=== PATIENT | female | born 1945 | race Caucasian/White ===

== ENCOUNTER 2019-03-07 14:50 | Emergency (ER) | payer OTHER, MEDICAID ==
[~2019-03-07] VITALS: Ht 154.9 cm; Wt 108.9 kg
[2019-03-07 16:19] LABS: BASO % 0 % (0-3); EOS % 0 % (0-3); HEMOGLOBIN 13.4 g/dL (12.0-15.5); LYMPH # 1.4 x10^3/uL (1.0-4.8); LYMPH % 24 % (24-48); MEAN CORPUSCULAR HEMOGLOBIN 31 pg (25-35); MEAN CORPUSCULAR HGB CONC 34 g/dL (31-37); MEAN CORPUSCULAR VOLUME 91 fL (79-100); MONO # 0.7 x10^3/uL (0.0-1.1); MONO % 11 % (0-9); NEUT % 65 % (31-73); PLATELET COUNT 226 x10^3/uL (140-400); RED CELL DISTRIBUTION WIDTH 14.3 % (11.5-14.5); WHITE BLOOD COUNT 6.1 x10^3/uL (4.0-11.0)
[2019-03-07 16:28] LABS: CALCIUM 8.7 mg/dL (8.5-10.1); CREATININE 1.5 mg/dL (0.6-1.0); GFR 34.2; POTASSIUM 4.1 mmol/L (3.5-5.1)
--- NOTE | 2019-03-07 16:30 | RAD ---
Exam: Chest one view INDICATION: Bilateral lower extremity edema TECHNIQUE: Frontal view of the chest Comparisons: None FINDINGS: Heart is mildly enlarged. Pulmonary vessels are within normal limits. The lung and pleural spaces are clear. Sternotomy wires are noted. IMPRESSION: Cardiomegaly without acute pulmonary process. Electronically signed by: Ricardo Rosenberg MD (03/07/2019 4:27 PM) [facility]
[2019-03-07 16:34] LABS: ALBUMIN 3.5 g/dL (3.4-5.0); MAGNESIUM 1.8 mg/dL (1.8-2.4); TOTAL BILIRUBIN 0.6 mg/dL (0.2-1.0); TOTAL PROTEIN 7.1 g/dL (6.4-8.2)
[2019-03-07 16:38] LABS: BILIRUBIN,URINE NEGATIVE (NEG); CLARITY,URINE CLEAR; COLOR,URINE YELLOW; NITRITE,URINE NEGATIVE (NEG); PH,URINE 7.5; PROTEIN,URINE NEGATIVE (NEG-TRACE)
[2019-03-07 16:43] LABS: CREATINE KINASE 64 U/L (26-192)
[2019-03-07 16:48] LABS: BACTERIA,URINE MOD /HPF (0-FEW); RBC,URINE OCC /HPF (0-2); SQUAMOUS EPITHELIAL CELL,UR OCC /LPF
--- NOTE | 2019-03-07 17:03 | PHYS DOC ---
Past Medical History Past Medical History: Depression, High Cholesterol, Hypertension, Renal Failure, Other Additional Past Medical Histor: neuropathy (RANDEE COX APRN) Past Surgical History: Cholecystectomy, Coronary Bypass Surgery, Knee Replacement, Other Additional Past Surgical Histo: esophageal repair (RANDEE COX APRN) Additional Information: quit smoking 20-25 years ago Alcohol Use: None Drug Use: None (RANDEE COX APRN) Adult General Chief Complaint Chief Complaint: LOWER EXTREMITY SWELLING HPI HPI Patient is a 73 year old female with a history of open heart surgery years ago, depression, hypertension, renal failure, who presents to the ED today complaining of ongoing bilateral lower extremity swelling that began weeks ago but has gotten worse in the last 2 weeks. Patient was seen by the PCP, a few weeks ago was started Lasix but swelling has gotten worse, she states her PCP sent him to the ED today to be evaluated for CHF. Patient denies any chest pain. (RANDEE COX APRN) Review of Systems Review of Systems Constitutional: Denies fever or chills [] Eyes: Denies change in visual acuity, redness, or eye pain [] HENT: Denies nasal congestion or sore throat [] Respiratory: Denies cough or shortness of breath [] Cardiovascular: Reports bilateral lower extremity swelling and possible CHF. No additional information not addressed in HPI [] GI: Denies abdominal pain, nausea, vomiting, bloody stools or diarrhea [] : Denies dysuria or hematuria [] Musculoskeletal: Denies back pain or joint pain [] Integument: Denies rash or skin lesions [] Neurologic: Denies headache, focal weakness or sensory changes [] All other systems were reviewed and found to be within normal limits, except as documented in this note. (RANDEE COX APRN) Current Medications Current Medications Current Medications Medications (Trade) Dose Ordered Sig/Carmelo Start Time Stop Time Status Last Admin Dose Admin Furosemide (Lasix) 40 mg 1X ONCE 03/07/19 17:45 03/07/19 17:46 DC (BETITO NAVA MD) Allergies Allergies Allergies Coded Allergies Type Severity Reaction Last Updated Verified No Known Drug Allergies 03/07/19 No (BETITO NAVA MD) Physical Exam Physical Exam Constitutional: Well developed, well nourished, no acute distress, non-toxic appearance. [] HENT: Normocephalic, atraumatic, bilateral external ears normal, oropharynx moist, no oral exudates, nose normal. [] Eyes: PERRLA, EOMI, conjunctiva normal, no discharge. [] Neck: Normal range of motion, no tenderness, supple, no stridor. [] Cardiovascular:Heart rate regular rhythm, no murmur [] Lungs & Thorax: Bilateral breath sounds clear to auscultation [] Abdomen: Bowel sounds normal, soft, no tenderness, no masses, no pulsatile masses. [] Skin: Warm, dry, no erythema, no rash. [] Back: No tenderness, no CVA tenderness. [] Extremities: No tenderness, no cyanosis, no clubbing, ROM intact. +2 bilateral lower extremity edema slightly worse on the left than the right area negative Homans sign bilaterally. No erythema to bilateral lower extremities. Neurologic: Alert and oriented X 3, normal motor function, normal sensory fu nction, no focal deficits noted. [] Psychologic: Affect normal, judgement normal, mood normal. [] (RANDEE COX APRN) Current Patient Data Vital Signs Vital Signs Date Time Temp Pulse Resp B/P (MAP) Pulse Ox O2 Delivery O2 Flow Rate FiO2 03/07/19 15:51 98.1 63 20 136/63 (87) 95 Room Air 98.1 (BETITO NAVA MD) Lab Values Laboratory Tests Test 03/07/19 16:00 03/07/19 16:10 White Blood Count 6.1 x10^3/uL (4.0-11.0) Red Blood Count 4.30 x10^6/uL (3.50-5.40) Hemoglobin 13.4 g/dL (12.0-15.5) Hematocrit 39.0 % (36.0-47.0) Mean Corpuscular Volume 91 fL (79-100) Mean Corpuscular Hemoglobin 31 pg (25-35) Mean Corpuscular Hemoglobin Concent 34 g/dL (31-37) Red Cell Distribution Width 14.3 % (11.5-14.5) Platelet Count 226 x10^3/uL (140-400) Neutrophils (%) (Auto) 65 % (31-73) Lymphocytes (%) (Auto) 24 % (24-48) Monocytes (%) (Auto) 11 % (0-9) H Eosinophils (%) (Auto) 0 % (0-3) Basophils (%) (Auto) 0 % (0-3) Neutrophils # (Auto) 4.0 x10^3/uL (1.8-7.7) Lymphocytes # (Auto) 1.4 x10^3/uL (1.0-4.8) Monocytes # (Auto) 0.7 x10^3/uL (0.0-1.1) Eosinophils # (Auto) 0.0 x10^3/uL (0.0-0.7) Basophils # (Auto) 0.0 x10^3/uL (0.0-0.2) Sodium Level 144 mmol/L (136-145) Potassium Level 4.1 mmol/L (3.5-5.1) Chloride Level 108 mmol/L (98-107) H Carbon Dioxide Level 28 mmol/L (21-32) Anion Gap 8 (6-14) Blood Urea Nitrogen 34 mg/dL (7-20) H Creatinine 1.5 mg/dL (0.6-1.0) H Estimated GFR (Cockcroft-Gault) 34.2 BUN/Creatinine Ratio 23 (6-20) H Glucose Level 105 mg/dL (70-99) H Calcium Level 8.7 mg/dL (8.5-10.1) Magnesium Level 1.8 mg/dL (1.8-2.4) Total Bilirubin 0.6 mg/dL (0.2-1.0) Aspartate Amino Transferase (AST) 15 U/L (15-37) Alanine Aminotransferase (ALT) 18 U/L (14-59) Alkaline Phosphatase 76 U/L (46-116) Creatine Kinase 64 U/L (26-192) Creatine Kinase MB (Mass) 0.6 ng/mL (0.0-3.6) Creatine Kinase MB Relative Index % (0-4) Troponin I Quantitative < 0.017 ng/mL (0.000-0.055) YG-Jrk-G-Type Natriuretic Peptide 778 pg/mL (0-124) H Total Protein 7.1 g/dL (6.4-8.2) Albumin 3.5 g/dL (3.4-5.0) Albumin/Globulin Ratio 1.0 (1.0-1.7) Urine Color Yellow Urine Clarity Clear Urine pH 7.5 Urine Specific [place] 1.015 Urine Protein Negative mg/dL (NEG-TRACE) Urine Glucose (UA) Negative mg/dL (NEG) Urine Ketones (Stick) Negative mg/dL (NEG) Urine Blood Negative (NEG) Urine Nitrite Negative (NEG) Urine Bilirubin Negative (NEG) Urine Urobilinogen Dipstick 1.0 mg/dL (0.2 mg/dL) Urine Leukocyte Esterase Moderate (NEG) Urine RBC Occ /HPF (0-2) Urine WBC 5-10 /HPF (0-4) Urine Squamous Epithelial Cells Occ /LPF Urine Bacteria Mod /HPF (0-FEW) Urine Mucus Mod /LPF Laboratory Tests 03/07/19 16:00 Laboratory Tests 03/07/19 16:00 (BETITO NAVA MD) EKG EKG [address] Lockett sinus rhythm HR 61 no STEMI[] (RANDEE COX APRN) Radiology/Procedures Radiology/Procedures []PROCEDURE: PORTABLE CHEST 1V Exam: Chest one view INDICATION: Bilateral lower extremity edema TECHNIQUE: Frontal view of the chest Comparisons: None FINDINGS: Heart is mildly enlarged. Pulmonary vessels are within normal limits. The lung and pleural spaces are clear. Sternotomy wires are noted. IMPRESSION: Cardiomegaly without acute pulmonary process. Electronically signed by: Ricardo Márquez MD (03/07/2019 4:27 PM) [facility] DICTATED and SIGNED BY: RICARDO MÁRQUEZ MD DATE: 03/07/19 6080 (RANDEE COX APRN) Course & Med Decision Making Course & Med Decision Making Pertinent Labs and Imaging studies reviewed. (See chart for details) This is a 73-year-old female patient presenting to the ED today to be evaluated for possible CHF, has had bilateral lower extremity swelling for weeks. Was started on Lasix a few weeks ago. CBC-no acute findings, CMP creatinine of 1.5-baseline, BUN of 34, BNP 778. Chest xray in negative vitals are stable. Wanting to be d/c. Given lasik and d/c to home. F/u with exhibit cleaner in March for her appointment and PCP as soon as she can. Elevation of BLE encouraged as well as compression stockings (RANDEE COX APRN) Course & Med Decision Making Staff Physician Addendum: I was working in the ER during the course of this patient's visit. I was available for consultation as needed, but I was not directly involved in the care of this patient. (BETITO NAVA MD) Dragon Disclaimer Dragon Disclaimer This electronic medical record was generated, in whole or in part, using a voice recognition dictation system. (RANDEE COX APRN) Departure Departure Impression: Primary Impression: CHF (congestive heart failure) Additional Impression: Edema Disposition: 01 HOME, SELF-CARE Condition: STABLE Referrals: HERBIE LOUIS M.D. (PCP) follow up as soon as you can JANUSZ PLASCENCIA MD follow up in one week Patient Instructions: Edema, [id number], Heart Failure, [id number] Additional Instructions: You were seen in the Ed and noted to have congestion heart failure. Please follow up with your cardilogist was soon as you can, continue taking Lasix, elevate bilateral lower extremities, wear compression stockings. Also follow-up with your primary care doctor as soon as possible Problem Qualifiers Primary Impression: CHF (congestive heart failure) Heart failure type: unspecified Heart failure chronicity: acute Qualified Codes: I50.9 - Heart failure, unspecified Additional Impression: Edema Edema type: unspecified Qualified Codes: R60.9 - Edema, unspecified RANDEE COX APRN Mar 07, 2019 17:03 BETITO NAVA MD Mar 07, 2019 18:19
[2019-03-07] MEDS ORDERED: FUROSEMIDE 40 MG/4 ML VIAL. IVP ONE (17:45)
[2019-03-07 18:44] VITALS: BP 147/64
--- NOTE | 2019-03-08 02:16 | EKG ---
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
== END 2019-03-07 18:53 | disposition home or self-care (01) ==
LOC: ER 14:50
DX: R60.0 Localized edema (principal); I11.0 Hypertensive heart disease with heart failure; I50.9 Heart failure, unspecified; F32.9 Major depressive disorder, single episode, unspecified; Z90.49 Acquired absence of other specified parts of digestive tract; Z95.5 Presence of coronary angioplasty implant and graft; Z87.891 Personal history of nicotine dependence; Z96.659 Presence of unspecified artificial knee joint
CPT/HCPCS: 36415; 71045; 80053; 81001; 82553; 83735; 83880; 84484; 85025; 93005; 96374; 99285; J1940; 99284

== ENCOUNTER → 2019-04-06 | Outpatient (CLI) | payer MEDICARE, MEDICAID ==
[2019-03-07 18:44] VITALS: BP 147/64
[~2019-04-06] MED LIST: AMLO10TA8 PO; ASPI-630 PO; CARV25TA2 PO; FLUO40CA2 PO; FURO40TA4 PO; GABA600T7 PO; MULT-245 PO; PANT40TA77 PO; POTA20TA82 PO; SIMV20TA18 PO; TRAM50TA PO; TRAZ-86 PO; [UNRECOGNIZED DRUG - OTHER] PO
--- NOTE | 2019-04-06 14:59 | RAD ---
MR#: [id number] Date of Study: 04/06/2019 Ordering Physician: JANUSZ PLASCENCIA, Referring Physician: JANUSZ PLASCENCIA, Tech: JONATHAN Castro, RDMS, T APPROVED REPORT Patient Location : OUT-PATIENT Indications Lower Extremity Pain : Bilateral Lower Extremity Edema : Bilateral The bilateral SFJ are free of thrombus. The RGSV measures 6.1 mm and has no reflux The LGSV has been removed for bypass. No collateral flow noted. The bilateral lesser saphenous veins are w/o reflux. Risk Factors Obesity Past History GSV Harvesting for CABG : Left GSV Compression Stockings : Critical Notification Critical Value: No <Conclusion> 1. Negative for reflux in the RGSV and bilateral LSV 2. L GSV removed for bypass Signed by : Ozzie Boggs, Electronically Approved : 04/06/2019 14:58:41
== END | disposition home or self-care (01) ==
LOC: KCIC US 12:08
PROVIDERS: ATTEND Internal Medicine Cardiovascular Disease
DX: R60.0 Localized edema (principal); Z95.1 Presence of aortocoronary bypass graft
CPT/HCPCS: 93970

== ENCOUNTER 2019-05-27 13:12 | Inpatient (IN) | payer OTHER, MEDICAID ==
[~2019-05-27] VITALS: Ht 160 cm; Wt 109.0 kg
[2019-05-27] VITALS (16 sets, daily range): BP systolic 131–205; BP diastolic 66–86
--- NOTE | 2019-05-27 13:25 | PHYS DOC ---
Past Medical History Past Medical History: Depression, High Cholesterol, Hypertension, Renal Failure, Other Additional Past Medical Histor: neuropathy Past Surgical History: Cholecystectomy, Coronary Bypass Surgery, Knee R eplacement, Other Additional Past Surgical Histo: esophageal repair Alcohol Use: None Drug Use: None Adult General Chief Complaint Chief Complaint: TONGUE SWELLING/INJURY HPI HPI Patient is a 73 year old tONGUE SWELLING ONSET THIS MORNING CAME FROM HOME. Denies any new medications or foods just noticed it this morning when she woke up to have some mild shortness of breath feels like something is stuck back there her throat. Has a history of congestive heart failure and prior CABG Medics gave Benadryl prior to arrival Medications include tramadol fluoxetine. gabapentin carvedilol Klor-Con Lasix Zocor trazodone pantoprazole and amlodipine. This is based on [employer] medication review patient does not know her current medications as far as we know there is no MANPREET inhibitor. PMH PRIOR CABG AND ALSO PATIENT HAS A PRIOR ESOPHAGEAL SURGERY RUPTURE S/P MAJOR [id number] AT [facility] HTN Review of Systems Review of Systems Constitutional: Denies fever or chills [] Eyes: Denies change in visual acuity, redness, or eye pain [] HENT: Denies nasal congestion or sore throat [] Respiratory: Denies cough or shortness of breath [] Cardiovascular: No additional information not addressed in HPI [] GI: Denies abdominal pain, nausea, vomiting, bloody stools or diarrhea [] : Denies dysuria or hematuria [] Musculoskeletal: Denies back pain or joint pain [] Integument: Denies rash or skin lesions [] Neurologic: Denies headache, focal weakness or sensory changes [] Endocrine: Denies polyuria or polydipsia [] All other systems were reviewed and found to be within normal limits, except as documented in this note. Current Medications Current Medications Current Medications Medications (Trade) Dose Ordered Sig/Carmelo Start Time Stop Time Status Last Admin Dose Admin Diphenhydramine HCl (Benadryl) 25 mg 1X ONCE 05/27/19 14:00 05/27/19 14:01 DC 05/27/19 14:17 25 MG Hydralazine HCl (Apresoline Inj) 10 mg 1X ONCE 05/27/19 14:00 05/27/19 14:01 DC 05/27/19 14:19 10 MG Methylprednisolone Sodium Succinate (SOLU-Medrol 125MG VIAL) 125 mg 1X ONCE 05/27/19 13:30 05/27/19 13:31 DC 05/27/19 13:34 125 MG Allergies Allergies Allergies Coded Allergies Type Severity Reaction Last Updated Verified No Known Drug Allergies 03/07/19 No Physical Exam Physical Exam Constitutional: Well developed, well nourished, no acute distress, non-toxic appearance. [] HENT: Patient is mild to moderate swelling of the tongue is mostly on the lateral right side aspect of the tongue and goes from anterior to posterior is also some mild fullness of the right tonsillar pillar the uvula is visualized the airway appears patent at this time the patient has a fairly clear voice no stridor no respiratory distress. No lip swelling Neck: Normal range of motion, no tenderness, supple, no stridor. [] Cardiovascular:Heart rate regular rhythm, no murmur [] Lungs & Thorax: Bilateral breath sounds clear to auscultation [] Abdomen: Bowel sounds normal, soft, no tenderness, no masses, no pulsatile masses. [] Skin: Warm, dry, no erythema, no rash. [] Back: No tenderness, no CVA tenderness. [] Extremities: No tenderness, no cyanosis, no clubbing, ROM intact, no edema. [] Neurologic: Alert and oriented X 3, normal motor function, normal sensory function, no focal deficits noted. [] Psychologic: Affect normal, judgement normal, mood normal. [] Current Patient Data Vital Signs Vital Signs Date Time Temp Pulse Resp B/P (MAP) Pulse Ox O2 Delivery O2 Flow Rate FiO2 05/27/19 14:00 76 16 202/85 (124) 98 Room Air 05/27/19 13:15 98.0 98.0 Lab Values Laboratory Tests Test 05/27/19 13:20 White Blood Count 6.4 x10^3/uL (4.0-11.0) Red Blood Count 4.87 x10^6/uL (3.50-5.40) Hemoglobin 15.0 g/dL (12.0-15.5) Hematocrit 44.3 % (36.0-47.0) Mean Corpuscular Volume 91 fL (79-100) Mean Corpuscular Hemoglobin 31 pg (25-35) Mean Corpuscular Hemoglobin Concent 34 g/dL (31-37) Red Cell Distribution Width 13.7 % (11.5-14.5) Platelet Count 255 x10^3/uL (140-400) Neutrophils (%) (Auto) 70 % (31-73) Lymphocytes (%) (Auto) 20 % (24-48) L Monocytes (%) (Auto) 10 % (0-9) H Eosinophils (%) (Auto) 0 % (0-3) Basophils (%) (Auto) 0 % (0-3) Neutrophils # (Auto) 4.5 x10^3/uL (1.8-7.7) Lymphocytes # (Auto) 1.3 x10^3/uL (1.0-4.8) Monocytes # (Auto) 0.6 x10^3/uL (0.0-1.1) Eosinophils # (Auto) 0.0 x10^3/uL (0.0-0.7) Basophils # (Auto) 0.0 x10^3/uL (0.0-0.2) Prothrombin Time 12.6 SEC (11.7-14.0) Prothrombin Time INR 1.0 (0.8-1.1) Sodium Level 145 mmol/L (136-145) Potassium Level 3.8 mmol/L (3.5-5.1) Chloride Level 105 mmol/L (98-107) Carbon Dioxide Level 29 mmol/L (21-32) Anion Gap 11 (6-14) Blood Urea Nitrogen 19 mg/dL (7-20) Creatinine 1.1 mg/dL (0.6-1.0) H Estimated GFR (Cockcroft-Gault) 49.0 BUN/Creatinine Ratio 17 (6-20) Glucose Level 106 mg/dL (70-99) H Calcium Level 8.7 mg/dL (8.5-10.1) Total Bilirubin 0.6 mg/dL (0.2-1.0) Aspartate Amino Transferase (AST) 22 U/L (15-37) Alanine Aminotransferase (ALT) 22 U/L (14-59) Alkaline Phosphatase 92 U/L (46-116) LA-Wjo-V-Type Natriuretic Peptide 453 pg/mL (0-124) H Total Protein 7.7 g/dL (6.4-8.2) Albumin 3.8 g/dL (3.4-5.0) Albumin/Globulin Ratio 1.0 (1.0-1.7) Laboratory Tests 05/27/19 13:20 Laboratory Tests 05/27/19 13:20 EKG EKG [] Radiology/Procedures Radiology/Procedures [] Course & Med Decision Making Course & Med Decision Making Pertinent Labs and Imaging studies reviewed. (See chart for details) []ANGIOEDEMA TRY SOLUMEDROL AND FFP. GIVEN BENADRYL. NO EPI DUE TO PRESSURE 215 AND LOWER CONCERN FOR ANAPHYLAXIS I SPOKE WITH TREY FROM ANESTHESIA, HERMILA CAME DOWN TO SEE THE PATIENT, AGREES WITH ICU ADMIT FOR CLOSE OBSERVATION I CALLED DR LAWLER A HEADS UP PT IS STABLE AT THIS TIME, HE IS AWARE OF PATIENT, HE IS OPERATING OVER AT [facility] AT THIS TIME. REASSESSMENT 2 PM, PT STATES FEELS THAT THE SWELLING IS GOING DOWN A LITTLE BIT AND SOMEWHAT EASIER TO BREATHE. Critical care time was 35 minutes exclusive of procedures. FOR CLOSE AIRWAY MONITORING IN THE ER pt with improved symptoms in the er. still swelling not worse possibly slightly better, pt is symptomatically improved transferred to icu in stable condition, ffp being hung. Dragon Disclaimer Dragon Disclaimer This electronic medical record was generated, in whole or in part, using a voice recognition dictation system. Departure Departure Impression: Primary Impression: Angioedema Disposition: ADMITTED INPATIENT Admitting Physician: OMAR Condition: GUARDED Referrals: TERRY HICKMAN MD (PCP) BETITO NAVA MD May 27, 2019 13:25
[2019-05-27] MEDS ORDERED: methylPREDNISolone SOD SUCC PF 125 MG/2 ML VIAL. IV ONE (13:30)
[2019-05-27 13:34] LABS: BASO % 0 % (0-3); EOS % 0 % (0-3); HEMATOCRIT 44.3 % (36.0-47.0); LYMPH # 1.3 x10^3/uL (1.0-4.8); LYMPH % 20 % (24-48); MEAN CORPUSCULAR HEMOGLOBIN 31 pg (25-35); MEAN CORPUSCULAR HGB CONC 34 g/dL (31-37); MEAN CORPUSCULAR VOLUME 91 fL (79-100); MONO # 0.6 x10^3/uL (0.0-1.1); MONO % 10 % (0-9); NEUT # 4.5 x10^3/uL (1.8-7.7); NEUT % 70 % (31-73); PLATELET COUNT 255 x10^3/uL (140-400); RED BLOOD COUNT 4.87 x10^6/uL (3.50-5.40); RED CELL DISTRIBUTION WIDTH 13.7 % (11.5-14.5); WHITE BLOOD COUNT 6.4 x10^3/uL (4.0-11.0)
[2019-05-27 13:44] LABS: CALCIUM 8.7 mg/dL (8.5-10.1); CREATININE 1.1 mg/dL (0.6-1.0); POTASSIUM 3.8 mmol/L (3.5-5.1); PROTHROMBIN TIME PATIENT 12.6 SEC (11.7-14.0)
[2019-05-27 13:49] LABS: ALBUMIN 3.8 g/dL (3.4-5.0); TOTAL BILIRUBIN 0.6 mg/dL (0.2-1.0); TOTAL PROTEIN 7.7 g/dL (6.4-8.2)
[2019-05-27] MEDS ORDERED: diphenhydrAMINE 50 MG/ML VIAL IVP ONE (14:00)
[2019-05-27] MEDS ORDERED: hydrALAZINE 20 MG/ML VIAL. IVP ONE (14:00)
--- NOTE | 2019-05-27 14:16 | PDOC1 ---
History and Physical Date of Admission Date of Admission DATE: 05/27/19 TIME: 14:15 Identification/Chief Complaint Chief Complaint SEEN IN ER 73 year old SEVERE TONGUE SWELLING ONSET THIS MORNING CAME FROM HOME. Denies any new medications or foods just noticed it this morning when she woke up to have some mild shortness of breath feels like something is stuck back there her throat TONGUE MODERATELY SWOLLEN, UPPER THROAT SWELLING, TIGHTNESS. SUSPECT GABAPENTIN IS CULPRIT, although she had new hernandes beans yesterday Past Medical History Past Medical History Past Medical History Past Medical History Past Medical History: Depression, High Cholesterol, Hypertension, Renal Failure, Other Additional Past Medical Histor: neuropathy Past Surgical History: Cholecystectomy, Coronary Bypass Surgery, Knee Replacement, Other Additional Past Surgical Histo: esophageal repair Alcohol Use: None Drug Use: None FHX OBESITY Cardiovascular: CAD Family History Family History: High Cholestrol Social History Smoke: No ALCOHOL: none Drugs: None Current Problem List Problem List Problems Medical Problems: (1) Angioedema Status: Acute Current Medications Current Medications Current Medications Methylprednisolone Sodium Succinate (SOLU-Medrol 125MG VIAL) 125 mg 1X ONCE IV Last administered on 05/27/19at 13:34; Start 05/27/19 at 13:30; Stop 05/27/19 at 13:31; Status DC Hydralazine HCl (Apresoline Inj) 10 mg 1X ONCE IVP ; Start 05/27/19 at 14:00; Stop 05/27/19 at 14:01; Status DC Diphenhydramine HCl (Benadryl) 25 mg 1X ONCE IVP ; Start 05/27/19 at 14:00; Stop 05/27/19 at 14:01; Status DC Allergies Allergies: Coded Allergies: No Known Drug Allergies (Unverified , 03/07/19) ROS Review of System Review of Systems Review of Systems Constitutional: Denies fever or chills [] Eyes: Denies change in visual acuity, redness, or eye pain [] HENT: Denies nasal congestion or sore throat TONGUE MODERATELY SWOLLEN [] Respiratory: POS shortness of breath [] Cardiovascular: No additional information not addressed in HPI [] GI: Denies abdominal pain, nausea, vomiting, bloody stools or diarrhea [] : Denies dysuria or hematuria [] Musculoskeletal: Denies back pain or joint pain [] Integument: Denies rash or skin lesions [] Neurologic: Denies headache, focal weakness or sensory changes [] Endocrine: Denies polyuria or polydipsia [] 14 PT systems were reviewed and found to be within normal limits, except as documented Physical Exam Physical Exam Physical Exam Physical Exam Constitutional: Well developed, well nourished, no acute distress, non-toxic appearance. [] HENT: Patient is mild to moderate swelling of the tongue is mostly on the lateral right side aspect of the tongue and goes from anterior to posterior is also some mild fullness of the right tonsillar pillar the uvula is visualized the airway appears patent at this time the patient has a fairly clear voice no stridor no respiratory distress. No lip swelling Neck: Normal range of motion, no tenderness, supple, no stridor. [] Cardiovascular:Heart rate regular rhythm, no murmur [] Lungs & Thorax: Bilateral breath sounds clear to auscultation [] Abdomen: Bowel sounds normal, soft, no tenderness, no masses, no pulsatile masses. [] Skin: Warm, dry, no erythema, no rash. [] Back: No tenderness, no CVA tenderness. [] Extremities: No tenderness, no cyanosis, no clubbing, ROM intact, no edema. [] Neurologic: Alert and oriented X 3, normal motor function, normal sensory function, no focal deficits noted. [] Psychologic: Affect normal, judgement normal, mood normal. [] Vitals Vitals Vital Signs Date Time Temp Pulse Resp B/P (MAP) Pulse Ox O2 Delivery O2 Flow Rate FiO2 05/27/19 13:15 98.0 80 16 212/99 (136) 100 Room Air 98.0 Labs Labs Laboratory Tests Test 05/27/19 13:20 White Blood Count 6.4 x10^3/uL (4.0-11.0) Red Blood Count 4.87 x10^6/uL (3.50-5.40) Hemoglobin 15.0 g/dL (12.0-15.5) Hematocrit 44.3 % (36.0-47.0) Mean Corpuscular Volume 91 fL (79-100) Mean Corpuscular Hemoglobin 31 pg (25-35) Mean Corpuscular Hemoglobin Concent 34 g/dL (31-37) Red Cell Distribution Width 13.7 % (11.5-14.5) Platelet Count 255 x10^3/uL (140-400) Neutrophils (%) (Auto) 70 % (31-73) Lymphocytes (%) (Auto) 20 % (24-48) Monocytes (%) (Auto) 10 % (0-9) Eosinophils (%) (Auto) 0 % (0-3) Basophils (%) (Auto) 0 % (0-3) Neutrophils # (Auto) 4.5 x10^3/uL (1.8-7.7) Lymphocytes # (Auto) 1.3 x10^3/uL (1.0-4.8) Monocytes # (Auto) 0.6 x10^3/uL (0.0-1.1) Eosinophils # (Auto) 0.0 x10^3/uL (0.0-0.7) Basophils # (Auto) 0.0 x10^3/uL (0.0-0.2) Prothrombin Time 12.6 SEC (11.7-14.0) Prothromb Time International Ratio 1.0 (0.8-1.1) Sodium Level 145 mmol/L (136-145) Potassium Level 3.8 mmol/L (3.5-5.1) Chloride Level 105 mmol/L (98-107) Carbon Dioxide Level 29 mmol/L (21-32) Anion Gap 11 (6-14) Blood Urea Nitrogen 19 mg/dL (7-20) Creatinine 1.1 mg/dL (0.6-1.0) Estimated GFR (Cockcroft-Gault) 49.0 BUN/Creatinine Ratio 17 (6-20) Glucose Level 106 mg/dL (70-99) Calcium Level 8.7 mg/dL (8.5-10.1) Total Bilirubin 0.6 mg/dL (0.2-1.0) Aspartate Amino Transf (AST/SGOT) 22 U/L (15-37) Alanine Aminotransferase (ALT/SGPT) 22 U/L (14-59) Alkaline Phosphatase 92 U/L (46-116) NJ-Lqx-L-Type Natriuretic Peptide 453 pg/mL (0-124) Total Protein 7.7 g/dL (6.4-8.2) Albumin 3.8 g/dL (3.4-5.0) Albumin/Globulin Ratio 1.0 (1.0-1.7) Laboratory Tests Test 05/27/19 13:20 White Blood Count 6.4 x10^3/uL (4.0-11.0) Red Blood Count 4.87 x10^6/uL (3.50-5.40) Hemoglobin 15.0 g/dL (12.0-15.5) Hematocrit 44.3 % (36.0-47.0) Mean Corpuscular Volume 91 fL (79-100) Mean Corpuscular Hemoglobin 31 pg (25-35) Mean Corpuscular Hemoglobin Concent 34 g/dL (31-37) Red Cell Distribution Width 13.7 % (11.5-14.5) Platelet Count 255 x10^3/uL (140-400) Neutrophils (%) (Auto) 70 % (31-73) Lymphocytes (%) (Auto) 20 % (24-48) Monocytes (%) (Auto) 10 % (0-9) Eosinophils (%) (Auto) 0 % (0-3) Basophils (%) (Auto) 0 % (0-3) Neutrophils # (Auto) 4.5 x10^3/uL (1.8-7.7) Lymphocytes # (Auto) 1.3 x10^3/uL (1.0-4.8) Monocytes # (Auto) 0.6 x10^3/uL (0.0-1.1) Eosinophils # (Auto) 0.0 x10^3/uL (0.0-0.7) Basophils # (Auto) 0.0 x10^3/uL (0.0-0.2) Prothrombin Time 12.6 SEC (11.7-14.0) Prothromb Time International Ratio 1.0 (0.8-1.1) Sodium Level 145 mmol/L (136-145) Potassium Level 3.8 mmol/L (3.5-5.1) Chloride Level 105 mmol/L (98-107) Carbon Dioxide Level 29 mmol/L (21-32) Anion Gap 11 (6-14) Blood Urea Nitrogen 19 mg/dL (7-20) Creatinine 1.1 mg/dL (0.6-1.0) Estimated GFR (Cockcroft-Gault) 49.0 BUN/Creatinine Ratio 17 (6-20) Glucose Level 106 mg/dL (70-99) Calcium Level 8.7 mg/dL (8.5-10.1) Total Bilirubin 0.6 mg/dL (0.2-1.0) Aspartate Amino Transf (AST/SGOT) 22 U/L (15-37) Alanine Aminotransferase (ALT/SGPT) 22 U/L (14-59) Alkaline Phosphatase 92 U/L (46-116) FD-Yyp-J-Type Natriuretic Peptide 453 pg/mL (0-124) Total Protein 7.7 g/dL (6.4-8.2) Albumin 3.8 g/dL (3.4-5.0) Albumin/Globulin Ratio 1.0 (1.0-1.7) VTE Prophylaxis Ordered VTE Prophylaxis Devices: No VTE Pharmacological Prophylaxi: Yes Assessment/Plan Assessment/Plan Impression: acute Angioedema mod severe, /// suspect GABAPENTIN ALLERGY MORBID OBESITY HYPERTENSIVE URGENCY HX CABG remote ADMITTED ICU BED HOLD GABAPENTIN IV STEROIDS IV PEPSID DVT PROPHYLAXIS IV HYDRALAZINE 10MG Q 4 HRS PRN BP SUPPORT cxr 37 MIN CC TIME DOROTHY LEBLANC MD May 27, 2019 14:16
[2019-05-27] MEDS ORDERED: diphenhydrAMINE 50 MG/ML VIAL IVP PRN ×2 (15:45→16:00)
[2019-05-27] MEDS ORDERED: 0.9 % SODIUM CHLORIDE 10 ML DISP.SYRIN. IV PRN (16:00)
[2019-05-27] MEDS ORDERED: guaiFENesin ORAL 200 MG/10 ML LIQUID. PO PRN (16:00)
[2019-05-27] MEDS ORDERED: ALBUTEROL SULFATE 2.5 MG/3 ML NEBU. NEB PRN (16:00)
[2019-05-27] MEDS ORDERED: ONDANSETRON PF 4 MG/2 ML VIAL. IV PRN (16:00)
[2019-05-27] MEDS ORDERED: LORazepam 0.5 MG TABLET PO PRN (16:00)
[2019-05-27] MEDS ORDERED: DOCUSATE SODIUM 100 MG CAPSULE. PO PRN (16:00)
[2019-05-27] MEDS: hydrALAZINE 20 MG/ML VIAL. IVP PRN ×3 (16:20→20:04)
[2019-05-27 16:55] LABS: BILIRUBIN,URINE NEGATIVE (NEG); CLARITY,URINE CLEAR; COLOR,URINE YELLOW; NITRITE,URINE NEGATIVE (NEG); PROTEIN,URINE NEGATIVE (NEG-TRACE); UROBILINOGEN,URINE 0.2 mg/dL (0.2 mg/dL)
[2019-05-27 17:00] LABS: SQUAMOUS EPITHELIAL CELL,UR MOD /LPF
[2019-05-27 17:01] LABS: AMORPHOUS SEDIMENT,UR PRESENT /HPF; BACTERIA,URINE 0 /HPF (0-FEW); WBC,URINE OCC /HPF (0-4)
[2019-05-27 17:22] LABS: BARBITURATES NEG (NEG); BENZODIAZEPINES NEG (NEG); CANNABINOIDS NEG (NEG); COCAINE NEG (NEG); METHADONE NEG (NEG); OPIATES NEG (NEG); PHENCYCLIDINE NEG (NEG)
[2019-05-27 17:23] LABS: AMPHETAMINE/METHAMPHETAMINE NEG (NEG)
[2019-05-27] MEDS ORDERED: [UNRECOGNIZED DRUG - OTHER] PO (18:27)
[2019-05-27] MEDS ORDERED: MULT-245 PO (18:27)
[2019-05-27] MEDS ORDERED: TRAM50TA PO (18:56)
[2019-05-27] MEDS ORDERED: ASPI-630 PO (18:56)
[2019-05-27] MEDS ORDERED: TRAZ-86 PO (18:56)
[2019-05-27] MEDS ORDERED: GABA600T7 PO (18:56)
[2019-05-27] MEDS ORDERED: SIMV20TA18 PO (18:56)
[2019-05-27] MEDS ORDERED: FLUO40CA2 PO (18:56)
[2019-05-27] MEDS ORDERED: PANT40TA77 PO (18:56)
[2019-05-27] MEDS ORDERED: FURO40TA4 PO (18:56)
[2019-05-27] MEDS ORDERED: POTA20TA82 PO (18:56)
[2019-05-27] MEDS ORDERED: CARV25TA2 PO (18:56)
[2019-05-27] MEDS ORDERED: AMLO10TA8 PO (18:56)
--- NOTE | 2019-05-27 19:15 | NUR ---
Patient's swelling mild on right side of tongue only; patient states she is able to swallow and doesn't feel like her throat is swollen. Patient given small sip of juice to check swallowing--patient was able to swallow without difficultly, no cough, or need to clear her throat. SBP 170's-180's one hour after administration of Hydralazine 10MG IVP, Dr Tolbert paged. Dr Tolbert returned page, notified of SBP, patient able to swallow now, and reviewed home medications. Orders received to restart Norvasc 10MG PO daily, give a dose now and restart Coreg 12.5MG PO BID, give a dose now; see orders. Patient notified and is agreeable.
[2019-05-27] MEDS ORDERED: CARVEDILOL 12.5 MG TABLET. PO ONE (19:30)
[2019-05-27] MEDS ORDERED: amLODIPine BESYLATE 10 MG TABLET PO ONE (19:30)
[2019-05-27] MEDS ORDERED: diphenhydrAMINE HCL 25 MG CAPSULE PO PRN ×2 (19:30)
[2019-05-27] MEDS: ACETAMINOPHEN 325 MG TABLET. PO PRN (20:00)
[2019-05-27] MEDS: FAMOTIDINE 20 MG/2 ML VIAL IVP SCH (21:25)
[2019-05-27] MEDS: ENOXAPARIN 40 MG/0.4 ML SYRINGE. SQ SCH (21:25)
[2019-05-27] MEDS: methylPREDNISolone SOD SUCC PF 125 MG/2 ML VIAL. IV SCH (21:30)
--- NOTE | 2019-05-27 21:40 | NUR ---
Patient continues to complain of headache now with radiation to the back of her neck, she continues to rate 8/10 on Numeric pain scale, Dr Tolbert paged. Dr Tolbert returned page, notified of above pain even after administration of Tylenol. Orders received for Dilaudid 1MG IVP x1; see orders. Patient notified of pain med and also request heating pad to her neck.
[2019-05-27] MEDS ORDERED: HYDROmorphone 2 MG/ML VIAL IV ONE (22:00)
[2019-05-28] VITALS (15 sets, daily range): BP systolic 125–180; BP diastolic 64–87
[2019-05-28] MEDS: ACETAMINOPHEN 325 MG TABLET. PO PRN (00:08)
[2019-05-28] MEDS: hydrALAZINE 20 MG/ML VIAL. IVP PRN (05:09)
[2019-05-28] MEDS: methylPREDNISolone SOD SUCC PF 125 MG/2 ML VIAL. IV SCH (05:17)
--- NOTE | 2019-05-28 07:43 | RAD ---
PORTABLE CHEST 1V History: Angioedema Comparison: March 07, 2019 Findings: Single view of the chest is submitted. There again has been a median sternotomy. There is again tortuous thoracic aorta. Cardiac silhouette is stable, upper limits of normal. There is questionable increased hazy airspace opacity near the apices greater on the right. There is no dependent pleural fluid or pneumothorax. Impression: 1. There is questionable increased hazy airspace opacity near the apices greater on the right which may be due to mild infiltrate. Electronically signed by: Jeremi Almeida MD (05/28/2019 7:41 AM) [facility]
[2019-05-28] MEDS ORDERED: CARVEDILOL 12.5 MG TABLET. PO SCH (08:00)
[2019-05-28] MEDS: FAMOTIDINE 20 MG/2 ML VIAL IVP SCH (08:39)
[2019-05-28] MEDS: ENOXAPARIN 40 MG/0.4 ML SYRINGE. SQ SCH (08:40)
[2019-05-28] MEDS ORDERED: amLODIPine BESYLATE 10 MG TABLET PO SCH (09:00)
--- NOTE | 2019-05-28 12:49 | PDOC ---
[employer]GRESS NOTE Chief Complaint Chief Complaint Angioedema History of Present Illness History of Present Illness Patient is a 73 year old female. Patient's tongue began to swell this morning at home. Denies any new medications or foods just noticed it this morning when she woke up to have some mild shortness of breath feels like something is stuck back there her throat. Has a history of congestive heart failure and prior CABG 05/28: Patient seen and examined in ICU, DW daughter, who states that it was likely hernandes beans that caused the reaction, although, patient denies a history of hernandes medina allergy. patient has returned to baseline, will discharge. Vitals/I&O Vitals/I&O: Vital Signs Date Time Temp Pulse Resp B/P (MAP) Pulse Ox O2 Delivery O2 Flow Rate FiO2 05/28/19 12:00 88 23 166/78 (107) 97 Room Air 05/28/19 09:00 98.1 98.1 I & O 05/27/19 05/27/19 05/28/19 15:00 23:00 07:00 Intake Total 231 ml 331 ml 840 ml Output Total 500 ml 250 ml Balance 231 ml -169 ml 590 ml Physical Exam General: Alert, Oriented X3, Cooperative, No acute distress Heart: Regular rate, Normal S1, Normal S2, No murmurs Lungs: Clear Abdomen: Normal bowel sounds, Soft, No tenderness, No hepatosplenomegaly Extremities: No clubbing, No cyanosis, No edema Skin: No rashes, No breakdown Labs Labs: Laboratory Tests Test 05/27/19 13:20 05/27/19 16:40 White Blood Count 6.4 x10^3/uL (4.0-11.0) Red Blood Count 4.87 x10^6/uL (3.50-5.40) Hemoglobin 15.0 g/dL (12.0-15.5) Hematocrit 44.3 % (36.0-47.0) Mean Corpuscular Volume 91 fL (79-100) Mean Corpuscular Hemoglobin 31 pg (25-35) Mean Corpuscular Hemoglobin Concent 34 g/dL (31-37) Red Cell Distribution Width 13.7 % (11.5-14.5) Platelet Count 255 x10^3/uL (140-400) Neutrophils (%) (Auto) 70 % (31-73) Lymphocytes (%) (Auto) 20 % (24-48) Monocytes (%) (Auto) 10 % (0-9) Eosinophils (%) (Auto) 0 % (0-3) Basophils (%) (Auto) 0 % (0-3) Neutrophils # (Auto) 4.5 x10^3/uL (1.8-7.7) Lymphocytes # (Auto) 1.3 x10^3/uL (1.0-4.8) Monocytes # (Auto) 0.6 x10^3/uL (0.0-1.1) Eosinophils # (Auto) 0.0 x10^3/uL (0.0-0.7) Basophils # (Auto) 0.0 x10^3/uL (0.0-0.2) Prothrombin Time 12.6 SEC (11.7-14.0) Prothromb Time International Ratio 1.0 (0.8-1.1) Sodium Level 145 mmol/L (136-145) Potassium Level 3.8 mmol/L (3.5-5.1) Chloride Level 105 mmol/L (98-107) Carbon Dioxide Level 29 mmol/L (21-32) Anion Gap 11 (6-14) Blood Urea Nitrogen 19 mg/dL (7-20) Creatinine 1.1 mg/dL (0.6-1.0) Estimated GFR (Cockcroft-Gault) 49.0 BUN/Creatinine Ratio 17 (6-20) Glucose Level 106 mg/dL (70-99) Calcium Level 8.7 mg/dL (8.5-10.1) Total Bilirubin 0.6 mg/dL (0.2-1.0) Aspartate Amino Transf (AST/SGOT) 22 U/L (15-37) Alanine Aminotransferase (ALT/SGPT) 22 U/L (14-59) Alkaline Phosphatase 92 U/L (46-116) ED-Zbw-U-Type Natriuretic Peptide 453 pg/mL (0-124) Total Protein 7.7 g/dL (6.4-8.2) Albumin 3.8 g/dL (3.4-5.0) Albumin/Globulin Ratio 1.0 (1.0-1.7) Urine Collection Type Unknown Urine Color Yellow Urine Clarity Clear Urine pH 8.0 Urine Specific [place] 1.010 Urine Protein Negative mg/dL (NEG-TRACE) Urine Glucose (UA) Negative mg/dL (NEG) Urine Ketones (Stick) Negative mg/dL (NEG) Urine Blood Negative (NEG) Urine Nitrite Negative (NEG) Urine Bilirubin Negative (NEG) Urine Urobilinogen Dipstick 0.2 mg/dL (0.2 mg/dL) Urine Leukocyte Esterase Negative (NEG) Urine RBC 1-2 /HPF (0-2) Urine WBC Occ /HPF (0-4) Urine Squamous Epithelial Cells Mod /LPF Urine Amorphous Sediment Present /HPF Urine Bacteria 0 /HPF (0-FEW) Urine Opiates Screen Neg (NEG) Urine Methadone Screen Neg (NEG) Urine Barbiturates Neg (NEG) Urine Phencyclidine Screen Neg (NEG) Urine Amphetamine/Methamphetamine Neg (NEG) Urine Benzodiazepines Screen Neg (NEG) Urine Cocaine Screen Neg (NEG) Urine Cannabinoids Screen Neg (NEG) Urine Ethyl Alcohol Neg (NEG) Review of Systems Review of Systems: Patient denies numbness and tingling, SOB. Assessment and Plan Assessmemt and Plan Problems Medical Problems: (1) Angioedema Status: Acute Assessment: Angioedema Plan: 1. ICU monitoring 2. PO steroids and antihistamines 3. Discharge from ICU- patient is at baseline 4. DVT prophylaxis 5. Full code Comment Review of Relevant I have reviewed the following items terrance (where applicable) has been applied. Medications: Current Medications Medications (Trade) Dose Ordered Sig/Carmelo Route PRN Reason Start Time Stop Time Status Last Admin Dose Admin Methylprednisolone Sodium Succinate (SOLU-Medrol 125MG VIAL) 125 mg 1X ONCE IV 05/27/19 13:30 05/27/19 13:31 DC 05/27/19 13:34 Hydralazine HCl (Apresoline Inj) 10 mg 1X ONCE IVP 05/27/19 14:00 05/27/19 14:01 DC 05/27/19 14:19 Diphenhydramine HCl (Benadryl) 25 mg 1X ONCE IVP 05/27/19 14:00 05/27/19 14:01 DC 05/27/19 14:17 Hydralazine HCl (Apresoline Inj) 10 mg PRN Q2HRS PRN IVP ELEVATED BP, SEE COMMENTS 05/27/19 15:45 05/28/19 05:09 Methylprednisolone Sodium Succinate (SOLU-Medrol 125MG VIAL) 125 mg Q8HRS IV 05/27/19 22:00 05/28/19 05:17 Famotidine (Pepcid Vial) 20 mg BID IVP 05/27/19 21:00 05/28/19 08:39 Acetaminophen (Tylenol) 650 mg PRN Q4HRS PRN PO TEMP OVER 100.4F OR MILD PAIN 05/27/19 16:00 05/28/19 00:08 Enoxaparin Sodium (Lovenox 40mg Syringe) 40 mg Q12HR SQ 05/27/19 21:00 05/28/19 08:40 Amlodipine Besylate (Norvasc) 10 mg DAILY PO 05/28/19 09:00 05/28/19 08:39 Amlodipine Besylate (Norvasc) 10 mg 1X ONCE PO 05/27/19 19:30 05/27/19 19:31 DC 05/27/19 19:37 Carvedilol (Coreg) 12.5 mg BIDWMEALS PO 05/28/19 08:00 05/28/19 08:38 Carvedilol (Coreg) 12.5 mg 1X ONCE PO 05/27/19 19:30 05/27/19 19:31 DC 05/27/19 19:38 Diphenhydramine HCl (Benadryl) 50 mg PRN QHS PRN PO INSOMNIA 05/27/19 19:30 05/28/19 00:08 Hydromorphone HCl (Dilaudid) 1 mg 1X ONCE IV 05/27/19 22:00 05/27/19 22:01 DC 05/27/19 22:04 BARNEY RICH III DO May 28, 2019 12:49
--- NOTE | 2019-05-28 13:57 | NUR ---
Patient discharged to home via wheelchair with daughter. Patient had all belongings, understood discharge instructions, prescriptions given to daughter prior to discharge and she took them to get filled at [facility]. Patient's IV removed by this RN.
--- NOTE | 2019-05-28 19:14 | DS ---
DATE OF DISCHARGE: 05/28/2019 ADMISSION DIAGNOSIS: Angioedema secondary to hernandes beans. DISCHARGE DIAGNOSIS: Resolving angioedema. HOSPITAL COURSE: The patient is a pleasant middle-aged female who presented with angioedema secondary to hernandes beans. We admitted her, gave her IV steroids, IV Benadryl, IV Pepcid. Today, she was doing great. Her swelling was 99% gone. I discharged her with Medrol Dosepak, [id number] Pepcid and [id number] Benadryl. DISPOSITION: Home. ACTIVITY: As tolerated. DIET: Low sodium but no hernandes beans. ACTIVITY: As tolerated. TOTAL TIME: 32 minutes. BARNEY RICH DO DR: LILLIANA/brenda JOB#: [id number] / [id number]
== END 2019-05-28 13:57 | disposition home or self-care (01) | DRG 916 ==
LOC: ER 13:12 → 1 WEST ICU 14:07
PROVIDERS: ADMIT Family Medicine; ATTEND Family Medicine
PROC: 30233K1 Transfusion of Nonautologous Frozen Plasma into Peripheral Vein, Percutaneous Approach (ICD-10-PCS; principal; 2019-05-27)
DX: T78.3XXA Angioneurotic edema, initial encounter (principal); Z68.41 Body mass index [BMI] 40.0-44.9, adult; E78.00 Pure hypercholesterolemia, unspecified; I11.0 Hypertensive heart disease with heart failure; F32.9 Major depressive disorder, single episode, unspecified; G62.9 Polyneuropathy, unspecified; Z96.659 Presence of unspecified artificial knee joint; I50.9 Heart failure, unspecified; I16.0 Hypertensive urgency; Z95.1 Presence of aortocoronary bypass graft; Z90.49 Acquired absence of other specified parts of digestive tract; E66.01 Morbid (severe) obesity due to excess calories; T78.1XXA Other adverse food reactions, not elsewhere classified, initial encounter
CPT/HCPCS: 36415; 36430; 71045; 80053; 80307; 81001; 83880; 85025; 85610; 86850; 86900; 86901; 86927; 87040; 87086; 87205; 96374; 96375; J0360; J1170; J1200; J1650; J2930; J3490; P9017; Q0163; 99291-25; G0378

== ENCOUNTER 2019-06-23 14:09 | Emergency (ER) | payer OTHER, MEDICAID ==
[~2019-06-23] VITALS: Ht 157.5 cm; Wt 102.1 kg
[~2019-06-23 14:09] MED LIST changes: +POTA20TA4 PO; -POTA20TA82 PO
[2019-06-23 15:20] LABS: BASO % 0 % (0-3); EOS % 0 % (0-3); HEMATOCRIT 41.2 % (36.0-47.0); HEMOGLOBIN 14.1 g/dL (12.0-15.5); LYMPH # 1.6 x10^3/uL (1.0-4.8); LYMPH % 27 % (24-48); MEAN CORPUSCULAR HEMOGLOBIN 31 pg (25-35); MEAN CORPUSCULAR HGB CONC 34 g/dL (31-37); MEAN CORPUSCULAR VOLUME 90 fL (79-100); MONO # 0.7 x10^3/uL (0.0-1.1); MONO % 12 % (0-9); NEUT # 3.6 x10^3/uL (1.8-7.7); NEUT % 61 % (31-73); PLATELET COUNT 258 x10^3/uL (140-400); RED BLOOD COUNT 4.58 x10^6/uL (3.50-5.40); RED CELL DISTRIBUTION WIDTH 14.1 % (11.5-14.5)
[2019-06-23 15:32] LABS: CALCIUM 8.5 mg/dL (8.5-10.1); CREATININE 1.1 mg/dL (0.6-1.0); POTASSIUM 3.8 mmol/L (3.5-5.1)
--- NOTE | 2019-06-23 15:36 | RAD ---
LEFT LEG VENOUS DOPPLER STUDY: Clinical indications: Left leg swelling and pain. Findings: Duplex sonography (including pretty scale evaluation and color flow and waveform spectral analysis) of the proximal aspect of the greater saphenous vein and the proximal aspect of the profunda femoral vein and the entire length of the common femoral and superficial femoral and popliteal veins and the tibioperoneal trunk and the proximal aspect of the posterior tibial and peroneal veins of the left leg was performed. Normal compressibility, augmentation of color Doppler flow after calf compression, and respiratory variation of Doppler flow is seen. Thus, there are no sonographic findings of deep venous thrombosis within these veins. Impression: There are no sonographic findings of deep venous thrombosis within the veins discussed above of the left lower extremity. Electronically signed by: Ricardo Frank MD (06/23/2019 3:33 PM) [facility]
[2019-06-23 15:42] VITALS: BP 147/68
[2019-06-23 15:45] LABS: ALBUMIN 3.5 g/dL (3.4-5.0); TOTAL BILIRUBIN 0.4 mg/dL (0.2-1.0)
--- NOTE | 2019-06-23 16:04 | PHYS DOC ---
Past Medical History Past Medical History: Depression, High Cholesterol, Hypertension, Renal Failure, Other Additional Past Medical Histor: neuropathy,CELLULITIS Past Surgical History: Cholecystectomy, Coronary Bypass Surgery, Knee Replacement, Other Additional Past Surgical Histo: esophageal repair Alcohol Use: None Drug Use: None Adult General Chief Complaint Chief Complaint: LOWER EXTREMITY SWELLING [facility] HPI Patient is a 73 year old female, accompanied by her daughter, unsteady emergency department with complaints of lower left leg swelling, redness, and pain for the last week. Patient was prescribed some doxycycline on 06/16/19 and then another antibiotic last week. Patient states she has been taking the medications as prescribed but reports that her primary care Dr. Jimenes wanted her to go to the emergency room to make sure she did not have a blood clot. Patient denies any recent travel, injury, or decreased mobility. Reports that the redness has gone down significantly since she started the second antibiotic. The patient denies any fever, numbness, tingling, or weakness of the extremity. She just complains of a constant pain in her lower left leg that she currently rates a 6 out of 10 on the pain scale she denies any alleviating or exacerbating factors. Review of Systems Review of Systems Constitutional: Denies fever or chills [] Eyes: Denies change in visual acuity, redness, or eye pain [] HENT: Denies nasal congestion or sore throat [] Respiratory: Denies cough or shortness of breath [] Cardiovascular: No additional information not addressed in HPI [] GI: Denies abdominal pain, nausea, vomiting, or diarrhea [] : Denies dysuria or hematuria [] Musculoskeletal: Denies back pain or joint pain, see HPI Integument: See HPI Neurologic: Denies headache, focal weakness or sensory changes [] Complete systems were reviewed and found to be within normal limits, except as documented in this note. Allergies Allergies Allergies Coded Allergies Type Severity Reaction Last Updated Verified No Known Drug Allergies 03/07/19 No Physical Exam Physical Exam Constitutional: Well developed, well nourished, no acute distress, non-toxic appearance. [] HENT: Normocephalic, atraumatic, bilateral external ears normal, oropharynx moist, no oral exudates, nose normal. [] Eyes: PERRLA, EOMI, conjunctiva normal, no discharge. [] Neck: Normal range of motion, no tenderness, supple, no stridor. [] Cardiovascular:Heart rate regular rhythm, no murmur [] Lungs & Thorax: Bilateral breath sounds clear to auscultation [] Abdomen: Bowel sounds normal, soft, no tenderness, no masses, no pulsatile masses. [] Skin: Warm, dry, no erythema, no rash. [] Back: No tenderness, no CVA tenderness. [] Extremities: No tenderness, no cyanosis, no clubbing, ROM intact, no edema. [] Neurologic: Alert and oriented X 3, normal motor function, normal sensory function, no focal deficits noted. [] Psychologic: Affect normal, judgement normal, mood normal. [] Current Patient Data Vital Signs Vital Signs Date Time Temp Pulse Resp B/P (MAP) Pulse Ox O2 Delivery O2 Flow Rate FiO2 06/23/19 15:42 66 19 147/68 (94) 97 Room Air 06/23/19 14:21 97.4 97.4 Lab Values Laboratory Tests Test 06/23/19 15:00 White Blood Count 6.0 x10^3/uL (4.0-11.0) Red Blood Count 4.58 x10^6/uL (3.50-5.40) Hemoglobin 14.1 g/dL (12.0-15.5) Hematocrit 41.2 % (36.0-47.0) Mean Corpuscular Volume 90 fL (79-100) Mean Corpuscular Hemoglobin 31 pg (25-35) Mean Corpuscular Hemoglobin Concent 34 g/dL (31-37) Red Cell Distribution Width 14.1 % (11.5-14.5) Platelet Count 258 x10^3/uL (140-400) Neutrophils (%) (Auto) 61 % (31-73) Lymphocytes (%) (Auto) 27 % (24-48) Monocytes (%) (Auto) 12 % (0-9) H Eosinophils (%) (Auto) 0 % (0-3) Basophils (%) (Auto) 0 % (0-3) Neutrophils # (Auto) 3.6 x10^3/uL (1.8-7.7) Lymphocytes # (Auto) 1.6 x10^3/uL (1.0-4.8) Monocytes # (Auto) 0.7 x10^3/uL (0.0-1.1) Eosinophils # (Auto) 0.0 x10^3/uL (0.0-0.7) Basophils # (Auto) 0.0 x10^3/uL (0.0-0.2) Sodium Level 142 mmol/L (136-145) Potassium Level 3.8 mmol/L (3.5-5.1) Chloride Level 105 mmol/L (98-107) Carbon Dioxide Level 33 mmol/L (21-32) H Anion Gap 4 (6-14) L Blood Urea Nitrogen 15 mg/dL (7-20) Creatinine 1.1 mg/dL (0.6-1.0) H Estimated GFR (Cockcroft-Gault) 49.0 BUN/Creatinine Ratio 14 (6-20) Glucose Level 97 mg/dL (70-99) Lactic Acid Level 0.7 mmol/L (0.4-2.0) Calcium Level 8.5 mg/dL (8.5-10.1) Total Bilirubin 0.4 mg/dL (0.2-1.0) Aspartate Amino Transferase (AST) 22 U/L (15-37) Alanine Aminotransferase (ALT) 27 U/L (14-59) Alkaline Phosphatase 110 U/L (46-116) Total Protein 7.0 g/dL (6.4-8.2) Albumin 3.5 g/dL (3.4-5.0) Albumin/Globulin Ratio 1.0 (1.0-1.7) Laboratory Tests 06/23/19 15:00 Laboratory Tests 06/23/19 15:00 EKG EKG [] Radiology/Procedures Radiology/Procedures PROCEDURE: VENOUS LOWER EXTREMITY LEFT LEFT LEG VENOUS DOPPLER STUDY: Clinical indications: Left leg swelling and pain. Findings: Duplex sonography (including pretty scale evaluation and color flow and waveform spectral analysis) of the proximal aspect of the greater saphenous vein and the proximal aspect of the profunda femoral vein and the entire length of the common femoral and superficial femoral and popliteal veins and the tibioperoneal trunk and the proximal aspect of the posterior tibial and peroneal veins of the left leg was performed. Normal compressibility, augmentation of color Doppler flow after calf compression, and respiratory variation of Doppler flow is seen. Thus, there are no sonographic findings of deep venous thrombosis within these veins. Impression: There are no sonographic findings of deep venous thrombosis within the veins discussed above of the left lower extremity. [] Course & Med Decision Making Course & Med Decision Making Pertinent Labs and Imaging studies reviewed. (See chart for details) Patient is a 73-year-old female who presents to the emergency room with complaints of continued redness, pain, and swelling in the lower left leg after taking antibiotics since June 16, 2019 for cellulitis. The patient reported that the redness has gone down considerably, reported concerns of a blood clot with persistent pain and swelling of the affected extremity. CBC was unremarkable, CMP revealed a creatinine of 1.1, was otherwise unremarkable, lactic acid was negative Ultrasound of the patient's lower left extremity was negative for any DVT. The patient's vital signs were stable throughout her emergency room visit The patient and her daughter were instructed to continue taking the medication as prescribed by Dr. Jimenes. Recommend elevation of your leg as much as possible, may apply warm, moist heat to the painful area as needed for comfort. Follow up with Dr. Jimenes next week, return to the ER if your symptoms worsen. Patient verbalized an understanding of home care, medications, follow-up, and return to ED instructions and was in agreement with the plan of care. Dragon Disclaimer Dragon Disclaimer This electronic medical record was generated, in whole or in part, using a voice recognition dictation system. Departure Departure Impression: Primary Impression: Left leg swelling Disposition: 01 HOME, SELF-CARE Condition: STABLE Referrals: TERRY HICKMAN MD (PCP) Patient Instructions: Edema, [id number] Additional Instructions: Continue taking the medication as prescribed by Dr. Jimenes. Recommend elevation of your leg as much as possible, may apply warm, moist heat to the painful area as needed for comfort. Follow up with Dr. Jimenes next week, return to the ER if your symptoms worsen. FANTA JONES APRN Jun 23, 2019 16:04
== END 2019-06-23 16:06 | disposition home or self-care (01) ==
LOC: ER 14:09
DX: R22.42 Localized swelling, mass and lump, left lower limb (principal); M79.605 Pain in left leg; F32.9 Major depressive disorder, single episode, unspecified; E78.00 Pure hypercholesterolemia, unspecified; I12.9 Hypertensive chronic kidney disease with stage 1 through stage 4 chronic kidney disease, or unspecified chronic kidney disease; N18.9 Chronic kidney disease, unspecified; Z95.1 Presence of aortocoronary bypass graft
CPT/HCPCS: 36415; 80053; 83605; 85025; 93971; 99285

== ENCOUNTER 2019-09-25 19:26 | Inpatient (IN) | payer OTHER, MEDICAID ==
[~2019-09-25] VITALS: Ht 157.5 cm; Wt 108.5 kg
[~2019-09-25 19:26] MED LIST changes: +TRAZ-123 PO; -TRAZ-86 PO
[2019-09-25 20:21] LABS: BASO % 0 % (0-3); EOS % 0 % (0-3); HEMATOCRIT 41.3 % (36.0-47.0); LYMPH # 1.8 x10^3/uL (1.0-4.8); LYMPH % 28 % (24-48); MEAN CORPUSCULAR HEMOGLOBIN 31 pg (25-35); MEAN CORPUSCULAR HGB CONC 34 g/dL (31-37); MEAN CORPUSCULAR VOLUME 91 fL (79-100); MONO # 0.9 x10^3/uL (0.0-1.1); MONO % 14 % (0-9); NEUT # 3.6 x10^3/uL (1.8-7.7); NEUT % 58 % (31-73); PLATELET COUNT 233 x10^3/uL (140-400); RED BLOOD COUNT 4.53 x10^6/uL (3.50-5.40); RED CELL DISTRIBUTION WIDTH 14.5 % (11.5-14.5); WHITE BLOOD COUNT 6.3 x10^3/uL (4.0-11.0)
[2019-09-25 20:28] LABS: CALCIUM 8.5 mg/dL (8.5-10.1); CREATININE 1.3 mg/dL (0.6-1.0); GFR 40.4; POTASSIUM 3.5 mmol/L (3.5-5.1); PROTHROMBIN TIME PATIENT 13.4 SEC (11.7-14.0)
[2019-09-25 20:34] LABS: ALBUMIN 3.5 g/dL (3.4-5.0); ALBUMIN/GLOBULIN RATIO 1.1 (1.0-1.7); MAGNESIUM 1.7 mg/dL (1.8-2.4); TOTAL BILIRUBIN 0.5 mg/dL (0.2-1.0); TOTAL PROTEIN 6.8 g/dL (6.4-8.2)
--- NOTE | 2019-09-25 20:34 | PHYS DOC ---
Past Medical History Past Medical History: Depression, High Cholesterol, Hypertension, Renal Failure, Other Additional Past Medical Histor: neuropathy,CELLULITIS Past Surgical History: Cholecystectomy, Coronary Bypass Surgery, Knee Replacement, Other Additional Past Surgical Histo: esophageal repair Smoking Status: Former Smoker Alcohol Use: None Drug Use: None Adult General Chief Complaint Chief Complaint: CHEST PAIN HPI HPI Patient is a 73 year old female past medical history hypertension hyperlipidemia CHF coronary artery disease presents with a chief complaint of chest pain. Onset of chest pain one hour prior to arrival. Patient states she w as walking down the [place] when she suddenly had 5 out of 5 dull pressure in her left chest. Onset of this pain patient collapsed to the ground. Patient denies any LOC.Patient states she had associated shortness of breath and dizziness. She denied any nausea or vomiting. Pain completely resolved with nitroglycerin. Patient currently denies any pain. Review of Systems Review of Systems Review of systems: Constitutional symptoms- No fever, no chills. Eyes- No Discharge, No Visual Loss, Respiratory symptoms-positive shortness of breath, No wheezing, No Dyspnea on Exertion Cardiovascular Systems; positive chest pain.No Palpitations, No syncope positive leg edema Gastrointestinal symptoms: NO abdominal pain, no nausea, no vomiting or diarrhe a. Genitourinary symptoms: No dysuria. No vaginal bleeding. Musculoskeletal symptoms: No back pain or extremity pain. Positive left extremity pain NEUROLOGICAL Symptoms: No headache, no generalized weakness; No focal Weakness, positive dizziness Current Medications Current Medications Current Medications Medications (Trade) Dose Ordered Sig/Carmelo Start Time Stop Time Status Last Admin Dose Admin Acetaminophen (Tylenol) 650 mg PRN Q4HRS PRN 09/25/19 21:45 Albuterol Sulfate (Ventolin Neb Soln) 2.5 mg PRN Q4HRS PRN 09/25/19 21:45 Amlodipine Besylate (Norvasc) 10 mg DAILY 09/26/19 09:00 UNV Aspirin (Children'S Aspirin) 81 mg DAILYWBKFT 09/26/19 08:00 Docusate Sodium (Colace) 100 mg PRN BID PRN 09/25/19 21:45 Enoxaparin Sodium (Lovenox 40mg Syringe) 40 mg Q24H 09/25/19 22:00 Furosemide (Lasix) 40 mg DAILY 09/26/19 09:00 Guaifenesin (Robitussin) 200 mg PRN Q4HRS PRN 09/25/19 21:45 Lorazepam (Ativan) 0.5 mg PRN Q4HRS PRN 09/25/19 21:45 Non-Formulary Medication (Carvedilol ) 12.5 mg BIDWMEALS 09/26/19 08:00 UNV Non-Formulary Medication (Fluoxetine Hcl ) 40 mg DAILY 09/26/19 09:00 UNV Non-Formulary Medication (Gabapentin ) 300 mg BID 09/26/19 09:00 UNV Non-Formulary Medication (Multivitamin (Multi Vitamin Daily)) 1 tab DAILY 09/26/19 09:00 UNV Non-Formulary Medication ([terozosin] ) 1 mg HS 09/26/19 21:00 UNV Ondansetron HCl (Zofran) 4 mg PRN Q4HRS PRN 09/25/19 21:45 Pantoprazole Sodium (Protonix) 40 mg DAILYAC 09/26/19 07:30 Potassium Chloride (Klor-Con) 20 meq DAILYWBKFT 09/26/19 08:00 Simvastatin (Zocor) 20 mg HS 09/26/19 21:00 UNV Tramadol HCl (Ultram) 50 mg PRN Q6HRS PRN 09/25/19 21:45 Trazodone HCl (Desyrel) 100 mg HS 09/26/19 21:00 UNV Zolpidem Tartrate (Ambien) 5 mg PRN QHS PRN 09/25/19 21:45 UNV Allergies Allergies Allergies Coded Allergies Type Severity Reaction Last Updated Verified No Known Drug Allergies 03/07/19 No Physical Exam Physical Exam General: alert, no acute distress. Skin: warm, dry and intact. Head:: Normocephalic, atraumatic. Neck; Supple. Trachea midline. Eyes: pupils equal, round, reactive to light accommodation. CARDIOVASCULAR: Regular rate and rhythm. RESPIRATORY: No respiratory distress. Back: Full range of motion. MUSCULOSKELETAL: Full range of motion of bilateral upper and lower extremities. Pain with range of motion left upper extremity. Bilateral lower extremity pitting edema GASTROINTESTINAL: ABD soft without rebound or guarding. NEUROLOGICAL: Alert and noted to person, place and time. No neurological deficits observed. Psychiatric: Cooperative. Normal judgment Current Patient Data Vital Signs Vital Signs Date Time Temp Pulse Resp B/P (MAP) Pulse Ox O2 Delivery O2 Flow Rate FiO2 09/25/19 21:07 80 18 154/63 (93) 94 Room Air 09/25/19 19:26 98.3 98.3 Lab Values Laboratory Tests Test 09/25/19 19:35 White Blood Count 6.3 x10^3/uL (4.0-11.0) Red Blood Count 4.53 x10^6/uL (3.50-5.40) Hemoglobin 14.0 g/dL (12.0-15.5) Hematocrit 41.3 % (36.0-47.0) Mean Corpuscular Volume 91 fL (79-100) Mean Corpuscular Hemoglobin 31 pg (25-35) Mean Corpuscular Hemoglobin Concent 34 g/dL (31-37) Red Cell Distribution Width 14.5 % (11.5-14.5) Platelet Count 233 x10^3/uL (140-400) Neutrophils (%) (Auto) 58 % (31-73) Lymphocytes (%) (Auto) 28 % (24-48) Monocytes (%) (Auto) 14 % (0-9) H Eosinophils (%) (Auto) 0 % (0-3) Basophils (%) (Auto) 0 % (0-3) Neutrophils # (Auto) 3.6 x10^3/uL (1.8-7.7) Lymphocytes # (Auto) 1.8 x10^3/uL (1.0-4.8) Monocytes # (Auto) 0.9 x10^3/uL (0.0-1.1) Eosinophils # (Auto) 0.0 x10^3/uL (0.0-0.7) Basophils # (Auto) 0.0 x10^3/uL (0.0-0.2) Prothrombin Time 13.4 SEC (11.7-14.0) Prothrombin Time INR 1.1 (0.8-1.1) Sodium Level 144 mmol/L (136-145) Potassium Level 3.5 mmol/L (3.5-5.1) Chloride Level 105 mmol/L (98-107) Carbon Dioxide Level 30 mmol/L (21-32) Anion Gap 9 (6-14) Blood Urea Nitrogen 19 mg/dL (7-20) Creatinine 1.3 mg/dL (0.6-1.0) H Estimated GFR (Cockcroft-Gault) 40.4 BUN/Creatinine Ratio 15 (6-20) Glucose Level 101 mg/dL (70-99) H Calcium Level 8.5 mg/dL (8.5-10.1) Magnesium Level 1.7 mg/dL (1.8-2.4) L Total Bilirubin 0.5 mg/dL (0.2-1.0) Aspartate Amino Transferase (AST) 17 U/L (15-37) Alanine Aminotransferase (ALT) 18 U/L (14-59) Alkaline Phosphatase 105 U/L (46-116) Creatine Kinase 55 U/L (26-192) Creatine Kinase MB (Mass) 0.5 ng/mL (0.0-3.6) Creatine Kinase MB Relative Index % (0-4) Troponin I Quantitative < 0.017 ng/mL (0.000-0.055) DN-[id number]-Type Natriuretic Peptide 387 pg/mL (0-124) H Total Protein 6.8 g/dL (6.4-8.2) Albumin 3.5 g/dL (3.4-5.0) Albumin/Globulin Ratio 1.1 (1.0-1.7) Laboratory Tests 09/25/19 19:35 Laboratory Tests 09/25/19 19:35 EKG EKG [] Interpretation Time: EKG performed at 1930 Heart rate [address] elevation no ST depression no acute [place] no acute change when compared to previous EKG performed on 03/07/2019 Radiology/Procedures Radiology/Procedures [] Course & Med Decision Making Course & Med Decision Making Pertinent Labs and Imaging studies reviewed. (See chart for details) []Patient was evaluated for chief complaint. Workup consisted of laboratory analysis radiologic imaging and EKG. Results reviewed and discussed with patient. No acute lab normalities. Patient admitted to the hospitalist for further evaluation and treatment. Dragon Disclaimer Dragon Disclaimer This electronic medical record was generated, in whole or in part, using a voice recognition dictation system. Departure Departure Referrals: TERRY HICKMAN MD (PCP) GURJIT CHANEL DO Sep 25, 2019 20:34
[2019-09-25 20:45] LABS: CREATINE KINASE 55 U/L (26-192)
--- NOTE | 2019-09-25 21:04 | RAD ---
EXAM: AP View of the chest DATE: 09/25/2019 8:13 PM INDICATION: Chest pain COMPARISON: 05/27/2019 FINDINGS: The heart is not enlarged. Mediastinal and hilar contours are stable. Patchy opacities medial right lung base likely atelectasis. No pleural effusion or pneumothorax. AC joint degenerative changes are seen. IMPRESSION: 1. Patchy opacities medial right lung base likely atelectasis. Electronically signed by: Anuel Momin MD (09/25/2019 9:01 PM) [id number]
[2019-09-25] MEDS ORDERED: LORazepam 0.5 MG TABLET PO PRN (21:45)
[2019-09-25] MEDS ORDERED: ZOLPIDEM 5 MG TABLET. PO PRN (21:45)
[2019-09-25] MEDS ORDERED: guaiFENesin ORAL 200 MG/10 ML LIQUID. PO PRN (21:45)
[2019-09-25] MEDS ORDERED: ONDANSETRON PF 4 MG/2 ML VIAL. IV PRN ×2 (21:45→22:00)
[2019-09-25] MEDS ORDERED: ALBUTEROL SULFATE 2.5 MG/3 ML NEBU. NEB PRN (21:45)
[2019-09-25] MEDS ORDERED: DOCUSATE SODIUM 100 MG CAPSULE. PO PRN (21:45)
[2019-09-25] MEDS ORDERED: ACETAMINOPHEN 325 MG TABLET. PO PRN (21:45)
[2019-09-25] MEDS ORDERED: FUROSEMIDE 40 MG/4 ML VIAL. IVP ONE (22:00)
--- NOTE | 2019-09-25 23:00 | PDOC1 ---
History and Physical Date of Admission Date of Admission 09/25/2019 Identification/Chief Complaint Chief Complaint My chest hurts Source Source: Caregiver, Chart review, Patient History of Present Illness History of Present Illness Patient is a 73-year-old female with multiple comorbidities including morbid obesity who was in her usual state of health until approximately 6 days prior to her admission. The patient apparently was diagnosed with left leg cellulitis and she was started on doxycycline at that time. The patient was walking down the [place] and she felt chest discomfort that she is unable to describe. Patient is quite a bad historian. She is unable to provide me much details and her daughter also keeps climbing into the conversation in pretty much expressing for the patient but she seemed to observe earlier in the day. Patient was given nitroglycerin by her daughter which seemed to joe the symptoms of chest discomfort that she describes as a sharp sensation after much questioning. She also had associated dizziness that she describes as a lightheadedness. The patient denies loss of consciousness the discomfort lasted less than 20 minutes since the patient was given the nitroglycerin quite promptly. The patient at the time of my evaluation is chest pain-free. Her initial work- up in the emergency department failed to reveal acute ischemic changes in her EKG nor troponin elevation. The pain is certainly reproducible she denies cough sputum production no pleurisy no fever or chills. She denies sensation of impending doom and no diaphoresis. Will admit the patient for further cardiac work-up ER history as follows: [facility] ED GENERAL TEMPLATE Patient Name: Kayla Machado Unit Number: [id number] Date of : 1945 Patient Status: Registered Emergency Room Attending Doctor: Nirav Katz DO Past Medical History Past Medical History: Depression, High Cholesterol, Hypertension, Renal Failure, Other Additional Past Medical Histor: neuropathy,CELLULITIS Past Surgical History: Cholecystectomy, Coronary Bypass Surgery, Knee Replacement, Other Additional Past Surgical Histo: esophageal repair Smoking Status: Former Smoker Alcohol Use: None Drug Use: None Adult General Chief Complaint Chief Complaint: CHEST PAIN HPI HPI Patient is a 73 year old female past medical history hypertension hyperlipidemia CHF coronary artery disease presents with a chief complaint of chest pain. Onset of chest pain one hour prior to arrival. Patient states she was walking down the [place] when she suddenly had 5 out of 5 dull pressure in her left chest. Onset of this pain patient collapsed to the ground. Patient denies any LOC.Patient states she had associated shortness of breath and dizziness. She denied any nausea or vomiting. Pain completely resolved with nitroglycerin. Patient currently denies any pain. Past Medical History Cardiovascular: CAD Family History Family History: High Cholestrol Social History ALCOHOL: none Drugs: None Current Medications Current Medications Current Medications Medications (Trade) Dose Ordered Sig/Carmelo Start Time Stop Time Status Last Admin Dose Admin Acetaminophen (Tylenol) 650 mg PRN Q4HRS PRN 09/25/19 21:45 Albuterol Sulfate (Ventolin Neb Soln) 2.5 mg PRN Q4HRS PRN 09/25/19 21:45 Amlodipine Besylate (Norvasc) 10 mg DAILY 09/26/19 09:00 Aspirin (Children'S Aspirin) 81 mg DAILYWBKFT 09/26/19 08:00 Carvedilol (Coreg) 12.5 mg BIDWMEALS 09/26/19 08:00 Docusate Sodium (Colace) 100 mg PRN BID PRN 09/25/19 21:45 Enoxaparin Sodium (Lovenox 40mg Syringe) 40 mg Q24H 09/25/19 22:00 Fluoxetine HCl (PROzac) 40 mg DAILY 09/26/19 09:00 Furosemide (Lasix) 40 mg 1X ONCE 09/25/19 22:00 09/25/19 22:01 DC Gabapentin (Neurontin) 300 mg BID 09/25/19 22:45 Guaifenesin (Robitussin) 200 mg PRN Q4HRS PRN 09/25/19 21:45 Lorazepam (Ativan) 0.5 mg PRN Q4HRS PRN 09/25/19 21:45 Ondansetron HCl (Zofran) 4 mg PRN Q8HRS PRN 09/25/19 22:00 09/26/19 21:59 Pantoprazole Sodium (Protonix) 40 mg DAILYAC 09/26/19 07:30 Potassium Chloride (Klor-Con) 20 meq DAILYWBKFT 09/26/19 08:00 Multivit/ Folic Acid/Iron (Multivitamin ) 1 tab DAILY 09/26/19 09:00 Simvastatin (Zocor) 20 mg HS 3/9/20 22:45 Terazosin HCl (Hytrin) 1 mg HS 09/25/19 22:45 Tramadol HCl (Ultram) 50 mg PRN Q6HRS PRN 09/25/19 21:45 Trazodone HCl (Desyrel) 100 mg HS 09/25/19 22:45 Zolpidem Tartrate (Ambien) 5 mg PRN QHS PRN 09/25/19 21:45 Allergies Allergies Allergies Coded Allergies Type Severity Reaction Last Updated Verified No Known Drug Allergies 03/07/19 No ROS Review of System CONSTITUTIONAL: No fever or chills EYES: No recent changes SKIN: No rash or itching CARDIOVASCULAR: No chest pain, syncope, palpitations, or edema RESPIRATORY: No SOB or cough GASTROINTESTINAL: No nausea, vomiting or abdominal pain NEUROLOGICAL: No headaches or weakness ENDOCRINE: No cold or heat intolerance GENITOURINARY: No urgency or frequency of urination MUSCULOSKELETAL: No back pain or joint pain LYMPHATICS: No enlarged lymph nodes PSYCHIATRIC: No anxiety or depression Physical Exam Physical Exam Gen.: well-developed well-nourished in no apparent distress Head: Normal shape atraumatic Eyes: Pupils equal reactive to light and accommodation, normal conjunctivae and lids Ears: Normal shape Nose: Normal shape no trauma Mouth: No exudates of the back of throat no thrush no lesions Neck: Supple no JVD no carotid bruit or lymphadenopathy no thyromegaly Chest: Lungs clear to auscultation with good inspiratory effort no crackles rales or rhonchi Cardiovascular: S1-S2 regular rhythm no murmurs gallops or rubs Abdomen: Bowel sounds present soft nontender no hepatosplenomegaly appreciated sign Extremities: No clubbing no cyanosis 2+edema peripheral pulses palpated bilaterally Neurological: Alert awake oriented in person time place and situation, cranial nerves II through XII intact, no motor or sensory deficits appreciated Psych: Appropriate mood, cooperative Vitals Vitals Vital Signs Date Time Temp Pulse Resp B/P (MAP) Pulse Ox O2 Delivery O2 Flow Rate FiO2 09/25/19 21:59 74 18 159/75 (103) 94 Room Air 09/25/19 19:26 98.3 98.3 Labs Labs Laboratory Tests Test 09/25/19 19:35 White Blood Count 6.3 x10^3/uL (4.0-11.0) Red Blood Count 4.53 x10^6/uL (3.50-5.40) Hemoglobin 14.0 g/dL (12.0-15.5) Hematocrit 41.3 % (36.0-47.0) Mean Corpuscular Volume 91 fL (79-100) Mean Corpuscular Hemoglobin 31 pg (25-35) Mean Corpuscular Hemoglobin Concent 34 g/dL (31-37) Red Cell Distribution Width 14.5 % (11.5-14.5) Platelet Count 233 x10^3/uL (140-400) Neutrophils (%) (Auto) 58 % (31-73) Lymphocytes (%) (Auto) 28 % (24-48) Monocytes (%) (Auto) 14 % (0-9) Eosinophils (%) (Auto) 0 % (0-3) Basophils (%) (Auto) 0 % (0-3) Neutrophils # (Auto) 3.6 x10^3/uL (1.8-7.7) Lymphocytes # (Auto) 1.8 x10^3/uL (1.0-4.8) Monocytes # (Auto) 0.9 x10^3/uL (0.0-1.1) Eosinophils # (Auto) 0.0 x10^3/uL (0.0-0.7) Basophils # (Auto) 0.0 x10^3/uL (0.0-0.2) Prothrombin Time 13.4 SEC (11.7-14.0) Prothromb Time International Ratio 1.1 (0.8-1.1) Sodium Level 144 mmol/L (136-145) Potassium Level 3.5 mmol/L (3.5-5.1) Chloride Level 105 mmol/L (98-107) Carbon Dioxide Level 30 mmol/L (21-32) Anion Gap 9 (6-14) Blood Urea Nitrogen 19 mg/dL (7-20) Creatinine 1.3 mg/dL (0.6-1.0) Estimated GFR (Cockcroft-Gault) 40.4 BUN/Creatinine Ratio 15 (6-20) Glucose Level 101 mg/dL (70-99) Calcium Level 8.5 mg/dL (8.5-10.1) Magnesium Level 1.7 mg/dL (1.8-2.4) Total Bilirubin 0.5 mg/dL (0.2-1.0) Aspartate Amino Transf (AST/SGOT) 17 U/L (15-37) Alanine Aminotransferase (ALT/SGPT) 18 U/L (14-59) Alkaline Phosphatase 105 U/L (46-116) Creatine Kinase 55 U/L (26-192) Creatine Kinase MB (Mass) 0.5 ng/mL (0.0-3.6) Creatine Kinase MB Relative Index % (0-4) Troponin I Quantitative < 0.017 ng/mL (0.000-0.055) BP-Asf-E-Type Natriuretic Peptide 387 pg/mL (0-124) Total Protein 6.8 g/dL (6.4-8.2) Albumin 3.5 g/dL (3.4-5.0) Albumin/Globulin Ratio 1.1 (1.0-1.7) Laboratory Tests Test 09/25/19 19:35 White Blood Count 6.3 x10^3/uL (4.0-11.0) Red Blood Count 4.53 x10^6/uL (3.50-5.40) Hemoglobin 14.0 g/dL (12.0-15.5) Hematocrit 41.3 % (36.0-47.0) Mean Corpuscular Volume 91 fL (79-100) Mean Corpuscular Hemoglobin 31 pg (25-35) Mean Corpuscular Hemoglobin Concent 34 g/dL (31-37) Red Cell Distribution Width 14.5 % (11.5-14.5) Platelet Count 233 x10^3/uL (140-400) Neutrophils (%) (Auto) 58 % (31-73) Lymphocytes (%) (Auto) 28 % (24-48) Monocytes (%) (Auto) 14 % (0-9) Eosinophils (%) (Auto) 0 % (0-3) Basophils (%) (Auto) 0 % (0-3) Neutrophils # (Auto) 3.6 x10^3/uL (1.8-7.7) Lymphocytes # (Auto) 1.8 x10^3/uL (1.0-4.8) Monocytes # (Auto) 0.9 x10^3/uL (0.0-1.1) Eosinophils # (Auto) 0.0 x10^3/uL (0.0-0.7) Basophils # (Auto) 0.0 x10^3/uL (0.0-0.2) Prothrombin Time 13.4 SEC (11.7-14.0) Prothromb Time International Ratio 1.1 (0.8-1.1) Sodium Level 144 mmol/L (136-145) Potassium Level 3.5 mmol/L (3.5-5.1) Chloride Level 105 mmol/L (98-107) Carbon Dioxide Level 30 mmol/L (21-32) Anion Gap 9 (6-14) Blood Urea Nitrogen 19 mg/dL (7-20) Creatinine 1.3 mg/dL (0.6-1.0) Estimated GFR (Cockcroft-Gault) 40.4 BUN/Creatinine Ratio 15 (6-20) Glucose Level 101 mg/dL (70-99) Calcium Level 8.5 mg/dL (8.5-10.1) Magnesium Level 1.7 mg/dL (1.8-2.4) Total Bilirubin 0.5 mg/dL (0.2-1.0) Aspartate Amino Transf (AST/SGOT) 17 U/L (15-37) Alanine Aminotransferase (ALT/SGPT) 18 U/L (14-59) Alkaline Phosphatase 105 U/L (46-116) Creatine Kinase 55 U/L (26-192) Creatine Kinase MB (Mass) 0.5 ng/mL (0.0-3.6) Creatine Kinase MB Relative Index % (0-4) Troponin I Quantitative < 0.017 ng/mL (0.000-0.055) ZN-Blm-E-Type Natriuretic Peptide 387 pg/mL (0-124) Total Protein 6.8 g/dL (6.4-8.2) Albumin 3.5 g/dL (3.4-5.0) Albumin/Globulin Ratio 1.1 (1.0-1.7) VTE Prophylaxis Ordered VTE Prophylaxis Devices: No VTE Pharmacological Prophylaxi: Yes Assessment/Plan Assessment/Plan Atypical chest pain History of coronary artery disease Morbid obesity with BMI of 44 History of coronary artery disease status post CABG Dyslipidemia CKD stage III Plan Admit the patient for serial cardiac enzymes Consult cardiology Symptomatic relief of symptoms Resume home medications once available for review Further recommendations based on the clinical course DVT prophylaxis Heparin GALINA PATINO MD Sep 25, 2019 23:00
[2019-09-25 23:01] VITALS: BP 175/79
[2019-09-25] MEDS: TERAZOSIN 1 MG CAPSULE. PO SCH (23:48)
[2019-09-25] MEDS: ENOXAPARIN 40 MG/0.4 ML SYRINGE. SQ SCH (23:49)
[2019-09-25] MEDS: SIMVASTATIN 20 MG TABLET PO SCH (23:49)
[2019-09-25] MEDS: GABAPENTIN 300 MG CAPSULE. PO SCH (23:49)
[2019-09-25] MEDS: traZODone 100 MG TABLET. PO SCH (23:49)
[2019-09-26] MEDS ORDERED: DOXY-96 PO (00:32)
[2019-09-26 03:00] VITALS: BP 140/56
--- NOTE | 2019-09-26 04:27 | EKG ---
[facility] [address] [place] [address] Test Date: 2019-09-25 Test Time: 19:30:32 Pat Name: CRYS SANON Department: Room: Gender: F Corporate Communications Intern: EBONY : 1945 Requested By: GURJIT CHANEL Order Number: [id number] Reading MD: Measurements Intervals [place] Rate: 73 P: 22 NM: 190 QRS: -44 QRSD: 118 T: 3 QT: 434 QTc: 482 Interpretive Statements SINUS RHYTHM ABNORMAL LEFT AXIS DEVIATION R-S TRANSITION ZONE IN V LEADS DISPLACED TO THE RIGHT LEFT ANTERIOR FASCICULAR BLOCK INCOMPLETE RIGHT BUNDLE BRANCH BLOCK QRS(T) CONTOUR ABNORMALITY CONSIDER ANTEROSEPTAL MYOCARDIAL DAMAGE PROLONGED QT ABNORMAL ECG RI6.01 No previous ECG available for comparison
[2019-09-26 07:00] VITALS: BP 151/65
[2019-09-26] MEDS: FUROSEMIDE 40 MG TABLET. PO SCH (08:09)
[2019-09-26] MEDS: amLODIPine BESYLATE 10 MG TABLET PO SCH (08:10)
[2019-09-26] MEDS: GABAPENTIN 300 MG CAPSULE. PO SCH ×2 (08:10→20:51)
[2019-09-26] MEDS: POTASSIUM CHLORIDE 20 MEQ TABLET.ER. PO SCH (08:10)
[2019-09-26] MEDS: PANTOPRAZOLE 40 MG TABLET.DR. PO SCH (08:11)
[2019-09-26] MEDS: CARVEDILOL 12.5 MG TABLET. PO SCH ×2 (08:11→17:25)
[2019-09-26] MEDS: DOXYCYCLINE HYCLATE 100 MG TABLET PO SCH ×2 (08:11→20:50)
[2019-09-26] MEDS: ASPIRIN CHEWABLE 81 MG TABLET. PO SCH (08:11)
[2019-09-26] MEDS: FLUoxetine HCL 20 MG CAPSULE PO SCH (08:12)
[2019-09-26] MEDS: PRENATAL MULTIVITAMIN TABLET. PO SCH (09:08)
--- NOTE | 2019-09-26 10:47 | PDOC2 ---
SAVANA LOPEZ ENGINEER [employer] 09/26/19 1047: CARDIAC CONSULT DATE OF CONSULT Date of Consult DATE: 09/26/19 TIME: 10:02 REASON FOR CONSULT Reason for Consult: Chest pain REFERRING PHYSICIAN Referring Physician: John SOURCE Source: Chart review, Patient HISTORY OF PRESENT ILLNESS HISTORY OF PRESENT ILLNESS This is a pleasant 73 yo female admitted for complains of chest pain. Reports that she was putting her jacket yesterday when she lost her balance and fell on her butt. No associated dizziness or passing out. After that she started having midchest sharp pain and also pain at the posterior base of her neck. She could not described her arm position when she fell but she was not able to raise her arm above her shoulder after her fall. She uses a walker but not using it at that time. Denies any SOA, chest pressure, n/v, no prior falls before this. She has not been feeling fatigue although she does get some chest pain from time to time it is not consistent and no other associated symptoms such as LYNN. Positive for CAD with CABG in the past and [facility] last yr with no intervention. Compliant with her meds. Denies any routine NSAIDs. No GERD symptoms but +factors for ENMA. PAST MEDICAL HISTORY Cardiovascular: CAD, HTN, Hyperlipidemia, Other (angioedema related to sena b eans) Pulmonary: No pertinent hx CENTRAL NERVOUS SYSTEM: Other (No pertinent history) GI: GERD, Other (esophageal tear) Heme/Onc: Anemia NOS ENT: No pertinent hx Renal/: Urinary Incontinence Endocrine: No pertinent hx PAST SURGICAL HISTORY Past Surgical History: CABG (x2 SVG to OM to RCA 2011), Total knee replacement (left), Other ([facility] 01/23/2019 with no intervention at [facility]; esophageal tear repari 2017) FAMILY HISTORY Family History: Coronary Artery Disease (aunt) SOCIAL HISTORY Smoke: Quit ALCOHOL: none Drugs: None Lives: with Family (daughter) CURRENT MEDICATIONS CURRENT MEDICATIONS Current Medications Medications (Trade) Dose Ordered Sig/Carmelo Route PRN Reason Start Time Stop Time Status Last Admin Dose Admin Acetaminophen (Tylenol) 650 mg PRN Q4HRS PRN PO TEMP OVER 100.4F OR MILD PAIN 09/25/19 21:45 09/26/19 08:12 Enoxaparin Sodium (Lovenox 40mg Syringe) 40 mg Q24H SQ 09/25/19 22:00 09/25/19 23:49 Amlodipine Besylate (Norvasc) 10 mg DAILY PO 09/26/19 09:00 09/26/19 08:10 Aspirin (Children'S Aspirin) 81 mg DAILYWBKFT PO 09/26/19 08:00 09/26/19 08:11 Furosemide (Lasix) 40 mg DAILY PO 09/26/19 09:00 09/26/19 08:09 Pantoprazole Sodium (Protonix) 40 mg DAILYAC PO 09/26/19 07:30 09/26/19 08:11 Potassium Chloride (Klor-Con) 20 meq DAILYWBKFT PO 09/26/19 08:00 09/26/19 08:10 Simvastatin (Zocor) 20 mg HS PO 09/25/19 22:45 09/25/19 23:49 Trazodone HCl (Desyrel) 100 mg HS PO 09/25/19 22:45 09/25/19 23:49 Carvedilol (Coreg) 12.5 mg BIDWMEALS PO 09/26/19 08:00 09/26/19 08:11 Fluoxetine HCl (PROzac) 40 mg DAILY PO 09/26/19 09:00 09/26/19 08:12 Gabapentin (Neurontin) 300 mg BID PO 09/25/19 22:45 09/26/19 08:10 Multivit/ Folic Acid/Iron (Multivitamin ) 1 tab DAILY PO 09/26/19 09:00 09/26/19 09:08 Terazosin HCl (Hytrin) 1 mg HS PO 09/25/19 22:45 09/25/19 23:48 Furosemide (Lasix) 40 mg 1X ONCE IVP 09/25/19 22:00 09/25/19 22:01 DC 09/25/19 23:56 Doxycycline Hyclate (Vibra-Tab) 100 mg BID PO 09/26/19 09:00 09/26/19 08:11 ALLERGIES ALLERGIES: Uncoded Allergies: SENA BEANS (Allergy, Unknown, ANAPHYLACTIC, 09/26/19) ROS Review of System 14 point ROS evaluated with pertinent positives noted per HPI PHYSICAL EXAM General: Alert, Oriented X3, Cooperative, No acute distress HEENT: Atraumatic, Mucous membr. moist/pink Lungs: Other (dimnished bases) Heart: Regular rate (SR no ectopies), Normal S1, Normal S2, No murmurs Abdomen: Soft, No tenderness Extremities: No cyanosis, Other (2+ bilateral pitting edema) Skin: No breakdown, No significant lesion Psych/Mental Status: Mental status NL, Mood NL MUSCULOSKELETAL: Osteoarthritic changes both hands, Other (limited ROM to left shoulder) VITALS/I&O VITALS/I&O: Vital Signs Date Time Temp Pulse Resp B/P (MAP) Pulse Ox O2 Delivery O2 Flow Rate FiO2 09/26/19 08:31 93 Room Air 09/26/19 08:11 71 151/65 09/26/19 07:00 98.1 18 98.1 I & O 09/25/19 09/25/19 09/26/19 15:00 23:00 07:00 Output Total 200 ml Balance -200 ml LABS Lab: Laboratory Tests Test 09/25/19 19:35 09/26/19 03:50 White Blood Count 6.3 x10^3/uL (4.0-11.0) Red Blood Count 4.53 x10^6/uL (3.50-5.40) Hemoglobin 14.0 g/dL (12.0-15.5) Hematocrit 41.3 % (36.0-47.0) Mean Corpuscular Volume 91 fL (79-100) Mean Corpuscular Hemoglobin 31 pg (25-35) Mean Corpuscular Hemoglobin Concent 34 g/dL (31-37) Red Cell Distribution Width 14.5 % (11.5-14.5) Platelet Count 233 x10^3/uL (140-400) Neutrophils (%) (Auto) 58 % (31-73) Lymphocytes (%) (Auto) 28 % (24-48) Monocytes (%) (Auto) 14 % (0-9) H Eosinophils (%) (Auto) 0 % (0-3) Basophils (%) (Auto) 0 % (0-3) Neutrophils # (Auto) 3.6 x10^3/uL (1.8-7.7) Lymphocytes # (Auto) 1.8 x10^3/uL (1.0-4.8) Monocytes # (Auto) 0.9 x10^3/uL (0.0-1.1) Eosinophils # (Auto) 0.0 x10^3/uL (0.0-0.7) Basophils # (Auto) 0.0 x10^3/uL (0.0-0.2) Prothrombin Time 13.4 SEC (11.7-14.0) Prothrombin Time INR 1.1 (0.8-1.1) Sodium Level 144 mmol/L (136-145) Potassium Level 3.5 mmol/L (3.5-5.1) Chloride Level 105 mmol/L (98-107) Carbon Dioxide Level 30 mmol/L (21-32) Anion Gap 9 (6-14) Blood Urea Nitrogen 19 mg/dL (7-20) Creatinine 1.3 mg/dL (0.6-1.0) H Estimated GFR (Cockcroft-Gault) 40.4 BUN/Creatinine Ratio 15 (6-20) Glucose Level 101 mg/dL (70-99) H Calcium Level 8.5 mg/dL (8.5-10.1) Magnesium Level 1.7 mg/dL (1.8-2.4) L Total Bilirubin 0.5 mg/dL (0.2-1.0) Aspartate Amino Transferase (AST) 17 U/L (15-37) Alanine Aminotransferase (ALT) 18 U/L (14-59) Alkaline Phosphatase 105 U/L (46-116) Creatine Kinase 55 U/L (26-192) Creatine Kinase MB (Mass) 0.5 ng/mL (0.0-3.6) Creatine Kinase MB Relative Index % (0-4) Troponin I Quantitative < 0.017 ng/mL (0.000-0.055) < 0.017 ng/mL (0.000-0.055) YA-Gmn-W-Type Natriuretic Peptide 387 pg/mL (0-124) H Total Protein 6.8 g/dL (6.4-8.2) Albumin 3.5 g/dL (3.4-5.0) Albumin/Globulin Ratio 1.1 (1.0-1.7) Laboratory Tests 09/25/19 19:35 Laboratory Tests 09/25/19 19:35 ASSESSMENT/PLAN ASSESSMENT/PLAN 1. Atypical CP: noncardiac. MSK in etiology with possible L RTC tear 2. Mechanical fall 3. CAD: past CABG: clinically stable 4. HTN 5. HLP 6. Morbid obesity 7. Possible ENMA Recommendations 1. shoulder/arm imaging per PCP 2. Continue ASA and secondary prevention measures. 3. OT/PT eval and treat. 4. Consider outpt ENMA w/u and outpt TTE if none recent JANUSZ PLASCENCAI MD 09/26/19 1518: CARDIAC CONSULT ASSESSMENT/PLAN ASSESSMENT/PLAN Patient seen and examined. Agree with MARKETING EDUCATION TEACHER's assessment and plan. Chest pain with atypical features and most probably musculoskeletal. Myocardial infarction has been ruled out. CAD status appears clinically stable overall. Continue current medical regimen and plan for outpatient 2-D echo Thank you for your consultation. SAVANA LOPEZ APRN Sep 26, 2019 10:47 JANUSZ PLASCENCIA MD Sep 26, 2019 15:18
[2019-09-26 11:00] VITALS: BP 131/60
[2019-09-26 11:12] LABS: CHOLESTEROL/HDL RATIO 3.3
--- NOTE | 2019-09-26 11:18 | NUR ---
SS following for discharge planning. SS reviewed pt chart. Pt is from home and is currently on room air. SS will continue to follow for discharge planning.
[2019-09-26] MEDS: MAGNESIUM OXIDE 400 MG TABLET PO SCH (11:56)
--- NOTE | 2019-09-26 12:20 | PDOC ---
[employer]GRESS NOTE Chief Complaint Chief Complaint Chest pain CAD s/p CABG History of Present Illness History of Present Illness 09/26/19 Pt seen and examined laying in bed pleasant and conversational. Admitted for atypical chest pain yesterday. Echo obtained yesterday-await results. CXR yesterday showed medial right base atelectasis. Troponins negative, EKG normal. INR 1.1. Mg low at 1.7 will replace. Spoke with RN and reviewed chart. Cardiology consulted and cleared ok to discharge. Vitals/I&O Vitals/I&O: Vital Signs Date Time Temp Pulse Resp B/P (MAP) Pulse Ox O2 Delivery O2 Flow Rate FiO2 09/26/19 11:00 98.2 59 18 131/60 (83) 91 Room Air 98.2 I & O 09/25/19 09/25/19 09/26/19 15:00 23:00 07:00 Output Total 200 ml Balance -200 ml Physical Exam General: Alert, Oriented X3, Cooperative, No acute distress Heart: Regular rate (SR no ectopies), Normal S1, Normal S2, No murmurs Lungs: Clear Abdomen: Soft, No tenderness Extremities: No cyanosis, Other (2+ bilateral pitting edema) Skin: No breakdown, No significant lesion Labs Labs: Laboratory Tests Test 09/25/19 19:35 09/26/19 03:50 White Blood Count 6.3 x10^3/uL (4.0-11.0) Red Blood Count 4.53 x10^6/uL (3.50-5.40) Hemoglobin 14.0 g/dL (12.0-15.5) Hematocrit 41.3 % (36.0-47.0) Mean Corpuscular Volume 91 fL (79-100) Mean Corpuscular Hemoglobin 31 pg (25-35) Mean Corpuscular Hemoglobin Concent 34 g/dL (31-37) Red Cell Distribution Width 14.5 % (11.5-14.5) Platelet Count 233 x10^3/uL (140-400) Neutrophils (%) (Auto) 58 % (31-73) Lymphocytes (%) (Auto) 28 % (24-48) Monocytes (%) (Auto) 14 % (0-9) Eosinophils (%) (Auto) 0 % (0-3) Basophils (%) (Auto) 0 % (0-3) Neutrophils # (Auto) 3.6 x10^3/uL (1.8-7.7) Lymphocytes # (Auto) 1.8 x10^3/uL (1.0-4.8) Monocytes # (Auto) 0.9 x10^3/uL (0.0-1.1) Eosinophils # (Auto) 0.0 x10^3/uL (0.0-0.7) Basophils # (Auto) 0.0 x10^3/uL (0.0-0.2) Prothrombin Time 13.4 SEC (11.7-14.0) Prothromb Time International Ratio 1.1 (0.8-1.1) Sodium Level 144 mmol/L (136-145) Potassium Level 3.5 mmol/L (3.5-5.1) Chloride Level 105 mmol/L (98-107) Carbon Dioxide Level 30 mmol/L (21-32) Anion Gap 9 (6-14) Blood Urea Nitrogen 19 mg/dL (7-20) Creatinine 1.3 mg/dL (0.6-1.0) Estimated GFR (Cockcroft-Gault) 40.4 BUN/Creatinine Ratio 15 (6-20) Glucose Level 101 mg/dL (70-99) Calcium Level 8.5 mg/dL (8.5-10.1) Magnesium Level 1.7 mg/dL (1.8-2.4) Total Bilirubin 0.5 mg/dL (0.2-1.0) Aspartate Amino Transf (AST/SGOT) 17 U/L (15-37) Alanine Aminotransferase (ALT/SGPT) 18 U/L (14-59) Alkaline Phosphatase 105 U/L (46-116) Creatine Kinase 55 U/L (26-192) Creatine Kinase MB (Mass) 0.5 ng/mL (0.0-3.6) Creatine Kinase MB Relative Index % (0-4) Troponin I Quantitative < 0.017 ng/mL (0.000-0.055) < 0.017 ng/mL (0.000-0.055) ZB-Ftd-P-Type Natriuretic Peptide 387 pg/mL (0-124) Total Protein 6.8 g/dL (6.4-8.2) Albumin 3.5 g/dL (3.4-5.0) Albumin/Globulin Ratio 1.1 (1.0-1.7) Triglycerides Level 100 mg/dL (0-150) Cholesterol Level 125 mg/dL (0-200) LDL Cholesterol, Calculated 67 mg/dL (0-100) VLDL Cholesterol, Calculated 20 mg/dL (0-40) Non-HDL Cholesterol Calculated 87 mg/dL (0-129) HDL Cholesterol 38 mg/dL (40-60) Cholesterol/HDL Ratio 3.3 Thyroid Stimulating Hormone (TSH) 3.653 uIU/mL (0.358-3.74) Assessment and Plan Assessmemt and Plan Assessment Atypical chest pain History of coronary artery disease s/p CABG hypomagnesemia Morbid obesity with BMI of 44 Dyslipidemia CKD stage III Plan Serial EKG and cardiac enzymes cardiac monitoring Magnesium oxide 250mg PO qd PRN nitroglycerin Home meds DVT prophylaxis Full code Cardiology signed off Dispo: discharge today Comment Review of Relevant I have reviewed the following items terrance (where applicable) has been applied. Medications: Current Medications Medications (Trade) Dose Ordered Sig/Carmelo Route PRN Reason Start Time Stop Time Status Last Admin Dose Admin Acetaminophen (Tylenol) 650 mg PRN Q4HRS PRN PO TEMP OVER 100.4F OR MILD PAIN 09/25/19 21:45 09/26/19 08:12 Enoxaparin Sodium (Lovenox 40mg Syringe) 40 mg Q24H SQ 09/25/19 22:00 09/25/19 23:49 Amlodipine Besylate (Norvasc) 10 mg DAILY PO 09/26/19 09:00 09/26/19 08:10 Aspirin (Children'S Aspirin) 81 mg DAILYWBKFT PO 09/26/19 08:00 09/26/19 08:11 Furosemide (Lasix) 40 mg DAILY PO 09/26/19 09:00 09/26/19 08:09 Pantoprazole Sodium (Protonix) 40 mg DAILYAC PO 09/26/19 07:30 09/26/19 08:11 Potassium Chloride (Klor-Con) 20 meq DAILYWBKFT PO 09/26/19 08:00 09/26/19 08:10 Simvastatin (Zocor) 20 mg HS PO 09/25/19 22:45 09/25/19 23:49 Trazodone HCl (Desyrel) 100 mg HS PO 09/25/19 22:45 09/25/19 23:49 Carvedilol (Coreg) 12.5 mg BIDWMEALS PO 09/26/19 08:00 09/26/19 08:11 Fluoxetine HCl (PROzac) 40 mg DAILY PO 09/26/19 09:00 09/26/19 08:12 Gabapentin (Neurontin) 300 mg BID PO 09/25/19 22:45 09/26/19 08:10 Multivit/ Folic Acid/Iron (Multivitamin ) 1 tab DAILY PO 09/26/19 09:00 09/26/19 09:08 Terazosin HCl (Hytrin) 1 mg HS PO 09/25/19 22:45 09/25/19 23:48 Furosemide (Lasix) 40 mg 1X ONCE IVP 09/25/19 22:00 09/25/19 22:01 DC 09/25/19 23:56 Doxycycline Hyclate (Vibra-Tab) 100 mg BID PO 09/26/19 09:00 09/26/19 08:11 Magnesium Oxide (Magnesium Oxide) 400 mg DAILY PO 09/26/19 11:45 09/26/19 11:56 BARNEY RICH III DO Sep 26, 2019 12:20
[2019-09-26] MEDS ORDERED: MAGN250T9 PO (13:10)
--- NOTE | 2019-09-26 14:58 | RAD ---
SHOULDER 2+V LEFT History: Limited range of motion Technique: 3 views left shoulder Comparison: None. Findings: Normal alignment of the left glenohumeral and acromioclavicular joints. Mild left acromioclavicular DJD. No fracture. Prior median sternotomy. Impression: 1. No acute osseous abnormality. 2. Mild left acromioclavicular DJD. Electronically signed by: Alan Ang DO (09/26/2019 2:54 PM) [id number]
[2019-09-26 15:00] VITALS: BP 148/66
--- NOTE | 2019-09-26 18:05 | RAD ---
STUDY: CT head and cervical spine without contrast INDICATION: Gait instability. COMPARISON: None. TECHNIQUE: Axial CT imaging through the head and cervical spine without the use of intravenous contrast. Sagittal and coronal reformats were obtained. One or more of the following individualized dose reduction techniques were utilized for this examination: 1. Automated exposure control 2. Adjustment of the mA and/or kV according to patient size 3. Use of iterative reconstruction technique. FINDINGS: CT head: No acute intracranial hemorrhage. Regions of the left frontotemporal pretty-white matter interface are less distinct relative to the contralateral side but the cortex remains delineated. Basal ganglia low-attenuation on the left with associated asymmetric prominence of the left lateral ventricle anterior horn is most compatible with a remote tire setter infarct. Patchy bihemispheric subcortical white matter and periventricular low-attenuation is greater on the left than the right. There is faint asymmetric low attenuation within the left thalamus, image 17 series 2. Asymmetric increased density of the carotid terminus on the left, image 13 series 2. Intracranial atherosclerotic calcifications. Solitary ovoid lucency projects within the diploic space of the right parietal bone, image 25 series 3. The calvarium is intact. CT cervical spine: No acute fracture or aggressive osseous process. No traumatic malalignment. Multilevel and multifactorial degenerative changes with discogenic arthrosis most pronounced at C5-C6 and C6-C7. No severe osseous encroachment on the central canal is apparent mostly mild osseous neural foraminal encroachment. ) Left carotid bulb atherosclerotic calcifications. No prevertebral edema. IMPRESSION: CT head: 1. 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 There is subtle asymmetric low attenuation within the left thalamus with no comparison studies available to determine stability. An age-indeterminant tire setter infarct is a consideration. 2. More pronounced patchy low-attenuation within the bihemispheric/periventricular subcortical white matter involving the left cerebral hemisphere relative to the right. The appearance is most likely on account of chronic microvascular ischemic change. 3. Subtle asymmetric increased density at the left carotid terminus relative to the right. No overt loss of the pretty-white matter interface to suggest an acute cortical infarction in the left middle cerebral artery distribution but if there is concern for an acute ischemic event MRI is recommended. CT cervical spine: 1. No acute fracture or traumatic malalignment. 2. Multifactorial degenerative changes but without evidence for severe osseous central canal stenosis. Mostly mild osseous encroachment on scattered neural foramina that is greatest degree on the right at C4-C5. Electronically signed by: FAB GUADALUPE MD (09/26/2019 6:02 PM) [id number]
--- NOTE | 2019-09-26 18:43 | PDOC2 ---
NEUROLOGY CONSULT Date of Admission Date of Admission DATE: 09/26/19 TIME: 18:33 Reason for Consult Reason for Consult: IMPRESSION: Gait instability. LE weakness. Fall. Chest pain. Peripheral neuropathy. Cellulitis, left LE. CAD s/p CABG. HTN. HLD. Degenerative C-spine disease. 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 Morbid obesity. RECOMMENDATIONS/PLAN: Head and cervical spine CT performed. Lab: see orders. Treat medical diseases. Please consult Dr. Garcia. OT/PT. HISTORY OF PRESENT ILLNESS This is a 73-year-old female patient who was admitted due to complains of chest pain. Neurology consultation is requested for weakness and fall. She stated she had generalized weakness especially LE weakness for over 3 days and had a fall. She has left LE cellulitis more than a week that also contributes difficulties for her walking. Her cranial nerves and UE are not involved. PAST MEDICAL HISTORY Cardiovascular: CAD, HTN, Hyperlipidemia, Other (angioedema related to sena beans) Pulmonary: No pertinent hx CENTRAL NERVOUS SYSTEM: Other (No pertinent history) GI: GERD, Other (esophageal tear) Heme/Onc: Anemia NOS ENT: No pertinent hx Renal/: Urinary Incontinence Endocrine: No pertinent hx PAST SURGICAL HISTORY CABG (x2 SVG to OM to RCA 2011), Total knee replacement (left), Other ([facility] 01/23/2019 with no intervention at [facility]; esophageal tear repari 2018) FAMILY HISTORY Coronary Artery Disease (aunt) SOCIAL HISTORY Smoke: Quit ALCOHOL: none Drugs: None Lives: with Family (daughter) ALLERGIES Uncoded Allergies: SENA BEANS (Allergy, Unknown, ANAPHYLACTIC, 09/26/19) MEDICATIONS: Refer to [facility] REVIEW OF SYSTEMS: Constitutional: Morbid obesity. Head: No traumatic brain or head injury. Skin: No edema, or rash. Ear: No infection. Eyes: No vision loss or color blindness. Nose: No bleeding or purulent discharges. Hearing: No hearing decrease. Neck: No injury. Breast: No history of cancer, masses,or discharges. Cardiac: CAD, s/p CABG, HTN, HLD. Pulmonary: SOB. GI: No GI ulcer, GI bleeding. Urinary/genital: UTI. Endocrinologic: Morbid obesity. Skeletomuscular: Generalized weakness. Neurological: see HP. Psychiatric: Denies drug use/abuse. Otherwise, not [id number] review of systems. PHYSICAL EXAMINATION: General appearance is in subacute distress. HEENT: Normocephalic and nontraumatic. Eyes, nose, ears, and throat are unremarkable. Neck is supple. No lymphadenopathy. No crepitus. Cardiovascular: S1, S2, regular rate and rhythm. Pulmonary: Clear to auscultation bilaterally. Abdomen: Bowel sounds are positive. Extremities: No rash, lesions, or edema. No restriction of range of motion NEUROLOGICAL EXAMINATION: Alert Oriented to time, place and person. PERRL. EOMI. CN: no focal findings. Muscle tone: within normal. Muscle strength: 5- DTR: 2- Lefr knee 1- Plantar reflex: Flexor response bilaterally Gait: not examined in sofa. Sensory exam: no abnormal findings. No cerebellar signs elicited. F-T-N test fine. Current Medications Current Medications Current Medications Ondansetron HCl (Zofran) 4 mg PRN Q4HRS PRN IV NAUSEA/VOMITING; Start 09/25/19 at 21:45 Zolpidem Tartrate (Ambien) 5 mg PRN QHS PRN PO INSOMNIA; Start 09/25/19 at 21:45 Acetaminophen (Tylenol) 650 mg PRN Q4HRS PRN PO TEMP OVER 100.4F OR MILD PAIN Last administered on 09/26/19at 08:12; Start 09/25/19 at 21:45 Docusate Sodium (Colace) 100 mg PRN BID PRN PO CONSTIPATION; Start 09/25/19 at 21:45 Albuterol Sulfate (Ventolin Neb Soln) 2.5 mg PRN Q4HRS PRN NEB SHORTNESS OF BREATH; Start 09/25/19 at 21:45 Guaifenesin (Robitussin) 200 mg PRN Q4HRS PRN PO COUGH; Start 09/25/19 at 21:45 Lorazepam (Ativan) 0.5 mg PRN Q4HRS PRN PO ANXIETY / AGITATION; Start 09/25/19 at 21:45 Enoxaparin Sodium (Lovenox 40mg Syringe) 40 mg Q24H SQ Last administered on 09/25/19at 23:49; Start 09/25/19 at 22:00 Amlodipine Besylate (Norvasc) 10 mg DAILY PO Last administered on 09/26/19at 08:10; Start 09/26/19 at 09:00 Aspirin (Children'S Aspirin) 81 mg DAILYWBKFT PO Last administered on 09/26/19 08:11; Start 09/26/19 at 08:00 Furosemide (Lasix) 40 mg DAILY PO Last administered on 09/26/19at 08:09; Start 09/26/19 at 09:00 Pantoprazole Sodium (Protonix) 40 mg DAILYAC PO Last administered on 09/26/19 08:11; Start 09/26/19 at 07:30 Potassium Chloride (Klor-Con) 20 meq DAILYWBKFT PO Last administered on 09/26/19at 08:10; Start 09/26/19 at 08:00 Simvastatin (Zocor) 20 mg HS PO Last administered on 09/25/19 23:49; Start 09/25/19 at 22:45 Tramadol HCl (Ultram) 50 mg PRN Q6HRS PRN PO PAIN; Start 09/25/19 at 21:45 Trazodone HCl (Desyrel) 100 mg HS PO Last administered on 09/25/19 23:49; Start 09/25/19 at 22:45 Carvedilol (Coreg) 12.5 mg BIDWMEALS PO Last administered on 09/26/19 17:25; Start 09/26/19 at 08:00 Fluoxetine HCl (PROzac) 40 mg DAILY PO Last administered on 09/26/19 08:12; Start 09/26/19 at 09:00 Gabapentin (Neurontin) 300 mg BID PO Last administered on 09/26/19 08:10; Start 09/25/19 at 22:45 Multivit/ Folic Acid/Iron (Multivitamin ) 1 tab DAILY PO Last administered on 09/26/19 09:08; Start 09/26/19 at 09:00 Terazosin HCl (Hytrin) 1 mg HS PO Last administered on 09/25/19 23:48; Start 09/25/19 at 22:45 Furosemide (Lasix) 40 mg 1X ONCE IVP Last administered on 09/25/19 23:56; Start 09/25/19 at 22:00; Stop 09/25/19 at 22:01; Status DC Ondansetron HCl (Zofran) 4 mg PRN Q8HRS PRN IV NAUSEA/VOMITING; Start 09/25/19 at 22:00; Stop 09/26/19 at 21:59 Doxycycline Hyclate (Vibra-Tab) 100 mg BID PO Last administered on 09/26/19at 08:11; Start 09/26/19 at 09:00 Magnesium Oxide (Magnesium Oxide) 400 mg DAILY PO ; Start 09/27/19 at 09:00; Stop 09/26/19 at 11:36; Status DC Magnesium Oxide (Magnesium Oxide) 400 mg DAILY PO Last administered on 09/26/19at 11:56; Start 09/26/19 at 11:45 Active Scripts Active Reported Magnesium Oxide 250 Mg Tablet 250 Mg PO DAILY Doxycycline Hyclate 100 Mg Tablet.dr 1 Tab PO BID 7 Days Carvedilol 25 Mg Tablet 12.5 Mg PO BIDWMEALS Furosemide 40 Mg Tablet 40 Mg PO DAILY Pantoprazole Sodium (Pantoprazole Sodium) 40 Mg Tablet.dr 40 Mg PO DAILYAC Simvastatin 20 Mg Tablet 20 Mg PO HS Trazodone Hcl 100 Mg Tablet 100 Mg PO HS Fluoxetine Hcl 40 Mg Capsule 40 Mg PO DAILY Amlodipine Besylate 10 Mg Tablet 10 Mg PO DAILY Aspirin 81 Mg Tab.chew 81 Mg PO DAILY Tramadol Hcl 50 Mg Tablet 50 Mg PO Q6HRS PRN Potassium Chloride (Potassium Chloride) 20 Meq Tablet.er 20 Meq PO DAILY Gabapentin 600 Mg Tablet 300 Mg PO BID Multi Vitamin Daily (Multivitamin) 1 Each Tablet 1 Tab PO DAILY 30 Days [terozosin] 1 Mg PO HS Allergies Allergies: Allergies Uncoded Allergies Type Severity Reaction Last Updated Verified SENA BEANS Allergy Unknown ANAPHYLACTIC 09/26/19 ROS Review of System The patient denies any associated fevers, chills, headache, ear pain, rhinorrhea, sore throat, stiff neck, productive cough, chest pain, shortness of breath, back or flank pain, abdominal pain, nausea, vomiting, diarrhea, constipation, dysuria, rash, numbness, weakness, tingling, incontinence, difficulty ambulating, or diaphoresis. Physical Exam Physical Exam General: Well developed, well nourished, no acute distress, well appearing HEENT: Pupils equally round and reactive to light, EOMI, no discharge, normal conjunctiva Neck: Supple, no nuchal rigidity, no JVD, trachea midline, no tenderness Cardiac: RRR, no murmurs, no gallops, no rubs Chest/Lungs: CTAB, no wheeze, no rhonchi, no crackles Abdomen: soft, non-distended, no guarding, no peritoneal signs, non-tender Back: No tenderness Extremities: no edema, pulses intact, non-tender,capillary refill <3 sec bilateral upper and lower extremities, Neuro: Alert and oriented x 4, no focal deficits, normal speech Vitals Vitals: Vital Signs Date Time Temp Pulse Resp B/P (MAP) Pulse Ox O2 Delivery O2 Flow Rate FiO2 09/26/19 17:25 62 148/66 09/26/19 15:00 97.8 18 91 Room Air 97.8 Labs Labs Laboratory Tests Test 09/25/19 19:35 09/26/19 03:50 White Blood Count 6.3 x10^3/uL (4.0-11.0) Red Blood Count 4.53 x10^6/uL (3.50-5.40) Hemoglobin 14.0 g/dL (12.0-15.5) Hematocrit 41.3 % (36.0-47.0) Mean Corpuscular Volume 91 fL (79-100) Mean Corpuscular Hemoglobin 31 pg (25-35) Mean Corpuscular Hemoglobin Concent 34 g/dL (31-37) Red Cell Distribution Width 14.5 % (11.5-14.5) Platelet Count 233 x10^3/uL (140-400) Neutrophils (%) (Auto) 58 % (31-73) Lymphocytes (%) (Auto) 28 % (24-48) Monocytes (%) (Auto) 14 % (0-9) Eosinophils (%) (Auto) 0 % (0-3) Basophils (%) (Auto) 0 % (0-3) Neutrophils # (Auto) 3.6 x10^3/uL (1.8-7.7) Lymphocytes # (Auto) 1.8 x10^3/uL (1.0-4.8) Monocytes # (Auto) 0.9 x10^3/uL (0.0-1.1) Eosinophils # (Auto) 0.0 x10^3/uL (0.0-0.7) Basophils # (Auto) 0.0 x10^3/uL (0.0-0.2) Prothrombin Time 13.4 SEC (11.7-14.0) Prothromb Time International Ratio 1.1 (0.8-1.1) Sodium Level 144 mmol/L (136-145) Potassium Level 3.5 mmol/L (3.5-5.1) Chloride Level 105 mmol/L (98-107) Carbon Dioxide Level 30 mmol/L (21-32) Anion Gap 9 (6-14) Blood Urea Nitrogen 19 mg/dL (7-20) Creatinine 1.3 mg/dL (0.6-1.0) Estimated GFR (Cockcroft-Gault) 40.4 BUN/Creatinine Ratio 15 (6-20) Glucose Level 101 mg/dL (70-99) Calcium Level 8.5 mg/dL (8.5-10.1) Magnesium Level 1.7 mg/dL (1.8-2.4) Total Bilirubin 0.5 mg/dL (0.2-1.0) Aspartate Amino Transf (AST/SGOT) 17 U/L (15-37) Alanine Aminotransferase (ALT/SGPT) 18 U/L (14-59) Alkaline Phosphatase 105 U/L (46-116) Creatine Kinase 55 U/L (26-192) 61 U/L (26-192) Creatine Kinase MB (Mass) 0.5 ng/mL (0.0-3.6) Creatine Kinase MB Relative Index % (0-4) Troponin I Quantitative < 0.017 ng/mL (0.000-0.055) < 0.017 ng/mL (0.000-0.055) SG-Kei-L-Type Natriuretic Peptide 387 pg/mL (0-124) Total Protein 6.8 g/dL (6.4-8.2) Albumin 3.5 g/dL (3.4-5.0) Albumin/Globulin Ratio 1.1 (1.0-1.7) Vitamin B12 Level 720 pg/mL (247-911) Triglycerides Level 100 mg/dL (0-150) Cholesterol Level 125 mg/dL (0-200) LDL Cholesterol, Calculated 67 mg/dL (0-100) VLDL Cholesterol, Calculated 20 mg/dL (0-40) Non-HDL Cholesterol Calculated 87 mg/dL (0-129) HDL Cholesterol 38 mg/dL (40-60) Cholesterol/HDL Ratio 3.3 Thyroid Stimulating Hormone (TSH) 3.653 uIU/mL (0.358-3.74) Laboratory Tests Test 09/25/19 19:35 09/26/19 03:50 White Blood Count 6.3 x10^3/uL (4.0-11.0) Red Blood Count 4.53 x10^6/uL (3.50-5.40) Hemoglobin 14.0 g/dL (12.0-15.5) Hematocrit 41.3 % (36.0-47.0) Mean Corpuscular Volume 91 fL (79-100) Mean Corpuscular Hemoglobin 31 pg (25-35) Mean Corpuscular Hemoglobin Concent 34 g/dL (31-37) Red Cell Distribution Width 14.5 % (11.5-14.5) Platelet Count 233 x10^3/uL (140-400) Neutrophils (%) (Auto) 58 % (31-73) Lymphocytes (%) (Auto) 28 % (24-48) Monocytes (%) (Auto) 14 % (0-9) Eosinophils (%) (Auto) 0 % (0-3) Basophils (%) (Auto) 0 % (0-3) Neutrophils # (Auto) 3.6 x10^3/uL (1.8-7.7) Lymphocytes # (Auto) 1.8 x10^3/uL (1.0-4.8) Monocytes # (Auto) 0.9 x10^3/uL (0.0-1.1) Eosinophils # (Auto) 0.0 x10^3/uL (0.0-0.7) Basophils # (Auto) 0.0 x10^3/uL (0.0-0.2) Prothrombin Time 13.4 SEC (11.7-14.0) Prothromb Time International Ratio 1.1 (0.8-1.1) Sodium Level 144 mmol/L (136-145) Potassium Level 3.5 mmol/L (3.5-5.1) Chloride Level 105 mmol/L (98-107) Carbon Dioxide Level 30 mmol/L (21-32) Anion Gap 9 (6-14) Blood Urea Nitrogen 19 mg/dL (7-20) Creatinine 1.3 mg/dL (0.6-1.0) Estimated GFR (Cockcroft-Gault) 40.4 BUN/Creatinine Ratio 15 (6-20) Glucose Level 101 mg/dL (70-99) Calcium Level 8.5 mg/dL (8.5-10.1) Magnesium Level 1.7 mg/dL (1.8-2.4) Total Bilirubin 0.5 mg/dL (0.2-1.0) Aspartate Amino Transf (AST/SGOT) 17 U/L (15-37) Alanine Aminotransferase (ALT/SGPT) 18 U/L (14-59) Alkaline Phosphatase 105 U/L (46-116) Creatine Kinase 55 U/L (26-192) 61 U/L (26-192) Creatine Kinase MB (Mass) 0.5 ng/mL (0.0-3.6) Creatine Kinase MB Relative Index % (0-4) Troponin I Quantitative < 0.017 ng/mL (0.000-0.055) < 0.017 ng/mL (0.000-0.055) WF-Mdh-Y-Type Natriuretic Peptide 387 pg/mL (0-124) Total Protein 6.8 g/dL (6.4-8.2) Albumin 3.5 g/dL (3.4-5.0) Albumin/Globulin Ratio 1.1 (1.0-1.7) Vitamin B12 Level 720 pg/mL (247-911) Triglycerides Level 100 mg/dL (0-150) Cholesterol Level 125 mg/dL (0-200) LDL Cholesterol, Calculated 67 mg/dL (0-100) VLDL Cholesterol, Calculated 20 mg/dL (0-40) Non-HDL Cholesterol Calculated 87 mg/dL (0-129) HDL Cholesterol 38 mg/dL (40-60) Cholesterol/HDL Ratio 3.3 Thyroid Stimulating Hormone (TSH) 3.653 uIU/mL (0.358-3.74) JARRETT CH MD Sep 26, 2019 18:43
[2019-09-26 19:30] VITALS: BP 155/73
[2019-09-26] MEDS: traZODone 100 MG TABLET. PO SCH (20:50)
[2019-09-26] MEDS: TERAZOSIN 1 MG CAPSULE. PO SCH (20:50)
[2019-09-26] MEDS: SIMVASTATIN 20 MG TABLET PO SCH (20:50)
[2019-09-26] MEDS: ENOXAPARIN 40 MG/0.4 ML SYRINGE. SQ SCH (20:50)
[2019-09-26 23:06] VITALS: BP 132/66
[2019-09-27 02:56] VITALS: BP 174/72
[2019-09-27 07:00] VITALS: BP 159/70
--- NOTE | 2019-09-27 08:32 | PDOC ---
[employer] PROGRESS NOTE Chief Complaint Chief Complaint Chest pain CAD s/p CABG Old and possible new Small strokes Gait instability. LE weakness. Fall. Chest pain. Peripheral neuropathy. Cellulitis, left LE. CAD s/p CABG. HTN. HLD. Degenerative C-spine disease. 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 Morbid obesity. History of Present Illness History of Present Illness [id number] Patient seen and examined Resting with no apparent distress Discussed with RN Chart reviewed Appreciate neurology input Awaiting consultation with physiatry 09/26/19 Pt seen and examined laying in bed pleasant and conversational. Admitted for atypical chest pain yesterday. Echo obtained yesterday-await results. CXR yesterday showed medial right base atelectasis. Troponins negative, EKG normal. INR 1.1. Mg low at 1.7 will replace. Spoke with RN and reviewed chart. Cardiology consulted and cleared ok to discharge. Vitals/I&O Vitals/I&O: Vital Signs Date Time Temp Pulse Resp B/P (MAP) Pulse Ox O2 Delivery O2 Flow Rate FiO2 09/27/19 07:00 98.7 61 18 159/70 (99) 93 Room Air 98.7 I & O 09/26/19 09/26/19 09/27/19 15:00 23:00 07:00 Intake Total 400 ml 520 ml Output Total 250 ml 350 ml 500 ml Balance -250 ml 50 ml 20 ml Physical Exam General: No acute distress Heart: Regular rate (SR no ectopies), Normal S1, Normal S2, No murmurs Lungs: Clear Abdomen: Soft, No tenderness Extremities: No cyanosis, Other (2+ bilateral pitting edema) Skin: No breakdown, No significant lesion Assessment and Plan Assessmemt and Plan Gait instability. Possible old and new strokes LE weakness. Fall. Chest pain. Peripheral neuropathy. Cellulitis, left LE. CAD s/p CABG. HTN. HLD. Degenerative C-spine disease. 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 Morbid obesity. 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 Comment Review of Relevant I have reviewed the following items terrance (where applicable) has been applied. Medications: Current Medications Medications (Trade) Dose Ordered Sig/Carmelo Route PRN Reason Start Time Stop Time Status Last Admin Dose Admin Amlodipine Besylate (Norvasc) 10 mg DAILY PO 09/26/19 09:00 09/26/19 08:10 Furosemide (Lasix) 40 mg DAILY PO 09/26/19 09:00 09/26/19 08:09 Fluoxetine HCl (PROzac) 40 mg DAILY PO 09/26/19 09:00 09/26/19 08:12 Multivit/ Folic Acid/Iron (Multivitamin ) 1 tab DAILY PO 09/26/19 09:00 09/26/19 09:08 Doxycycline Hyclate (Vibra-Tab) 100 mg BID PO 09/26/19 09:00 09/26/19 20:50 Magnesium Oxide (Magnesium Oxide) 400 mg DAILY PO 09/26/19 11:45 09/26/19 11:56 BARNEY RICH III DO Sep 27, 2019 08:32
[2019-09-27] MEDS ORDERED: MAGNESIUM OXIDE 400 MG TABLET PO SCH (09:00)
[2019-09-27] MEDS: FLUoxetine HCL 20 MG CAPSULE PO SCH (09:08)
[2019-09-27] MEDS: amLODIPine BESYLATE 10 MG TABLET PO SCH (09:08)
[2019-09-27] MEDS: DOXYCYCLINE HYCLATE 100 MG TABLET PO SCH ×2 (09:08→20:38)
[2019-09-27] MEDS: PANTOPRAZOLE 40 MG TABLET.DR. PO SCH (09:08)
[2019-09-27] MEDS: CARVEDILOL 12.5 MG TABLET. PO SCH ×2 (09:08→17:44)
[2019-09-27] MEDS: GABAPENTIN 300 MG CAPSULE. PO SCH ×2 (09:08→20:40)
[2019-09-27] MEDS: FUROSEMIDE 40 MG TABLET. PO SCH (09:09)
[2019-09-27] MEDS: POTASSIUM CHLORIDE 20 MEQ TABLET.ER. PO SCH (09:09)
[2019-09-27] MEDS: ASPIRIN CHEWABLE 81 MG TABLET. PO SCH (09:09)
[2019-09-27] MEDS: MAGNESIUM OXIDE 400 MG TABLET PO SCH (09:09)
[2019-09-27] MEDS: PRENATAL MULTIVITAMIN TABLET. PO SCH (09:09)
[2019-09-27] MEDS: traMADol 50 MG TABLET PO PRN (09:12)
[2019-09-27 10:48] VITALS: BP 132/61
--- NOTE | 2019-09-27 12:24 | NUR ---
SS following up with discharge planning. PT/OT recommended care home unit at discharge. SS met with pt and spoke with pt's daughter via phone to discuss discharge planning and care home unit. Pt's daughter requesting that pt go to [facility], ; fax [phone]. SS phoned and faxed referral to [facility]. SS awaiting acceptance decision and insurance determination and will proceed accordingly with discharge planning.
--- NOTE | 2019-09-27 12:51 | RAD ---
2 views left knee 09/27/2019 10:25 AM Indication: Knee pain following arthroplasty Comparison: None available Findings: There are postsurgical changes following total knee arthroplasty. Tibial and femoral components appear to be intact. No unexpected lucency or other evidence of loosening is seen. Possible trace joint effusion is noted. Patellofemoral compartment is somewhat poorly evaluated given rotation on lateral view. IMPRESSION: 1.Postsurgical changes following total knee arthroplasty 2. Possible trace joint effusion Electronically signed by: Wilton Schafer MD (09/27/2019 12:47 PM) [id number]
--- NOTE | 2019-09-27 12:56 | NUR ---
Pt void 70ml after an episode of incontinence; post residual 0ml per bladder scanner .
[2019-09-27] MEDS: DICLOFENAC SODIUM 1% TOPICAL GEL 100GM TUBE. TP SCH ×2 (13:31→20:41)
--- NOTE | 2019-09-27 14:20 | CONS ---
DATE OF CONSULTATION: 09/27/2019 ATTENDING PHYSICIAN: Arvin Lopez MD REASON FOR CONSULTATION: The patient was seen at the request of Dr. Peterson for rehab evaluation. HISTORY OF PRESENT ILLNESS: This is a 73-year-old female admitted on 09/26/2019 after complaining of chest pain. The patient apparently had a fall and she complains of left shoulder pain. The patient admits that she is having increased difficulty with her balance and weakness and had to use a walker for the last 2 weeks. She had left lower extremity cellulitis for more than one week. The patient with known coronary artery disease, hypertension, hyperlipidemia, gastroesophageal reflux disease with history of esophageal tear, anemia. Also, urinary incontinence for the last 2 years or so, status post coronary artery bypass graft, left total knee arthroplasty done about 5 years ago with some pain in her left knee for the last 1 year, esophageal tear repair done in 2018. Family history of coronary artery disease. She quit smoking. She lives in a high-rise with her daughter. The patient is known ALLERGIC TO SENA BEANS. The patient since admission had worked up for chest pain and cerebrovascular accident. CT scan of the brain revealed left basal ganglia training designer infarct exhibiting features of chronicity, septal asymmetric low attenuation within the left thalamus with no comparison studies available to determine stability and age indeterminate training designer infarct is consideration, more pronounced are patchy low attenuation within the bihemispheric periventricular subcortical white matter involving left cerebral hemisphere relative to the right, most likely on account of chronic microvascular ischemic changes, septal asymmetric increased density of the left carotid terminus relative to the right. No loss of pretty-white matter interface to suggest an acute cortical infarction in the left middle cerebral artery distribution and CT scan of cervical spine revealed multifactorial degenerative changes without evidence of any severe osseous central canal stenosis, mostly mild osseous encroachment on scattered neural foramina greatest degree on the right side at C4-C5. X-ray of left shoulder revealed mild left acromioclavicular joint degenerative changes and chest x-ray failed patchy opacities medial right lung base, likely atelectasis. PHYSICAL EXAMINATION: The patient on physical examination today revealed a middle-aged female. She is alert, oriented to time, place, person and circumstance and follows commands appropriately, moves all 4 extremities voluntarily where she had 4+/5 grade muscle strength with relatively increased weakness in left shoulder secondary to pain. She had tenderness to palpation over left shoulder. Mild crepitus on range of motion of left shoulder and right knee. The patient had 1-2+ and symmetrical deep tendon reflexes and she had equal perception of touch and pinprick sensation bilaterally. No significant difficulty with coordination using both upper and lower extremities. No obvious visual field cut or basal asymmetry. No difficulty with communication or cognition or swallowing noted. Her skin is intact at this time. She is requiring supervision while up walking using a roller walker without any loss of balance or dizziness complaints. ASSESSMENT: The patient with recent onset increased weakness and balance problems with radiological evidence of old infarct. No clinical evidence of any significant hemiplegia or weakness noted other than left shoulder where she sprained her left shoulder, superimposed on degenerative joint disease changes. Also, degenerative joint disease of right knee. The patient complains of more pain in her left knee than right knee, to obtain x-ray to rule out any loosening of prosthetic components. RECOMMENDATIONS: Agree with the plan for physical therapy and occupational therapy, home with home health or outpatient followup when medically stable to try physical modality to her left shoulder and to consider injecting her left shoulder if left shoulder pain is interfering with her mobility and self-care task. Right now, it is not. Dr. Stephens and Kristen, I appreciate asking me to participate in the care of this interesting patient. I will be glad to see her for followup with you on as needed basis. BRITTNEY CAPUTO MD DR: CACHORRO/brenda JOB#: [id number] / [id number]
--- NOTE | 2019-09-27 14:41 | PDOC ---
PROGRESS NOTES Assessment Assessment Gait instability. LE weakness. Fall. Chest pain. Peripheral neuropathy. Cellulitis, left LE. CAD s/p CABG. HTN. HLD. Left knee pain. Degenerative C-spine disease. 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 Morbid obesity. RECOMMENDATIONS/PLAN: Treat medical diseases. Consulted Dr. Garcia. OT/PT. Weight reduction. HISTORY OF PRESENT ILLNESS This is a 73-year-old female patient who was admitted due to complains of chest pain. Neurology consultation is requested for weakness and fall. She stated she had generalized weakness especially LE weakness for over 3 days and had a fall. She has left LE cellulitis more than a week that also contributes difficulties for her walking. Her cranial nerves and UE are not involved. 09/27/19: Able to walk with assistance. PAST MEDICAL HISTORY Cardiovascular: CAD, HTN, Hyperlipidemia, Other (angioedema related to sena beans) Pulmonary: No pertinent hx CENTRAL NERVOUS SYSTEM: Other (No pertinent history) GI: GERD, Other (esophageal tear) Heme/Onc: Anemia NOS ENT: No pertinent hx Renal/: Urinary Incontinence Endocrine: No pertinent hx PAST SURGICAL HISTORY CABG (x2 SVG to OM to RCA 2011), Total knee replacement (left), Other ([facility] 01/23/2019 with no intervention at [facility]; esophageal tear repari 2018) FAMILY HISTORY Coronary Artery Disease (aunt) SOCIAL HISTORY Smoke: Quit ALCOHOL: none Drugs: None Lives: with Family (daughter) ALLERGIES Uncoded Allergies: SENA BEANS (Allergy, Unknown, ANAPHYLACTIC, 09/26/19) MEDICATIONS: Refer to [facility] REVIEW OF SYSTEMS: Constitutional: Morbid obesity. Head: No traumatic brain or head injury. Skin: No edema, or rash. Ear: No infection. Eyes: No vision loss or color blindness. Nose: No bleeding or purulent discharges. Hearing: No hearing decrease. Neck: No injury. Breast: No history of cancer, masses,or discharges. Cardiac: CAD, s/p CABG, HTN, HLD. Pulmonary: SOB. GI: No GI ulcer, GI bleeding. Urinary/genital: UTI. Endocrinologic: Morbid obesity. Skeletomuscular: Generalized weakness. Neurological: see HP. Psychiatric: Denies drug use/abuse. Otherwise, not [id number] review of systems. PHYSICAL EXAMINATION: General appearance is in subacute distress. HEENT: Normocephalic and nontraumatic. Eyes, nose, ears, and throat are unremarkable. Neck is supple. No lymphadenopathy. No crepitus. Cardiovascular: S1, S2, regular rate and rhythm. Pulmonary: Clear to auscultation bilaterally. Abdomen: Bowel sounds are positive. Extremities: No rash, lesions, or edema. No restriction of range of motion NEUROLOGICAL EXAMINATION: Alert Oriented to time, place and person. PERRL. EOMI. CN: no focal findings. Muscle tone: within normal. Muscle strength: 5- DTR: 2- Lefr knee 1- Plantar reflex: Flexor response bilaterally Gait: Able to walk with assistance. Sensory exam: no abnormal findings. No cerebellar signs elicited. F-T-N test fine. Objective Objective Vital Signs Date Time Temp Pulse Resp B/P (MAP) Pulse Ox O2 Delivery O2 Flow Rate FiO2 09/27/19 10:48 98.7 68 18 132/61 (84) 93 Room Air 98.7 Intake and Output 09/27/19 07:00 Intake Total 920 ml Output Total 1100 ml Balance -180 ml Intake Oral 920 ml Output Urine Total 1100 ml # Voids 2 Vitals Signs Vitals VS - Last 72 Hours, by Label Date Time Temp Pulse Resp B/P (MAP) Pulse Ox O2 Delivery O2 Flow Rate FiO2 09/27/19 10:48 98.7 68 18 132/61 (84) 93 Room Air 98.7 09/27/19 10:12 18 93 Room Air 09/27/19 09:12 18 93 Room Air 09/27/19 09:08 61 159/70 09/27/19 09:08 61 159/70 09/27/19 08:00 Room Air 09/27/19 07:00 98.7 61 18 159/70 (99) 93 Room Air 98.7 09/27/19 02:56 98.7 67 20 174/72 (106) 94 Room Air 98.7 09/26/19 23:06 98.5 66 18 132/66 (88) 100 Room Air 98.5 09/26/19 20:50 74 155/73 09/26/19 20:00 Room Air 09/26/19 19:30 98.3 74 20 155/73 (100) 94 Room Air 98.3 09/26/19 17:25 62 148/66 09/26/19 15:00 97.8 62 18 148/66 (93) 91 Room Air 97.8 09/26/19 11:00 98.2 59 18 131/60 (83) 91 Room Air 98.2 09/26/19 08:31 93 Room Air 09/26/19 08:11 71 151/65 09/26/19 08:10 71 151/65 09/26/19 08:00 Room Air 09/26/19 07:00 98.1 58 18 151/65 (93) 91 Room Air 98.1 Medication Medications Current Medications Diclofenac Sodium (Voltaren) 1 pablito BID TP Last administered on 09/27/19at 13:31; Start 09/27/19 at 11:00 Lactobacillus Rhamnosus (Culturelle) 1 cap BID PO ; Start 09/27/19 at 21:00 Magnesium Oxide (Magnesium Oxide) 400 mg DAILY PO ; Start 09/27/19 at 09:00; Stop 09/26/19 at 11:36; Status DC Comment Review of Relevant I have reviewed the following items terrance (where applicable) has been applied. JARRETT CH MD Sep 27, 2019 14:41
[2019-09-27 15:00] VITALS: BP 149/67
[2019-09-27 19:00] VITALS: BP 154/68
[2019-09-27] MEDS: ENOXAPARIN 40 MG/0.4 ML SYRINGE. SQ SCH (20:38)
[2019-09-27] MEDS: LACTOBACILLUS RHAMNOSUS GG 1 CAPSULE. PO SCH (20:38)
[2019-09-27] MEDS: SIMVASTATIN 20 MG TABLET PO SCH (20:38)
[2019-09-27] MEDS: TERAZOSIN 1 MG CAPSULE. PO SCH (20:38)
[2019-09-27] MEDS: traZODone 100 MG TABLET. PO SCH (20:42)
[2019-09-27 22:35] VITALS: BP 160/74
[2019-09-28 03:12] VITALS: BP 140/62
[2019-09-28] MEDS: PANTOPRAZOLE 40 MG TABLET.DR. PO SCH (05:45)
[2019-09-28 07:00] VITALS: BP 175/74
[2019-09-28] MEDS: GABAPENTIN 300 MG CAPSULE. PO SCH (08:41)
[2019-09-28] MEDS: LACTOBACILLUS RHAMNOSUS GG 1 CAPSULE. PO SCH (08:41)
[2019-09-28] MEDS: POTASSIUM CHLORIDE 20 MEQ TABLET.ER. PO SCH (08:41)
[2019-09-28] MEDS: FLUoxetine HCL 20 MG CAPSULE PO SCH (08:42)
[2019-09-28] MEDS: traMADol 50 MG TABLET PO PRN (08:42)
[2019-09-28] MEDS: CARVEDILOL 12.5 MG TABLET. PO SCH (08:42)
[2019-09-28] MEDS: ASPIRIN CHEWABLE 81 MG TABLET. PO SCH (08:42)
[2019-09-28] MEDS: FUROSEMIDE 40 MG TABLET. PO SCH (08:43)
[2019-09-28] MEDS: PRENATAL MULTIVITAMIN TABLET. PO SCH (08:43)
[2019-09-28] MEDS: MAGNESIUM OXIDE 400 MG TABLET PO SCH (08:43)
[2019-09-28] MEDS: amLODIPine BESYLATE 10 MG TABLET PO SCH (08:43)
[2019-09-28] MEDS: ENOXAPARIN 40 MG/0.4 ML SYRINGE. SQ SCH (08:43)
[2019-09-28] MEDS: DOXYCYCLINE HYCLATE 100 MG TABLET PO SCH (08:43)
[2019-09-28] MEDS: DICLOFENAC SODIUM 1% TOPICAL GEL 100GM TUBE. TP SCH (08:44)
--- NOTE | 2019-09-28 10:36 | PDOC ---
PROGRESS NOTES Subjective Subjective No new complaints. Objective Objective Vital Signs Date Time Temp Pulse Resp B/P (MAP) Pulse Ox O2 Delivery O2 Flow Rate FiO2 09/28/19 08:43 68 175/74 09/28/19 08:42 18 95 Room Air 09/28/19 07:00 98.1 98.1 Intake and Output 09/28/19 07:00 Intake Total 750 ml Output Total 1170 ml Balance -420 ml Intake Oral 750 ml Output Urine Total 1170 ml # Voids 1 Physical Exam Physical Exam She is alert,sitting in bedside recliner and she got up and walked with roller walker under supervision with wide based gait. She is moving left shoulder better. Plan Plan of Care To SNF or home with home health follow up when medically stable. Comment Review of Relevant I have reviewed the following items terrance (where applicable) has been applied. Medications Current Medications Ondansetron HCl (Zofran) 4 mg PRN Q4HRS PRN IV NAUSEA/VOMITING; Start 09/25/19 at 21:45 Zolpidem Tartrate (Ambien) 5 mg PRN QHS PRN PO INSOMNIA; Start 09/25/19 at 21:45 Acetaminophen (Tylenol) 650 mg PRN Q4HRS PRN PO TEMP OVER 100.4F OR MILD PAIN Last administered on 09/26/19at 08:12; Start 09/25/19 at 21:45 Docusate Sodium (Colace) 100 mg PRN BID PRN PO CONSTIPATION; Start 09/25/19 at 21:45 Albuterol Sulfate (Ventolin Neb Soln) 2.5 mg PRN Q4HRS PRN NEB SHORTNESS OF BREATH; Start 09/25/19 at 21:45 Guaifenesin (Robitussin) 200 mg PRN Q4HRS PRN PO COUGH; Start 09/25/19 at 21:45 Lorazepam (Ativan) 0.5 mg PRN Q4HRS PRN PO ANXIETY / AGITATION; Start 09/25/19 at 21:45 Enoxaparin Sodium (Lovenox 40mg Syringe) 40 mg Q24H SQ Last administered on 09/26/19at 20:50; Start 09/25/19 at 22:00; Stop 09/27/19 at 16:17; Status DC Amlodipine Besylate (Norvasc) 10 mg DAILY PO Last administered on 09/28/19 08:43; Start 09/26/19 at 09:00 Aspirin (Children'S Aspirin) 81 mg DAILYWBKFT PO Last administered on 09/28/19 08:42; Start 09/26/19 at 08:00 Furosemide (Lasix) 40 mg DAILY PO Last administered on 09/28/19 08:43; Start 09/26/19 at 09:00 Pantoprazole Sodium (Protonix) 40 mg DAILYAC PO Last administered on 09/28/19 05:45; Start 09/26/19 at 07:30 Potassium Chloride (Klor-Con) 20 meq DAILYWBKFT PO Last administered on 09/28/19 08:41; Start 09/26/19 at 08:00 Simvastatin (Zocor) 20 mg HS PO Last administered on 09/27/19 20:38; Start 09/25/19 at 22:45 Tramadol HCl (Ultram) 50 mg PRN Q6HRS PRN PO MODERATE - SEVERE PAIN Last administered on 09/28/19 08:42; Start 09/25/19 at 21:45 Trazodone HCl (Desyrel) 100 mg HS PO Last administered on 09/27/19 20:42; Start 09/25/19 at 22:45 Carvedilol (Coreg) 12.5 mg BIDWMEALS PO Last administered on 09/28/19 08:42; Start 09/26/19 at 08:00 Fluoxetine HCl (PROzac) 40 mg DAILY PO Last administered on 09/28/19 08:42; Start 09/26/19 at 09:00 Gabapentin (Neurontin) 300 mg BID PO Last administered on 09/28/19 08:41; Start 09/25/19 at 22:45 Multivit/ Folic Acid/Iron (Multivitamin ) 1 tab DAILY PO Last administered on 09/28/19 08:43; Start 09/26/19 at 09:00 Terazosin HCl (Hytrin) 1 mg HS PO Last administered on 09/27/19 20:38; Start 09/25/19 at 22:45 Furosemide (Lasix) 40 mg 1X ONCE IVP Last administered on 09/25/19 23:56; Start 09/25/19 at 22:00; Stop 09/25/19 at 22:01; Status DC Ondansetron HCl (Zofran) 4 mg PRN Q8HRS PRN IV NAUSEA/VOMITING; Start 09/25/19 at 22:00; Stop 09/26/19 at 21:59; Status DC Doxycycline Hyclate (Vibra-Tab) 100 mg BID PO Last administered on 09/28/19at 08:43; Start 09/26/19 at 09:00 Magnesium Oxide (Magnesium Oxide) 400 mg DAILY PO ; Start 09/27/19 at 09:00; Stop 09/26/19 at 11:36; Status DC Magnesium Oxide (Magnesium Oxide) 400 mg DAILY PO Last administered on 09/28/19at 08:43; Start 09/26/19 at 11:45 Lactobacillus Rhamnosus (Culturelle) 1 cap BID PO Last administered on 09/28/19at 08:41; Start 09/27/19 at 21:00 Diclofenac Sodium (Voltaren) 1 pablito BID TP Last administered on 09/28/19at 08:44; Start 09/27/19 at 11:00 Enoxaparin Sodium (Lovenox 40mg Syringe) 40 mg Q12HR SQ Last administered on 09/28/19at 08:43; Start 09/27/19 at 21:00 Active Scripts Active Reported Magnesium Oxide 250 Mg Tablet 250 Mg PO DAILY Doxycycline Hyclate 100 Mg Tablet.dr 1 Tab PO BID 7 Days Carvedilol 25 Mg Tablet 12.5 Mg PO BIDWMEALS Furosemide 40 Mg Tablet 40 Mg PO DAILY Pantoprazole Sodium (Pantoprazole Sodium) 40 Mg Tablet.dr 40 Mg PO DAILYAC Simvastatin 20 Mg Tablet 20 Mg PO HS Trazodone Hcl 100 Mg Tablet 100 Mg PO HS Fluoxetine Hcl 40 Mg Capsule 40 Mg PO DAILY Amlodipine Besylate 10 Mg Tablet 10 Mg PO DAILY Aspirin 81 Mg Tab.chew 81 Mg PO DAILY Tramadol Hcl 50 Mg Tablet 50 Mg PO Q6HRS PRN Potassium Chloride (Potassium Chloride) 20 Meq Tablet.er 20 Meq PO DAILY Gabapentin 600 Mg Tablet 300 Mg PO BID Multi Vitamin Daily (Multivitamin) 1 Each Tablet 1 Tab PO DAILY 30 Days [terozosin] 1 Mg PO HS Vitals/I & O Vital Sign - Last 24 Hours 09/27/19 09/27/19 09/27/19 09/27/19 10:48 15:00 17:44 19:00 Temp 98.7 97.9 97.9 98.7 97.9 97.9 Pulse 68 65 65 68 Resp 18 18 16 B/P (MAP) 132/61 (84) 149/67 (94) 149/67 154/68 (96) Pulse Ox 93 94 92 O2 Delivery Room Air Room Air Room Air 09/27/19 09/27/19 09/27/19 09/28/19 19:05 20:38 22:35 03:12 Temp 98.0 98.2 98.0 98.2 Pulse 68 60 60 Resp 18 16 B/P (MAP) 154/68 160/74 (102) 140/62 (88) Pulse Ox 94 97 O2 Delivery Room Air Room Air Room Air 09/28/19 09/28/19 09/28/19 09/28/19 07:00 08:42 08:42 08:43 Temp 98.1 98.1 Pulse 68 68 68 Resp 16 18 B/P (MAP) 175/74 (107) 175/74 175/74 Pulse Ox 95 95 O2 Delivery Room Air Room Air Intake and Output 09/27/19 09/27/19 09/28/19 15:00 23:00 07:00 Intake Total 250 ml 300 ml 200 ml Output Total 270 ml 600 ml 300 ml Balance -20 ml -300 ml -100 ml BRITTNEY CAPUTO MD Sep 28, 2019 10:35
[2019-09-28 11:00] VITALS: BP 123/58
--- NOTE | 2019-09-28 11:26 | PDOC ---
[facility] PROGRESS NOTE Chief Complaint Chief Complaint Chest pain CAD s/p CABG Old and possible new Small strokes Gait instability. LE weakness. Fall. Chest pain. Peripheral neuropathy. Cellulitis, left LE. CAD s/p CABG. HTN. HLD. Degenerative C-spine disease. 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 Morbid obesity. History of Present Illness History of Present Illness 09/28/2019 Pt seen and examined Pt is a pleasant lady in high spirits today Chart Reviewed Discussed w/ RN Discussed w/ specialists, their input is greatly appreciated [id number] Patient seen and examined Resting with no apparent distress Discussed with RN Chart reviewed Appreciate neurology input Awaiting consultation with physiatry 09/26/19 Pt seen and examined laying in bed pleasant and conversational. Admitted for atypical chest pain yesterday. Echo obtained yesterday-await results. CXR yesterday showed medial right base atelectasis. Troponins negative, EKG normal. INR 1.1. Mg low at 1.7 will replace. Spoke with RN and reviewed chart. Cardiology consulted and cleared ok to discharge. Vitals/I&O Vitals/I&O: Vital Signs Date Time Temp Pulse Resp B/P (MAP) Pulse Ox O2 Delivery O2 Flow Rate FiO2 09/28/19 11:00 97.6 62 16 123/58 (79) 93 Room Air 97.6 I & O 09/27/19 09/27/19 09/28/19 15:00 23:00 07:00 Intake Total 250 ml 300 ml 200 ml Output Total 270 ml 600 ml 300 ml Balance -20 ml -300 ml -100 ml Physical Exam General: No acute distress Heart: Regular rate (SR no ectopies), Normal S1, Normal S2, No murmurs Lungs: Clear Abdomen: Soft, No tenderness Extremities: No cyanosis, Other (2+ bilateral pitting edema) Skin: No breakdown, No significant lesion Review of Systems Review of Systems: GEN: No abnormal weight changes CV: No palpitations PULM: SOB Assessment and Plan Assessmemt and Plan Gait instability. Possible old and new strokes LE weakness. Fall. Chest pain. Peripheral neuropathy. Cellulitis, left LE. CAD s/p CABG. HTN. HLD. Degenerative C-spine disease. 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 Morbid obesity. Plan hall monitor PT OT Await physiatry input Home meds DVT prophylaxis Trend labs DC today or in AM to SNU pending Specialist clearing pt Specialist input greatly appreciated Comment Review of Relevant I have reviewed the following items terrance (where applicable) has been applied. Medications: Current Medications Medications (Trade) Dose Ordered Sig/Carmelo Route PRN Reason Start Time Stop Time Status Last Admin Dose Admin Lactobacillus Rhamnosus (Culturelle) 1 cap BID PO 09/27/19 21:00 09/28/19 08:41 Enoxaparin Sodium (Lovenox 40mg Syringe) 40 mg Q12HR SQ 09/27/19 21:00 09/28/19 08:43 BARNEY RICH III DO Sep 28, 2019 11:26
--- NOTE | 2019-09-28 11:36 | SNU/HH DC ---
DISCHARGE ORDERS DISCHARGE INFORMATION: CONDITION ON DISCHARGE: Stable CODE STATUS: Code Status: Full SHELTER: SNF STAY <30 DAYS: Yes HOSPICE: HOSPICE: No HOSPICE EVAL & TREAT: No LTAC: ADMIT TO LTAC: No POST DISCHARGE ORDERS: ACTIVITY ORDERS: Activity as tolerated WEIGHT BEARING STATUS: As tolerated DIET AFTER DISCHARGE: Cardiac WOUND/INCISION CARE: No wound care needed CHECKS AFTER DISCHARGE: CHECKS AFTER DISCHARGE: Check blood press - daily, Check your Temp as needed FOLLOW-UP: ADDITIONAL FOLLOW-UP: Primary care provider in 2 weeks TREATMENT/EQUIPMENT ORDERS: ADAPTIVE EQUIPMENT NEEDED: None Occupational Therapy For: Evaluation/Treatment DISCHARGE MEDICATIONS: Home Meds Reported Medications Magnesium Oxide (MAGNESIUM OXIDE) 250 Mg Tablet, 250 MG PO DAILY for replacement, TAB 09/26/19 Doxycycline Hyclate (DOXYCYCLINE HYCLATE) 100 Mg Tablet.dr, 1 TAB PO BID for cellulitis for 7 Days, #14 TAB 09/26/19 Carvedilol (CARVEDILOL) 25 Mg Tablet, 12.5 MG PO BIDWMEALS for CARDIAC, TAB 05/27/19 Furosemide (FUROSEMIDE) 40 Mg Tablet, 40 MG PO DAILY for htn, TAB 05/27/19 Pantoprazole Sodium (PANTOPRAZOLE SODIUM ) 40 Mg Tablet.dr, 40 MG PO DAILYAC for GERD, TAB 05/27/19 Simvastatin (SIMVASTATIN) 20 Mg Tablet, 20 MG PO HS for FOR CHOLESTEROL, #30 TAB 0 Refills 05/27/19 Trazodone Hcl (TRAZODONE HCL) 100 Mg Tablet, 100 MG PO HS for sleep, TAB 05/27/19 Fluoxetine Hcl (FLUOXETINE HCL) 40 Mg Capsule, 40 MG PO DAILY for depression, CAP 05/27/19 Amlodipine Besylate (AMLODIPINE BESYLATE) 10 Mg Tablet, 10 MG PO DAILY for htn, TAB 05/27/19 Aspirin (ASPIRIN) 81 Mg Tab.chew, 81 MG PO DAILY for heart, TAB.CHEW 05/27/19 Tramadol Hcl (TRAMADOL HCL) 50 Mg Tablet, 50 MG PO Q6HRS PRN for PAIN, TAB 05/27/19 Potassium Chloride (POTASSIUM CHLORIDE ) 20 Meq Tablet.er, 20 MEQ PO DAILY for lasix, TAB.SR 05/27/19 Gabapentin (GABAPENTIN) 600 Mg Tablet, 300 MG PO BID for NEUROGENIC PAIN, TAB 05/27/19 Multivitamin (MULTI VITAMIN DAILY) 1 Each Tablet, 1 TAB PO DAILY for health for 30 Days, #30 TAB 0 Refills 05/27/19 [terozosin] No Conflict Check, 1 MG PO HS for urinary retention 05/27/19 BARNEY RICH III DO Sep 28, 2019 11:36
--- NOTE | 2019-09-28 13:32 | NUR ---
SS following up with discharge planning. Pt accepted at [facility], ; fax [phone], pending insurance authorization. Discharge orders received for halfway unit. SS phoned and faxed discharge orders to [facility]. SS will await insurance authorization and will proceed accordingly with discharge planning.
--- NOTE | 2019-09-28 13:43 | PDOC ---
PROGRESS NOTES Assessment Assessment Gait instability. LE weakness. Fall. Chest pain. Peripheral neuropathy. Cellulitis, left LE. CAD s/p CABG. HTN. HLD. Left knee pain. Degenerative C-spine disease. 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 Morbid obesity. RECOMMENDATIONS/PLAN: Treat medical diseases. Consulted Dr. Garcia. OT/PT. Weight reduction. Exercise. Diet. HISTORY OF PRESENT ILLNESS This is a 73-year-old female patient who was admitted due to complains of chest pain. Neurology consultation is requested for weakness and fall. She stated she had generalized weakness especially LE weakness for over 3 days and had a fall. She has left LE cellulitis more than a week that also contributes difficulties for her walking. Her cranial nerves and UE are not involved. 09/28/19: Able to walk with assistance. left knee pain improved. PAST MEDICAL HISTORY Cardiovascular: CAD, HTN, Hyperlipidemia, Other (angioedema related to sena beans) Pulmonary: No pertinent hx CENTRAL NERVOUS SYSTEM: Other (No pertinent history) GI: GERD, Other (esophageal tear) Heme/Onc: Anemia NOS ENT: No pertinent hx Renal/: Urinary Incontinence Endocrine: No pertinent hx PAST SURGICAL HISTORY CABG (x2 SVG to OM to RCA 2011), Total knee replacement (left), Other ([facility] 01/23/2019 with no intervention at [facility]; esophageal tear repari 2018) FAMILY HISTORY Coronary Artery Disease (aunt) SOCIAL HISTORY Smoke: Quit ALCOHOL: none Drugs: None Lives: with Family (daughter) ALLERGIES Uncoded Allergies: SENA BEANS (Allergy, Unknown, ANAPHYLACTIC, 09/26/19) MEDICATIONS: Refer to [facility] REVIEW OF SYSTEMS: Constitutional: Morbid obesity. Head: No traumatic brain or head injury. Skin: No edema, or rash. Ear: No infection. Eyes: No vision loss or color blindness. Nose: No bleeding or purulent discharges. Hearing: No hearing decrease. Neck: No injury. Breast: No history of cancer, masses,or discharges. Cardiac: CAD, s/p CABG, HTN, HLD. Pulmonary: SOB. GI: No GI ulcer, GI bleeding. Urinary/genital: UTI. Endocrinologic: Morbid obesity. Skeletomuscular: Generalized weakness. Neurological: see HP. Psychiatric: Denies drug use/abuse. Otherwise, not [id number] review of systems. PHYSICAL EXAMINATION: General appearance is in subacute distress. HEENT: Normocephalic and nontraumatic. Eyes, nose, ears, and throat are unremarkable. Neck is supple. No lymphadenopathy. No crepitus. Cardiovascular: S1, S2, regular rate and rhythm. Pulmonary: Clear to auscultation bilaterally. Abdomen: Bowel sounds are positive. Extremities: No rash, lesions, or edema. No restriction of range of motion NEUROLOGICAL EXAMINATION: Alert Oriented to time, place and person. PERRL. EOMI. CN: no focal findings. Muscle tone: within normal. Muscle strength: 5- DTR: 2- Left knee 1- Plantar reflex: Flexor response bilaterally Gait: Able to walk with assistance. Sensory exam: no abnormal findings. No cerebellar signs elicited. F-T-N test fine. Objective Objective Vital Signs Date Time Temp Pulse Resp B/P (MAP) Pulse Ox O2 Delivery O2 Flow Rate FiO2 09/28/19 11:00 97.6 62 16 123/58 (79) 93 Room Air 97.6 Intake and Output 09/28/19 06:59 Intake Total 750 ml Output Total 1170 ml Balance -420 ml Intake Oral 750 ml Output Urine Total 1170 ml # Voids 1 Vitals Signs Vitals VS - Last 72 Hours, by Label Date Time Temp Pulse Resp B/P (MAP) Pulse Ox O2 Delivery O2 Flow Rate FiO2 09/28/19 11:00 97.6 62 16 123/58 (79) 93 Room Air 97.6 09/28/19 09:42 18 95 Room Air 09/28/19 08:43 68 175/74 09/28/19 08:42 68 175/74 09/28/19 08:42 18 95 Room Air 09/28/19 08:00 Room Air 09/28/19 07:00 98.1 68 16 175/74 (107) 95 Room Air 98.1 09/28/19 03:12 98.2 60 16 140/62 (88) 97 Room Air 98.2 09/27/19 22:35 98.0 60 18 160/74 (102) 94 Room Air 98.0 09/27/19 20:38 68 154/68 09/27/19 19:05 Room Air 09/27/19 19:00 97.9 68 16 154/68 (96) 92 Room Air 97.9 09/27/19 17:44 65 149/67 09/27/19 15:00 97.9 65 18 149/67 (94) 94 Room Air 97.9 09/27/19 10:48 98.7 68 18 132/61 (84) 93 Room Air 98.7 09/27/19 10:12 18 93 Room Air 09/27/19 09:12 18 93 Room Air 09/27/19 09:08 61 159/70 09/27/19 09:08 61 159/70 09/27/19 08:00 Room Air 09/27/19 07:00 98.7 61 18 159/70 (99) 93 Room Air 98.7 Medication Medications Current Medications Enoxaparin Sodium (Lovenox 40mg Syringe) 40 mg Q12HR SQ Last administered on 09/28/19at 08:43; Start 09/27/19 at 21:00 Lactobacillus Rhamnosus (Culturelle) 1 cap BID PO Last administered on 09/28/19at 08:41; Start 09/27/19 at 21:00 Comment Review of Relevant I have reviewed the following items terrance (where applicable) has been applied. JARRETT CH MD Sep 28, 2019 13:43
[2019-09-28 15:00] VITALS: BP 146/66
--- NOTE | 2019-09-28 16:09 | NUR ---
SS following up with discharge planning. Insurance authorization received for [facility], ; fax [phone]. Pt will discharge today and go to [facility] at 17[facility]. [place] to provide transportation. Pt, pt's RN, and pt's daughter notified.
--- NOTE | 2019-09-28 17:26 | NUR ---
Discharge Note: [facility] Discharge instructions and discharge home medications reviewed with Patient and a copy given. All questions have been answered and understanding verbalized. The following instructions and handouts were given: Patient discharged to [facility] with transport via facility transport
== END 2019-09-28 17:28 | DRG 291 ==
LOC: ER 19:26 → 2 NORTH 22:08
PROVIDERS: ADMIT Internal Medicine; ATTEND Internal Medicine
DX: I13.0 Hypertensive heart and chronic kidney disease with heart failure and stage 1 through stage 4 chronic kidney disease, or unspecified chronic kidney disease (principal); I50.33 Acute on chronic diastolic (congestive) heart failure; J98.11 Atelectasis; L03.116 Cellulitis of left lower limb; Z68.41 Body mass index [BMI] 40.0-44.9, adult; K21.9 Gastro-esophageal reflux disease without esophagitis; E66.01 Morbid (severe) obesity due to excess calories; E78.00 Pure hypercholesterolemia, unspecified; E78.5 Hyperlipidemia, unspecified; E83.42 Hypomagnesemia; G47.33 Obstructive sleep apnea (adult) (pediatric); G62.9 Polyneuropathy, unspecified; I25.10 Atherosclerotic heart disease of native coronary artery without angina pectoris; F32.9 Major depressive disorder, single episode, unspecified; D64.9 Anemia, unspecified; I50.9 Heart failure, unspecified; M17.11 Unilateral primary osteoarthritis, right knee; Z96.652 Presence of left artificial knee joint; W01.0XXA Fall on same level from slipping, tripping and stumbling without subsequent striking against object, initial encounter; Z82.49 Family history of ischemic heart disease and other diseases of the circulatory system; Z87.891 Personal history of nicotine dependence; Z95.1 Presence of aortocoronary bypass graft; Z90.49 Acquired absence of other specified parts of digestive tract; I25.2 Old myocardial infarction; Z91.048 Other nonmedicinal substance allergy status; Y93.89 Activity, other specified; Y92.89 Other specified places as the place of occurrence of the external cause; Y99.8 Other external cause status; Z79.82 Long term (current) use of aspirin; Z79.899 Other long term (current) drug therapy
CPT/HCPCS: 36415; 70450; 71045; 72125; 73030; 73560; 80053; 80061; 82550; 82553; 82607; 83735; 83880; 84443; 84484; 85025; 85610; 93005; 94760; J1650; J1940; 97110; 97116; 97530; 97535; 99285-25; G0378

== ENCOUNTER 2021-05-01 20:57 | Observation (INO) | payer OTHER, MEDICAID ==
[~2021-05-01] VITALS: Ht 157.5 cm; Wt 92.6 kg
[~2021-05-01 20:57] MED LIST changes: +AMLO-187 PO; -AMLO10TA8 PO; +DOXY-96 PO; +MAGN250T9 PO
[2021-05-01] MEDS ORDERED: NITROGLYCERIN SUBLINGUAL 0.4 MG BOTTLE OF 25. SL PRN ×2 (21:15→22:00)
[2021-05-01] MEDS ORDERED: MORPHINE SULFATE 4 MG/ML INJ. IV/SQ PRN (21:15)
--- NOTE | 2021-05-01 21:15 | PHYS DOC ---
Past Medical History Past Medical History: Depression, High Cholesterol, Hypertension, NH, Renal Failure, Other Additional Past Medical Histor: neuropathy,CELLULITIS Past Surgical History: Cholecystectomy, Coronary Bypass Surgery, Knee Replacement, Other Additional Past Surgical Histo: esophageal repair Smoking Status: Former Smoker Alcohol Use: None Drug Use: None General Adult EDM: Chief Complaint: CHEST PAIN-CARDIAC NATURE HPI: HPI: Patient is a 75 year old female with a history of hypertension, high cholesterol, depression, NH, who presents to the ED today complaining of sharp substernal chest pain that began this evening while playing cards with the family. Patient denies anything specifically exacerbating or relieving the pain. Patient states EMS gave her aspirin 325 mg with minimal relief. Review of Systems: Review of Systems: Constitutional: Denies fever or chills. [] Eyes: Denies change in visual acuity. [] HENT: Denies nasal congestion or sore throat. [] Respiratory: Denies cough or shortness of breath. [] Cardiovascular: Reports substernal chest pain GI: Denies abdominal pain, nausea, vomiting, bloody stools or diarrhea. [] : Denies dysuria. [] Musculoskeletal: Denies back pain or joint pain. [] Integument: Denies rash. [] Neurologic: Denies headache, focal weakness or sensory changes. [] Endocrine: Denies polyuria or polydipsia. [] ] Psychiatric: Denies depression or anxiety. [] Heart Score: C/O Chest Pain: Yes HEART Score for Chest Pain: HEART Score for Chest Pain Response (Comments) Value History Slighlty/Non-Suspicious 0 ECG Normal 0 Age > 65 2 Risk Factors >3 Risk Factors or Hx CAD 2 Troponin < Normal Limit 0 Total 4 Risk Factors: Risk Factors: DM, Current or recent (<one month) smoker, HTN, HLP, family history of CAD, obesity. Risk Scores: Score 0 - 3: 2.5% MACE over next 6 weeks - Discharge Home Score 4 - 6: 20.3% MACE over next 6 weeks - Admit for Clinical Observation Score 7 - 10: 72.7% MACE over next 6 weeks - Early Invasive Strategies Current Medications: Current Medications Medications (Trade) Dose Ordered Sig/Carmelo Start Time Stop Time Status Last Admin Dose Admin Morphine Sulfate (Morphine Sulfate) 4 mg PRN Q15MIN PRN 05/01/21 21:15 05/02/21 21:14 Nitroglycerin (Nitrostat) 0.4 mg PRN Q5MIN PRN 05/01/21 21:15 05/02/21 21:14 Allergies: Allergies: Allergies Coded Allergies Type Severity Reaction Last Updated Verified medina Allergy Severe ANAPHYLAXIS SENA BEANS 09/28/19 Yes No Known Medication Allergies Allergy Unknown 09/27/19 Yes Physical Exam: PE: Constitutional: Well developed, well nourished, no acute distress, non-toxic appearance. [] HENT: Normocephalic, atraumatic, bilateral external ears normal, oropharynx moist, no oral exudates, nose normal. [] Eyes: PERRLA, EOMI, conjunctiva normal, no discharge. [] Neck: Normal range of motion, no tenderness, supple, no stridor. [] Cardiovascular: Old healed surgical incision noted midline chest. Heart rate regular rhythm Lungs & Thorax: Bilateral breath sounds clear to auscultation [] Abdomen: Bowel sounds normal, soft, no tenderness, no masses, no pulsatile masses. [] Skin: Warm, dry, no erythema, no rash. [] Back: No tenderness, no CVA tenderness. [] Extremities: No tenderness, no cyanosis, no clubbing, ROM intact, no edema. [] Neurologic: Alert and oriented X 3, normal motor function, normal sensory function, no focal deficits noted. [] Psychologic: Affect normal, judgement normal, mood normal. [] Current Patient Data: Vital Signs: Vital Signs Date Time Temp Pulse Resp B/P (MAP) Pulse Ox O2 Delivery O2 Flow Rate FiO2 05/01/21 20:58 98.7 18 18 130/61 (84) 100 Room Air 98.7 EKG: EK interpreted by Dr. Dominguez sinus rhythm heart rate 52 no STEMI [] Radiology/Procedures: Radiology/Procedures: [] Course & Med Decision Making: Course & Med Decision Making Pertinent Labs and Imaging studies reviewed. (See chart for details) This a 75-year-old female patient presented to the ED today complaining of chest pain that began a couple minutes prior to coming to the ED. EKG is negative, initial troponin is negative, CBC with no acute findings, CMP with creatinine of 2.0, BUN is normal, history of kidney disease. Spoke with Dr. Villalobos who accepted patient for admission Routine consult placed for cardiology Routine consult placed for nephrology Nicky Disclaimer: Nicky Disclaimer: This electronic medical record was generated, in whole or in part, using a voice recognition dictation system. Departure Departure Impression: Primary Impression: Chest pain Qualified Codes: R07.9 - Chest pain, unspecified Additional Impression: Acute on chronic renal failure Qualified Codes: N17.9 - Acute kidney failure, unspecified; N18.9 - Chronic kidney disease, unspecified Disposition: ADMITTED INPATIENT Condition: STABLE Referrals: TERRY HICKMAN MD (PCP) RANDEE COX CEILING INSTALLER May 01, 2021 21:15
[2021-05-01 21:22] LABS: BASO % 0 % (0-3); EOS % 0 % (0-3); HEMATOCRIT 37.3 % (36.0-47.0); HEMOGLOBIN 13.1 g/dL (12.0-15.5); LYMPH % 30 % (24-48); MEAN CORPUSCULAR HEMOGLOBIN 33 pg (25-35); MEAN CORPUSCULAR HGB CONC 35 g/dL (31-37); MEAN CORPUSCULAR VOLUME 95 fL (79-100); MONO # 0.8 x10^3/uL (0.0-1.1); MONO % 13 % (0-9); NEUT # 3.8 x10^3/uL (1.8-7.7); NEUT % 58 % (31-73); PLATELET COUNT 228 x10^3/uL (140-400); RED BLOOD COUNT 3.95 x10^6/uL (3.50-5.40); RED CELL DISTRIBUTION WIDTH 12.6 % (11.5-14.5); WHITE BLOOD COUNT 6.6 x10^3/uL (4.0-11.0)
[2021-05-01 21:34] LABS: CALCIUM 8.4 mg/dL (8.5-10.1); GFR 24.4; POTASSIUM 4.1 mmol/L (3.5-5.1)
[2021-05-01 21:40] LABS: ALBUMIN 3.6 g/dL (3.4-5.0); ALBUMIN/GLOBULIN RATIO 1.3 (1.0-1.7); TOTAL BILIRUBIN 0.4 mg/dL (0.2-1.0); TOTAL PROTEIN 6.3 g/dL (6.4-8.2)
[2021-05-01] MEDS ORDERED: ONDANSETRON PF 4 MG/2 ML VIAL. IVP PRN (22:00)
[2021-05-01] MEDS ORDERED: MORPHINE SULFATE 4 MG/ML INJ. IVP PRN (22:00)
--- NOTE | 2021-05-01 22:42 | RAD ---
Exam: Chest one view INDICATION: Chest pain TECHNIQUE: Frontal view of the chest Comparisons: 09/25/2019 FINDINGS: Sternotomy wires are noted. The cardiomediastinal silhouette and pulmonary vessels are within normal limits. The lung and pleural spaces are clear. IMPRESSION: No acute pulmonary process. Electronically signed by: Ricardo Rosenberg MD (05/01/2021 10:40 PM) DAVID
[2021-05-02 01:00] VITALS: BP 134/63
[2021-05-02 03:00] VITALS: BP 97/48
[2021-05-02 05:14] LABS: ALBUMIN 3.1 g/dL (3.4-5.0); ALBUMIN/GLOBULIN RATIO 1.3 (1.0-1.7); CREATININE 1.6 mg/dL (0.6-1.0); GFR 31.6; POTASSIUM 3.4 mmol/L (3.5-5.1); TOTAL BILIRUBIN 0.3 mg/dL (0.2-1.0); TOTAL PROTEIN 5.5 g/dL (6.4-8.2)
--- NOTE | 2021-05-02 06:22 | EKG ---
[facility] [address] [place] [address] Test Date: 2021-05-01 Test Time: 21:04:05 Pat Name: CRYS SANON Department: Room: [facility] Gender: F Slab Inspector: : 1945 Requested By: RANDEE COX Order Number: [id number] Reading MD: Chilango Mcgrath Measurements Intervals [place] Rate: 52 P: 27 [place]: 192 QRS: -46 QRSD: 114 T: -6 QT: 466 QTc: 436 Interpretive Statements SINUS BRADYCARDIA ABNORMAL LEFT AXIS DEVIATION Electronically Signed On 05-02-2021 15:39:22 CDT by Chilango Mcgrath
[2021-05-02 07:00] VITALS: BP 152/69
--- NOTE | 2021-05-02 07:59 | PDOC1 ---
History and Physical Date of Admission Date of Admission DATE: 05/02/21 TIME: 07:49 Identification/Chief Complaint Chief Complaint Chest pain Source Source: Patient History of Present Illness History of Present Illness Patient 75-year-old female past medical history HTN, HLD, [place], presents to the ED with complaints of substernal chest pain that began last night. She reports sharp chest pain that began while playing cards with her family. She denies any specific aggravating or relieving factors. She received 325 mg aspirin by EMS in route to the ED. Labs admission sodium creatinine 2.0, CBG 108, BNP 487, TSH 3.077, troponin 0.017. Chest x-ray showed no acute cardiopulmonary process. At the time my evaluation she denies any chest pain. Will admit patient for further medical management. Past Medical History Cardiovascular: CAD, HTN, Hyperlipidemia, Other Pulmonary: No pertinent hx CENTRAL NERVOUS SYSTEM: Other GI: GERD, Other Heme/Onc: Anemia NOS Renal/: Urinary Incontinence Endocrine: No pertinent hx Past Surgical History Past Surgical History: CABG, Total knee replacement, Other Family History Family History: Coronary Artery Disease Social History Smoke: Quit ALCOHOL: none Drugs: None Current Problem List Problem List Problems Medical Problems: (1) Acute on chronic renal failure Status: Acute Current Medications Current Medications Current Medications Nitroglycerin (Nitrostat) 0.4 mg PRN Q5MIN PRN SL CP RATING > 1/10; Start 05/01/21 at 21:15; Stop 05/02/21 at 21:14 Morphine Sulfate (Morphine Sulfate) 4 mg PRN Q15MIN PRN IV/SQ PAIN GREATER THAN 3/10; Start 05/01/21 at 21:15; Stop 05/02/21 at 21:14 Ondansetron HCl (Zofran) 4 mg PRN Q8HRS PRN IVP NAUSEA/VOMITING; Start 05/01/21 at 22:00; Stop 05/02/21 at 21:59 Morphine Sulfate (Morphine Sulfate) 4 mg PRN Q2HR PRN IVP PAIN; Start 05/01/21 at 22:00; Stop 05/02/21 at 21:59 Nitroglycerin (Nitrostat) 0.4 mg PRN Q5MIN PRN SL CHEST PAIN; Start 05/01/21 at 22:00; Stop 05/02/21 at 21:59 Active Scripts Active Reported Magnesium Oxide 250 Mg Tablet 250 Mg PO DAILY Doxycycline Hyclate 100 Mg Tablet.dr 1 Tab PO BID 7 Days Carvedilol 25 Mg Tablet 12.5 Mg PO BIDWMEALS Furosemide 40 Mg Tablet 40 Mg PO DAILY Pantoprazole Sodium (Pantoprazole Sodium) 40 Mg Tablet.dr 40 Mg PO DAILYAC Simvastatin 20 Mg Tablet 20 Mg PO HS Trazodone Hcl 100 Mg Tablet 100 Mg PO HS Fluoxetine Hcl 40 Mg Capsule 40 Mg PO DAILY Amlodipine Besylate 10 Mg Tablet 10 Mg PO DAILY Aspirin 81 Mg Tab.chew 81 Mg PO DAILY Tramadol Hcl 50 Mg Tablet 50 Mg PO Q6HRS PRN Potassium Chloride (Potassium Chloride) 20 Meq Tablet.er 20 Meq PO DAILY Gabapentin 600 Mg Tablet 300 Mg PO BID Multi Vitamin Daily (Multivitamin) 1 Each Tablet 1 Tab PO DAILY 30 Days [terozosin] 1 Mg PO HS Allergies Allergies: Coded Allergies: medina (Verified Allergy, Severe, ANAPHYLAXIS SENA BEANS, 09/28/19) SENA BEANS No Known Medication Allergies (Verified Allergy, Unknown, 09/27/19) ROS Review of System GENERAL: No history of weight change, weakness or fevers. SKIN: No bruising, hair changes or rashes. EYES: No blurred, double or loss of vision. NOSE AND THROAT: No history of nosebleeds, hoarseness or sore throat. HEART: Chest pain. Denies palpitations. LUNGS: Denies cough, hemoptysis, wheezing or shortness of breath. GASTROINTESTINAL: Denies nausea, vomiting, abdominal pain. GENITOURINARY: Denies dysuria, frequency, urgency, hematuria. NEUROLOGIC: Denies history of numbness, tingling, tremor or weakness. PSYCHIATRIC: Denies anxiety, denies depression. ENDOCRINE: No history of heat or cold intolerance, polyuria or polydipsia. EXTREMITIES: Denies muscle weakness, joint pain, pain on walking or stiffness. Physical Exam Physical Exam General: Alert, Oriented X3, Cooperative, No acute distress HEENT: PERRLA, EOMI Lungs: Clear to auscultation, Normal air movement Heart: Midline sternotomy scar. RRR, no murmurs Cardiovascular: S1, S2 Abdomen: Normal bowel sounds, Soft, No tenderness Extremities: No clubbing, No cyanosis Skin: No rashes, No significant lesion Neuro: Normal speech, Normal tone, Sensation intact Psych/Mental Status: Mental status NL, Mood NL Vitals Vitals Vital Signs Date Time Temp Pulse Resp B/P (MAP) Pulse Ox O2 Delivery O2 Flow Rate FiO2 05/02/21 03:00 97.6 59 16 97/48 (64) 98 Room Air 97.6 Labs Labs Laboratory Tests Test 05/01/21 21:14 05/01/21 22:17 05/02/21 02:00 05/02/21 04:30 White Blood Count 6.6 x10^3/uL (4.0-11.0) Red Blood Count 3.95 x10^6/uL (3.50-5.40) Hemoglobin 13.1 g/dL (12.0-15.5) Hematocrit 37.3 % (36.0-47.0) Mean Corpuscular Volume 95 fL (79-100) Mean Corpuscular Hemoglobin 33 pg (25-35) Mean Corpuscular Hemoglobin Concent 35 g/dL (31-37) Red Cell Distribution Width 12.6 % (11.5-14.5) Platelet Count 228 x10^3/uL (140-400) Neutrophils (%) (Auto) 58 % (31-73) Lymphocytes (%) (Auto) 30 % (24-48) Monocytes (%) (Auto) 13 % (0-9) Eosinophils (%) (Auto) 0 % (0-3) Basophils (%) (Auto) 0 % (0-3) Neutrophils # (Auto) 3.8 x10^3/uL (1.8-7.7) Lymphocytes # (Auto) 2.0 x10^3/uL (1.0-4.8) Monocytes # (Auto) 0.8 x10^3/uL (0.0-1.1) Eosinophils # (Auto) 0.0 x10^3/uL (0.0-0.7) Basophils # (Auto) 0.0 x10^3/uL (0.0-0.2) Sodium Level 140 mmol/L (136-145) 145 mmol/L (136-145) Potassium Level 4.1 mmol/L (3.5-5.1) 3.4 mmol/L (3.5-5.1) Chloride Level 104 mmol/L (98-107) 107 mmol/L (98-107) Carbon Dioxide Level 30 mmol/L (21-32) 30 mmol/L (21-32) Anion Gap 6 (6-14) 8 (6-14) Blood Urea Nitrogen 16 mg/dL (7-20) 15 mg/dL (7-20) Creatinine 2.0 mg/dL (0.6-1.0) 1.6 mg/dL (0.6-1.0) Estimated GFR (Cockcroft-Gault) 24.4 31.6 BUN/Creatinine Ratio 8 (6-20) 9 (6-20) Glucose Level 108 mg/dL (70-99) 97 mg/dL (70-99) Calcium Level 8.4 mg/dL (8.5-10.1) 8.0 mg/dL (8.5-10.1) Magnesium Level 2.0 mg/dL (1.8-2.4) Total Bilirubin 0.4 mg/dL (0.2-1.0) 0.3 mg/dL (0.2-1.0) Aspartate Amino Transf (AST/SGOT) 16 U/L (15-37) 17 U/L (15-37) Alanine Aminotransferase (ALT/SGPT) 25 U/L (14-59) 21 U/L (14-59) Alkaline Phosphatase 75 U/L (46-116) 65 U/L (46-116) Troponin I Quantitative < 0.017 ng/mL (0.000-0.055) < 0.017 ng/mL (0.000-0.055) < 0.017 ng/mL (0.000-0.055) RX-Yno-Y-Type Natriuretic Peptide 487 pg/mL (0-124) Total Protein 6.3 g/dL (6.4-8.2) 5.5 g/dL (6.4-8.2) Albumin 3.6 g/dL (3.4-5.0) 3.1 g/dL (3.4-5.0) Albumin/Globulin Ratio 1.3 (1.0-1.7) 1.3 (1.0-1.7) Thyroid Stimulating Hormone (TSH) 3.077 uIU/mL (0.358-3.74) SARS-CoV-2 Antigen (Rapid) Negative (NEGATIVE) Laboratory Tests Test 05/01/21 21:14 10/14/21 22:17 05/02/21 02:00 05/02/21 04:30 White Blood Count 6.6 x10^3/uL (4.0-11.0) Red Blood Count 3.95 x10^6/uL (3.50-5.40) Hemoglobin 13.1 g/dL (12.0-15.5) Hematocrit 37.3 % (36.0-47.0) Mean Corpuscular Volume 95 fL (79-100) Mean Corpuscular Hemoglobin 33 pg (25-35) Mean Corpuscular Hemoglobin Concent 35 g/dL (31-37) Red Cell Distribution Width 12.6 % (11.5-14.5) Platelet Count 228 x10^3/uL (140-400) Neutrophils (%) (Auto) 58 % (31-73) Lymphocytes (%) (Auto) 30 % (24-48) Monocytes (%) (Auto) 13 % (0-9) Eosinophils (%) (Auto) 0 % (0-3) Basophils (%) (Auto) 0 % (0-3) Neutrophils # (Auto) 3.8 x10^3/uL (1.8-7.7) Lymphocytes # (Auto) 2.0 x10^3/uL (1.0-4.8) Monocytes # (Auto) 0.8 x10^3/uL (0.0-1.1) Eosinophils # (Auto) 0.0 x10^3/uL (0.0-0.7) Basophils # (Auto) 0.0 x10^3/uL (0.0-0.2) Sodium Level 140 mmol/L (136-145) 145 mmol/L (136-145) Potassium Level 4.1 mmol/L (3.5-5.1) 3.4 mmol/L (3.5-5.1) Chloride Level 104 mmol/L (98-107) 107 mmol/L (98-107) Carbon Dioxide Level 30 mmol/L (21-32) 30 mmol/L (21-32) Anion Gap 6 (6-14) 8 (6-14) Blood Urea Nitrogen 16 mg/dL (7-20) 15 mg/dL (7-20) Creatinine 2.0 mg/dL (0.6-1.0) 1.6 mg/dL (0.6-1.0) Estimated GFR (Cockcroft-Gault) 24.4 31.6 BUN/Creatinine Ratio 8 (6-20) 9 (6-20) Glucose Level 108 mg/dL (70-99) 97 mg/dL (70-99) Calcium Level 8.4 mg/dL (8.5-10.1) 8.0 mg/dL (8.5-10.1) Magnesium Level 2.0 mg/dL (1.8-2.4) Total Bilirubin 0.4 mg/dL (0.2-1.0) 0.3 mg/dL (0.2-1.0) Aspartate Amino Transf (AST/SGOT) 16 U/L (15-37) 17 U/L (15-37) Alanine Aminotransferase (ALT/SGPT) 25 U/L (14-59) 21 U/L (14-59) Alkaline Phosphatase 75 U/L (46-116) 65 U/L (46-116) Troponin I Quantitative < 0.017 ng/mL (0.000-0.055) < 0.017 ng/mL (0.000-0.055) < 0.017 ng/mL (0.000-0.055) VB-Zbt-M-Type Natriuretic Peptide 487 pg/mL (0-124) Total Protein 6.3 g/dL (6.4-8.2) 5.5 g/dL (6.4-8.2) Albumin 3.6 g/dL (3.4-5.0) 3.1 g/dL (3.4-5.0) Albumin/Globulin Ratio 1.3 (1.0-1.7) 1.3 (1.0-1.7) Thyroid Stimulating Hormone (TSH) 3.077 uIU/mL (0.358-3.74) SARS-CoV-2 Antigen (Rapid) Negative (NEGATIVE) Images Images IMAGING REPORT Signed PATIENT: CRYS SANON ACCOUNT: [id number] : 1945 LOCATION: ER AGE: 75 SEX: F EXAM STATUS: REG ER ORD. PHYSICIAN: MUTUNGA,RANDEE M ACCOUNTING SUPERVISOR REASON: chest pain PROCEDURE: PORTABLE CHEST 1V Exam: Chest one view INDICATION: Chest pain TECHNIQUE: Frontal view of the chest Comparisons: 09/25/2019 FINDINGS: Sternotomy wires are noted. The cardiomediastinal silhouette and pulmonary vessels are within normal limits. The lung and pleural spaces are clear. IMPRESSION: No acute pulmonary process. VTE Prophylaxis Ordered VTE Prophylaxis Devices: No VTE Pharmacological Prophylaxi: Yes Assessment/Plan Assessment/Plan Chest pain Acute on chronic renal failure History [place] History CABG HTN HLD Plan: Consultation placed to cardiology Troponins have been trended and <0.017 x 3 Will obtain echocardiogram, lipid panel. Morphine, nitroglycerin as needed Resume home medications FEN - Cardiac diet PPX - Heparin FULL CODE Dispo - inpatient for above Patient states her surrogate decision-maker is her daughter (Bebe Blood) Justifications for Admission Other Justification ARUN ISABEL MD May 02, 2021 07:59
[2021-05-02] MEDS ORDERED: MAGNESIUM HYDROXIDE 2,400 MG/30 ML ORAL.SUSP. PO PRN (08:00)
[2021-05-02] MEDS ORDERED: CALCIUM CARBONATE 500 MG TAB.CHEW PO PRN (08:00)
[2021-05-02] MEDS ORDERED: HYDROcodone/APAP 5/325MG 1 TAB TABLET PO PRN (08:00)
[2021-05-02] MEDS ORDERED: MAG HYDROX/ALUMINUM HYD/SIMETH 30 ML ORAL.SUSP PO PRN (08:00)
[2021-05-02] MEDS ORDERED: ACETAMINOPHEN 325 MG TABLET. PO PRN (08:00)
[2021-05-02] MEDS ORDERED: ONDANSETRON PF 4 MG/2 ML VIAL. IVP PRN (08:00)
[2021-05-02] MEDS ORDERED: ZOLPIDEM 5 MG TABLET. PO PRN (08:15)
[2021-05-02 09:10] LABS: CHOLESTEROL/HDL RATIO 2.8
[2021-05-02] MEDS ORDERED: traMADol 50 MG TABLET PO PRN (09:15)
[2021-05-02] MEDS ORDERED: FLUoxetine HCL 20 MG CAPSULE PO SCH (10:00)
[2021-05-02] MEDS ORDERED: PANTOPRAZOLE 40 MG TABLET.DR. PO SCH (10:00)
[2021-05-02] MEDS ORDERED: FUROSEMIDE 40 MG TABLET. PO SCH (10:00)
[2021-05-02] MEDS ORDERED: GABAPENTIN 300 MG CAPSULE. PO SCH (10:00)
[2021-05-02] MEDS ORDERED: CARVEDILOL 12.5 MG TABLET. PO SCH (10:00)
[2021-05-02] MEDS ORDERED: ASPIRIN CHEWABLE 81 MG TABLET. PO SCH (10:00)
[2021-05-02] MEDS ORDERED: MAGNESIUM OXIDE 400 MG TABLET PO SCH (10:00)
[2021-05-02] MEDS ORDERED: POTASSIUM CHLORIDE 20 MEQ TABLET.ER. PO SCH (10:00)
--- NOTE | 2021-05-02 10:05 | PDOC2 ---
SAVANA LOPEZ BEAD WRAPPER 05/02/21 1005: CARDIAC CONSULT DATE OF CONSULT Date of Consult DATE: 05/02/21 TIME: 09:56 REASON FOR CONSULT Reason for Consult: Chest pain REFERRING PHYSICIAN Referring Physician: Hanna SOURCE Source: Chart review, Patient HISTORY OF PRESENT ILLNESS HISTORY OF PRESENT ILLNESS This is a 75 yo female admitted for complains of sharp midchest pain. No nausea or vomiting. Denies any fever chills or palpitations. Her CP is reproducible easily with palpation. She follows with [facility] cardiology. No recent falls or injury. No SOA. She did have some chills but no recorded fever with nonproductive cough. 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) Pulmonary: No pertinent hx CENTRAL NERVOUS SYSTEM: Other (No pertinent history) GI: GERD, Other (esophageal tear) Heme/Onc: Anemia NOS ENT: No pertinent hx Renal/: Urinary Incontinence Endocrine: No pertinent hx PAST SURGICAL HISTORY Past Surgical History CABG (x2 SVG to OM to RCA 2011), Total knee replacement (left), Other ([facility] 01/23/2019 with no intervention at [facility]; esophageal tear repari 2018) FAMILY HISTORY Family History Coronary Artery Disease (aunt) SOCIAL HISTORY Social History Smoke: Quit ALCOHOL: none Drugs: None Lives: with Family (daughter) ALLERGIES ALLERGIES: Coded Allergies: medina (Verified Allergy, Severe, ANAPHYLAXIS SENA BEANS, 09/28/19) SENA BEANS No Known Medication Allergies (Verified Allergy, Unknown, 09/27/19) ROS Review of System 14 point ROS evaluated with pertinent positives noted per HPI PHYSICAL EXAM General: Alert, Oriented X3, Cooperative, No acute distress HEENT: Atraumatic, Mucous membr. moist/pink Lungs: Clear to auscultation, Normal air movement Heart: Regular rate (SR), Normal S1, Normal S2, No murmurs Abdomen: Soft, No tenderness Extremities: No cyanosis, No edema Skin: No breakdown, No significant lesion Neuro: Normal speech, Sensation intact Psych/Mental Status: Mental status NL, Mood NL MUSCULOSKELETAL: Osteoarthritic changes both hands VITALS/I&O VITALS/I&O: Vital Signs Date Time Temp Pulse Resp B/P (MAP) Pulse Ox O2 Delivery O2 Flow Rate FiO2 05/02/21 07:00 96.5 80 17 152/69 (96) 96 Room Air 96.5 LABS Lab: Laboratory Tests Test 05/01/21 21:14 05/01/21 22:17 05/02/21 02:00 05/02/21 04:30 White Blood Count 6.6 x10^3/uL (4.0-11.0) Red Blood Count 3.95 x10^6/uL (3.50-5.40) Hemoglobin 13.1 g/dL (12.0-15.5) Hematocrit 37.3 % (36.0-47.0) Mean Corpuscular Volume 95 fL (79-100) Mean Corpuscular Hemoglobin 33 pg (25-35) Mean Corpuscular Hemoglobin Concent 35 g/dL (31-37) Red Cell Distribution Width 12.6 % (11.5-14.5) Platelet Count 228 x10^3/uL (140-400) Neutrophils (%) (Auto) 58 % (31-73) Lymphocytes (%) (Auto) 30 % (24-48) Monocytes (%) (Auto) 13 % (0-9) H Eosinophils (%) (Auto) 0 % (0-3) Basophils (%) (Auto) 0 % (0-3) Neutrophils # (Auto) 3.8 x10^3/uL (1.8-7.7) Lymphocytes # (Auto) 2.0 x10^3/uL (1.0-4.8) Monocytes # (Auto) 0.8 x10^3/uL (0.0-1.1) Eosinophils # (Auto) 0.0 x10^3/uL (0.0-0.7) Basophils # (Auto) 0.0 x10^3/uL (0.0-0.2) Sodium Level 140 mmol/L (136-145) 145 mmol/L (136-145) Potassium Level 4.1 mmol/L (3.5-5.1) 3.4 mmol/L (3.5-5.1) L Chloride Level 104 mmol/L (98-107) 107 mmol/L (98-107) Carbon Dioxide Level 30 mmol/L (21-32) 30 mmol/L (21-32) Anion Gap 6 (6-14) 8 (6-14) Blood Urea Nitrogen 16 mg/dL (7-20) 15 mg/dL (7-20) Creatinine 2.0 mg/dL (0.6-1.0) H 1.6 mg/dL (0.6-1.0) H Estimated GFR (Cockcroft-Gault) 24.4 31.6 BUN/Creatinine Ratio 8 (6-20) 9 (6-20) Glucose Level 108 mg/dL (70-99) H 97 mg/dL (70-99) Calcium Level 8.4 mg/dL (8.5-10.1) L 8.0 mg/dL (8.5-10.1) L Magnesium Level 2.0 mg/dL (1.8-2.4) Total Bilirubin 0.4 mg/dL (0.2-1.0) 0.3 mg/dL (0.2-1.0) Aspartate Amino Transferase (AST) 16 U/L (15-37) 17 U/L (15-37) Alanine Aminotransferase (ALT) 25 U/L (14-59) 21 U/L (14-59) Alkaline Phosphatase 75 U/L (46-116) 65 U/L (46-116) Troponin I Quantitative < 0.017 ng/mL (0.000-0.055) < 0.017 ng/mL (0.000-0.055) < 0.017 ng/mL (0.000-0.055) XK-Nqr-T-Type Natriuretic Peptide 487 pg/mL (0-124) H Total Protein 6.3 g/dL (6.4-8.2) L 5.5 g/dL (6.4-8.2) L Albumin 3.6 g/dL (3.4-5.0) 3.1 g/dL (3.4-5.0) L Albumin/Globulin Ratio 1.3 (1.0-1.7) 1.3 (1.0-1.7) Thyroid Stimulating Hormone (TSH) 3.077 uIU/mL (0.358-3.74) SARS-CoV-2 Antigen (Rapid) Negative (NEGATIVE) Triglycerides Level 61 mg/dL (0-150) Cholesterol Level 95 mg/dL (0-200) LDL Cholesterol, Calculated 49 mg/dL (0-100) VLDL Cholesterol, Calculated 12 mg/dL (0-40) Non-HDL Cholesterol Calculated 61 mg/dL (0-129) HDL Cholesterol 34 mg/dL (40-60) L Cholesterol/HDL Ratio 2.8 Laboratory Tests 05/01/21 21:14 Laboratory Tests 05/01/21 21:14 05/02/21 04:30 ASSESSMENT/PLAN ASSESSMENT/PLAN 1. Atypical CP; suspect MSK 2. Chronic RBBB 3. HTN: controlled 4. HLP 5. CAD: past CABG, clinically stable. Recommendations 1. May DC this afternoon from cardiac perspective pending TTE 2. Follow up with cardiology and consider stress test outpt if none recent 3. Secondary prevention measures JANUSZ PLASCENCIA MD 05/02/212119: CARDIAC CONSULT ASSESSMENT/PLAN ASSESSMENT/PLAN Patient seen and examined. Agree with LDR NURSE's assessment and plan. CP with atypical features and most prob musculoskeletal. . NV ruled out 2D echo showed normal LVF without any WMA CAD s/p CABG stable overall Plan ischemic eval as outpatient with primary cardiology Thank you for your consultation SAVANA LOPEZ APRN May 02, 2021 10:05 JANUSZ PLASCENCIA MD May 02, 2021 21:20
[2021-05-02 11:00] VITALS: BP 141/63
[2021-05-02 11:17] VITALS: BP 152/69
--- NOTE | 2021-05-02 11:55 | NUR ---
SS following for discharge planning. SS reviewed pt chart and discussed with pt RN. Pt is from home and is currently on room air. Cardiology consulted. SS will continue to follow for discharge planning.
--- NOTE | 2021-05-02 13:43 | CARD ---
MR#: [id number] Date of Study: 05/02/2021 Ordering Physician: ARUN ISABEL, Referring Physician: ARUN ISABEL Tech: Juan Floyd [facility] APPROVED REPORT EXAM: Two-dimensional and M-mode echocardiogram with Doppler and color Doppler. Other Information Quality : AverageHR: 56bpm Rhythm : Bradycardia INDICATION Chest Pain Congestive Heart Failure RISK FACTORS Hypertension Hyperlipidemia Remote NE 2D DIMENSIONS Left Atrium(2D)3.6 (1.6-4.0cm)IVSd0.8 (0.7-1.1cm) Aortic Root(2D)3.3 (2.0-3.7cm)LVDd4.8 (3.9-5.9cm) LVOT Diameter2.0 (1.8-2.4cm)PWd0.9 (0.7-1.1cm) LVDs2.8 (2.5-4.0cm)FS (%) 41.7 % SV79.5 mlLVEF(%)72.5 (>50%) Aortic Valve AoV Peak Romeo.173.1cm/sAoV VTI43.6cm AO Peak GR.12.0mmHgLVOT VTI 26.91cm AO Mean GR.6mmHg Mitral Valve MV E Dmlmaeon670.8cm/sMV E Peak Gr.7mmHg MV DECEL [id number] A Hblljjgt11.6cm/s MV E Mean Gr.2mmHgE/A Ratio1.2 TDI Lateral E' P. V7.47cm/sMedial E' P. V6.31cm/s E/Lateral E'15.0E/Medial E'17.7 Tricuspid Valve TR P. [id number]/sTR Peak Gr.27mmHg Pulmonary Vein S1 Bnlhnuxr91.9cm/sS2 Gznghxut72.18cm/s D2 Fujuqhir92.2cm/s LEFT VENTRICLE The left ventricle is normal size. There is normal left ventricular wall thickness. The left ventricu lar systolic function is normal. The ejection fraction is 65-70%. There is normal LV segmental wall m otion. No left ventricle thrombus noted on this study. There is no ventricular septal defect visualiz ed. There is no left ventricular aneurysm. There is no mass noted in the left ventricle. RIGHT VENTRICLE The right ventricle is normal size. There is normal right ventricular wall thickness. The right ventr icular systolic function is normal. ATRIA The left atrium is moderately dilated. The right atrium size is normal. The interatrial septum is int act with no evidence for an atrial septal defect or patent foramen ovale as noted on 2-D or Doppler i maging. AORTIC VALVE The aortic valve is normal in structure and function. Doppler and Color Flow revealed no significant aortic regurgitation. There is no significant aortic valvular stenosis. There is no aortic valvular v egetation. MITRAL VALVE The mitral valve is normal in structure and function. There is no evidence of mitral valve prolapse. There is no mitral valve stenosis. Doppler and Color-flow revealed trace to mild mitral regurgitation . TRICUSPID VALVE The tricuspid valve is normal in structure and function. Doppler and Color Flow revealed mild tricusp id regurgitation. The PA pressure was estimated at 37 mmHg. There is no tricuspid valve prolapse or v egetation. There is no tricuspid valve stenosis. PULMONIC VALVE The pulmonary valve is normal in structure and function. Doppler and Color Flow revealed no pulmonic valvular regurgitation. There is no pulmonic valvular stenosis. GREAT VESSELS The aortic root is normal in size. The ascending aorta is normal in size. The pulmonary artery is nor mal. The IVC is normal in size and collapses >50% with inspiration. PERICARDIAL EFFUSION There is no pleural effusion. There is no evidence of significant pericardial effusion. Critical Notification Critical Value: No <Conclusion> The left ventricular systolic function is normal. The ejection fraction is 65-70%. There is normal LV segmental wall motion. Trace to mild mitral regurgitation. Mild tricuspid regurgitation. The PA pressure was estimated at 37 mmHg. There is no evidence of significant pericardial effusion. Signed by : Jeff Perkins, Electronically Approved : 05/02/2021 13:43:04
[2021-05-02] MEDS ORDERED: HEPARIN for SUB-Q USE 5,000 UNIT/ML VIAL. SQ SCH (14:00)
--- NOTE | 2021-05-02 14:00 | PDOC3 ---
Discharge Summary Visit Information Date of Admission: May 02, 2021 Date of Discharge: May 02, 2021 Final Diagnosis Problems Medical Problems: (1) Acute on chronic renal failure Status: Acute Brief Hospital Course Allergies Allergies Coded Allergies Type Severity Reaction Last Updated Verified medina Allergy Severe ANAPHYLAXIS SENA BEANS 09/28/19 Yes No Known Medication Allergies Allergy Unknown 09/27/19 Yes Vital Signs Vital Signs Date Time Temp Pulse Resp B/P (MAP) Pulse Ox O2 Delivery O2 Flow Rate FiO2 05/02/21 11:17 80 152/69 05/02/21 11:00 98.2 18 96 Room Air 98.2 Lab Results Laboratory Tests Test 05/01/21 21:14 05/01/21 22:17 05/02/21 02:00 05/02/21 04:30 White Blood Count 6.6 x10^3/uL (4.0-11.0) Red Blood Count 3.95 x10^6/uL (3.50-5.40) Hemoglobin 13.1 g/dL (12.0-15.5) Hematocrit 37.3 % (36.0-47.0) Mean Corpuscular Volume 95 fL (79-100) Mean Corpuscular Hemoglobin 33 pg (25-35) Mean Corpuscular Hemoglobin Concent 35 g/dL (31-37) Red Cell Distribution Width 12.6 % (11.5-14.5) Platelet Count 228 x10^3/uL (140-400) Neutrophils (%) (Auto) 58 % (31-73) Lymphocytes (%) (Auto) 30 % (24-48) Monocytes (%) (Auto) 13 % (0-9) Eosinophils (%) (Auto) 0 % (0-3) Basophils (%) (Auto) 0 % (0-3) Neutrophils # (Auto) 3.8 x10^3/uL (1.8-7.7) Lymphocytes # (Auto) 2.0 x10^3/uL (1.0-4.8) Monocytes # (Auto) 0.8 x10^3/uL (0.0-1.1) Eosinophils # (Auto) 0.0 x10^3/uL (0.0-0.7) Basophils # (Auto) 0.0 x10^3/uL (0.0-0.2) Sodium Level 140 mmol/L (136-145) 145 mmol/L (136-145) Potassium Level 4.1 mmol/L (3.5-5.1) 3.4 mmol/L (3.5-5.1) Chloride Level 104 mmol/L (98-107) 107 mmol/L (98-107) Carbon Dioxide Level 30 mmol/L (21-32) 30 mmol/L (21-32) Anion Gap 6 (6-14) 8 (6-14) Blood Urea Nitrogen 16 mg/dL (7-20) 15 mg/dL (7-20) Creatinine 2.0 mg/dL (0.6-1.0) 1.6 mg/dL (0.6-1.0) Estimated GFR (Cockcroft-Gault) 24.4 31.6 BUN/Creatinine Ratio 8 (6-20) 9 (6-20) Glucose Level 108 mg/dL (70-99) 97 mg/dL (70-99) Calcium Level 8.4 mg/dL (8.5-10.1) 8.0 mg/dL (8.5-10.1) Magnesium Level 2.0 mg/dL (1.8-2.4) Total Bilirubin 0.4 mg/dL (0.2-1.0) 0.3 mg/dL (0.2-1.0) Aspartate Amino Transf (AST/SGOT) 16 U/L (15-37) 17 U/L (15-37) Alanine Aminotransferase (ALT/SGPT) 25 U/L (14-59) 21 U/L (14-59) Alkaline Phosphatase 75 U/L (46-116) 65 U/L (46-116) Troponin I Quantitative < 0.017 ng/mL (0.000-0.055) < 0.017 ng/mL (0.000-0.055) < 0.017 ng/mL (0.000-0.055) PT-Urr-Y-Type Natriuretic Peptide 487 pg/mL (0-124) Total Protein 6.3 g/dL (6.4-8.2) 5.5 g/dL (6.4-8.2) Albumin 3.6 g/dL (3.4-5.0) 3.1 g/dL (3.4-5.0) Albumin/Globulin Ratio 1.3 (1.0-1.7) 1.3 (1.0-1.7) Thyroid Stimulating Hormone (TSH) 3.077 uIU/mL (0.358-3.74) SARS-CoV-2 RNA (ARMANDO) Negative (Negative) SARS-CoV-2 Antigen (Rapid) Negative (NEGATIVE) Triglycerides Level 61 mg/dL (0-150) Cholesterol Level 95 mg/dL (0-200) LDL Cholesterol, Calculated 49 mg/dL (0-100) VLDL Cholesterol, Calculated 12 mg/dL (0-40) Non-HDL Cholesterol Calculated 61 mg/dL (0-129) HDL Cholesterol 34 mg/dL (40-60) Cholesterol/HDL Ratio 2.8 Laboratory Tests Test 05/01/21 21:14 05/01/21 22:17 05/02/21 02:00 05/02/21 04:30 White Blood Count 6.6 x10^3/uL (4.0-11.0) Red Blood Count 3.95 x10^6/uL (3.50-5.40) Hemoglobin 13.1 g/dL (12.0-15.5) Hematocrit 37.3 % (36.0-47.0) Mean Corpuscular Volume 95 fL (79-100) Mean Corpuscular Hemoglobin 33 pg (25-35) Mean Corpuscular Hemoglobin Concent 35 g/dL (31-37) Red Cell Distribution Width 12.6 % (11.5-14.5) Platelet Count 228 x10^3/uL (140-400) Neutrophils (%) (Auto) 58 % (31-73) Lymphocytes (%) (Auto) 30 % (24-48) Monocytes (%) (Auto) 13 % (0-9) Eosinophils (%) (Auto) 0 % (0-3) Basophils (%) (Auto) 0 % (0-3) Neutrophils # (Auto) 3.8 x10^3/uL (1.8-7.7) Lymphocytes # (Auto) 2.0 x10^3/uL (1.0-4.8) Monocytes # (Auto) 0.8 x10^3/uL (0.0-1.1) Eosinophils # (Auto) 0.0 x10^3/uL (0.0-0.7) Basophils # (Auto) 0.0 x10^3/uL (0.0-0.2) Sodium Level 140 mmol/L (136-145) 145 mmol/L (136-145) Potassium Level 4.1 mmol/L (3.5-5.1) 3.4 mmol/L (3.5-5.1) Chloride Level 104 mmol/L (98-107) 107 mmol/L (98-107) Carbon Dioxide Level 30 mmol/L (21-32) 30 mmol/L (21-32) Anion Gap 6 (6-14) 8 (6-14) Blood Urea Nitrogen 16 mg/dL (7-20) 15 mg/dL (7-20) Creatinine 2.0 mg/dL (0.6-1.0) 1.6 mg/dL (0.6-1.0) Estimated GFR (Cockcroft-Gault) 24.4 31.6 BUN/Creatinine Ratio 8 (6-20) 9 (6-20) Glucose Level 108 mg/dL (70-99) 97 mg/dL (70-99) Calcium Level 8.4 mg/dL (8.5-10.1) 8.0 mg/dL (8.5-10.1) Magnesium Level 2.0 mg/dL (1.8-2.4) Total Bilirubin 0.4 mg/dL (0.2-1.0) 0.3 mg/dL (0.2-1.0) Aspartate Amino Transf (AST/SGOT) 16 U/L (15-37) 17 U/L (15-37) Alanine Aminotransferase (ALT/SGPT) 25 U/L (14-59) 21 U/L (14-59) Alkaline Phosphatase 75 U/L (46-116) 65 U/L (46-116) Troponin I Quantitative < 0.017 ng/mL (0.000-0.055) < 0.017 ng/mL (0.000-0.055) < 0.017 ng/mL (0.000-0.055) PK-Uiq-L-Type Natriuretic Peptide 487 pg/mL (0-124) Total Protein 6.3 g/dL (6.4-8.2) 5.5 g/dL (6.4-8.2) Albumin 3.6 g/dL (3.4-5.0) 3.1 g/dL (3.4-5.0) Albumin/Globulin Ratio 1.3 (1.0-1.7) 1.3 (1.0-1.7) Thyroid Stimulating Hormone (TSH) 3.077 uIU/mL (0.358-3.74) SARS-CoV-2 RNA (ARMANDO) Negative (Negative) SARS-CoV-2 Antigen (Rapid) Negative (NEGATIVE) Triglycerides Level 61 mg/dL (0-150) Cholesterol Level 95 mg/dL (0-200) LDL Cholesterol, Calculated 49 mg/dL (0-100) VLDL Cholesterol, Calculated 12 mg/dL (0-40) Non-HDL Cholesterol Calculated 61 mg/dL (0-129) HDL Cholesterol 34 mg/dL (40-60) Cholesterol/HDL Ratio 2.8 Brief Hospital Course Ms. Mahcado is a 75 old female who presented with chest pain. Consultations were to cardiology. Troponins <0.017x3. Echocardiogram was obtained and showed normal left ventricular systolic function with EF 65 to 70%. Stable to discharge home with family care and close PCP follow-up and 5-7 days and outpatient cardiology follow-up. Discharge Information Condition at Discharge: Stable Disposition/Orders: D/C to Home Scheduled Amlodipine Besylate (Amlodipine Besylate) 10 Mg Tablet, 10 MG PO DAILY for htn, (Reported) Entered as Reported by: MELANIA GARY on 05/27/191855 Last Action: Continued on 05/02/21907 by ARUN ISABEL MD Aspirin (Aspirin) 81 Mg Tab.chew, 81 MG PO DAILY for heart, (Reported) Entered as Reported by: MELANIA GARY on 05/27/191855 Last Action: Continued on 05/02/21907 by ARUN ISABEL MD Carvedilol (Carvedilol) 25 Mg Tablet, 12.5 MG PO BIDWMEALS for CARDIAC, (Reported) Entered as Reported by: MELANIA GARY on 05/27/191855 Last Action: Converted on 05/02/21907 by ARUN ISABEL MD Doxycycline Hyclate (Doxycycline Hyclate) 100 Mg Tablet.dr, 1 TAB PO BID for cellulitis for 7 Days, #14 (Reported) Entered as Reported by: Nannette Kay on 09/26/19 0032 Fluoxetine Hcl (Fluoxetine Hcl) 40 Mg Capsule, 40 MG PO DAILY for depression, (Reported) Entered as Reported by: MELANIA GARY on 05/27/191855 Last Action: Converted on 05/02/21907 by ARUN ISABEL MD Furosemide (Furosemide) 40 Mg Tablet, 40 MG PO DAILY for htn, (Reported) Entered as Reported by: MELANIA GARY on 05/27/191855 Last Action: Continued on 05/02/21907 by ARUN ISABEL MD Gabapentin (Gabapentin) 600 Mg Tablet, 300 MG PO BID for NEUROGENIC PAIN, (Reported) Entered as Reported by: MELANIA GARY on 05/27/191855 Last Action: Converted on 05/02/21907 by ARUN ISABEL MD Magnesium Oxide (Magnesium Oxide) 250 Mg Tablet, 250 MG PO DAILY for replacement, (Reported) Entered as Reported by: COLT LINARES RN on 09/26/19 1310 Last Action: Converted on 05/02/21907 by ARUN ISABEL MD Multivitamin (Multi Vitamin Daily) 1 Each Tablet, 1 TAB PO DAILY for health for 30 Days, #30 Ref 0 (Reported) Entered as Reported by: MELANIA GARY on 05/27/191826 Pantoprazole Sodium (Pantoprazole Sodium ) 40 Mg Tablet.dr, 40 MG PO DAILYAC for GERD, (Reported) Entered as Reported by: MELANIA GARY on 05/27/191855 Last Action: Continued on 05/02/21907 by ARUN ISABEL MD Potassium Chloride (Potassium Chloride ) 20 Meq Tablet.er, 20 MEQ PO DAILY for lasix, (Reported) Entered as Reported by: MELANIA GARY on 05/27/191855 Last Action: Continued on 05/02/21907 by ARUN ISABEL MD Simvastatin (Simvastatin) 20 Mg Tablet, 20 MG PO HS for FOR CHOLESTEROL, #30 Ref 0 (Reported) Entered as Reported by: MELANIA GARY on 05/27/191855 Last Action: Continued on 05/02/21907 by ARUN ISABEL MD Trazodone Hcl (Trazodone Hcl) 100 Mg Tablet, 100 MG PO HS for sleep, (Reported) Entered as Reported by: MELANIA GARY on 05/27/191855 [terozosin] , 1 MG PO HS for urinary retention, (Reported) Entered as Reported by: MELANIA GARY on 05/27/191826 Scheduled PRN Tramadol Hcl (Tramadol Hcl) 50 Mg Tablet, 50 MG PO Q6HRS PRN for PAIN, (Reported) Entered as Reported by: MELANIA GARY on 05/27/191855 Last Action: Continued on 05/02/21 0908 by ARUN ISABEL MD Justicifation of Admission Dx: Justifications for Admission: Justification of Admission Dx: Yes ARUN ISABEL MD May 02, 2021 13:59
[2021-05-02] MEDS ORDERED: SIMVASTATIN 20 MG TABLET PO SCH (21:00)
== END 2021-05-02 14:40 | disposition home or self-care (01) ==
LOC: ER 20:57 → INTOOBSV 21:33 → 6 SOUTH 21:33
PROVIDERS: ADMIT Internal Medicine; ATTEND Internal Medicine
DX: N17.9 Acute kidney failure, unspecified (principal); Z20.822 Contact with and (suspected) exposure to COVID-19; R07.89 Other chest pain; I12.9 Hypertensive chronic kidney disease with stage 1 through stage 4 chronic kidney disease, or unspecified chronic kidney disease; N18.9 Chronic kidney disease, unspecified; I25.10 Atherosclerotic heart disease of native coronary artery without angina pectoris; E78.00 Pure hypercholesterolemia, unspecified; E78.5 Hyperlipidemia, unspecified; F32.A Depression, unspecified; I25.2 Old myocardial infarction; I45.10 Unspecified right bundle-branch block; K21.9 Gastro-esophageal reflux disease without esophagitis; Z79.82 Long term (current) use of aspirin; Z79.899 Other long term (current) drug therapy; Z87.891 Personal history of nicotine dependence; Z95.1 Presence of aortocoronary bypass graft; Z96.652 Presence of left artificial knee joint; Z90.49 Acquired absence of other specified parts of digestive tract; Z98.890 Other specified postprocedural states
CPT/HCPCS: 36415; 71045; 80053; 80061; 83735; 83880; 84443; 84484; 85025; 87426; 93005; 93306; 99285; G0378; U0003; U0005; G0379

== ENCOUNTER 2021-08-12 23:43 | Emergency (ER) | payer OTHER, MEDICAID ==
[~2021-08-12] VITALS: Ht 154.9 cm; Wt 72.7 kg
--- NOTE | 2021-08-13 00:05 | ED.ADGEN ---
Past Medical History Past Medical History: Depression, High Cholesterol, Hypertension, [place], Renal Failure, Other Additional Past Medical Histor: neuropathy,CELLULITIS Past Surgical History: Cholecystectomy, Coronary Bypass Surgery, Knee Replacement, Other Additional Past Surgical Histo: esophageal repair Smoking Status: Former Smoker Alcohol Use: None Drug Use: None General Adult EDM: Chief Complaint: CHEST PAIN-CARDIAC NATURE HPI: HPI: Patient is a 75 year old female coming in via EMS from assisted living for chest pain. Patient states about 45 minutes ago started having chest pain that felt like someone standing on her chest states that when EMS got there is about a 7 out of 10. On arrival to the emergency department was 2 out of 10. She was given 4 baby aspirin by EMS. Patient states she had similar symptoms about 8 months ago. Patient states she also had diarrhea, shortness of breath and a cough. Patient has a history of cardiac surgery and thinks she had a valve replacement. Patient is a poor historian and states she has no other medical problems. Patient has no tobacco, alcohol, drug use. Patient has not gotten her Covid 19 nor influenza vaccines. Review of Systems: Review of Systems: All other systems within normal limits except for as noted in the HPI Allergies: Allergies: Allergies Coded Allergies Type Severity Reaction Last Updated Verified medina Allergy Severe ANAPHYLAXIS SENA BEANS 09/28/19 Yes No Known Medication Allergies Allergy Unknown 09/27/19 Yes Physical Exam: PE: Constitutional: Well developed, well nourished, no acute distress, non-toxic appearance. [] HENT: Normocephalic, atraumatic, bilateral external ears normal, nose normal. [] Eyes: PERRLA, conjunctiva normal, no discharge. [] Neck: No rigidity, supple, no stridor. [] Cardiovascular: Regular rate and rhythm, brisk cap refill [] Lungs & Thorax: Non labored symmetric respirations, no tachypnea or respiratory distress. Lungs clear to auscultation. Midline sternotomy scar Abdomen: Soft, nondistended. Skin: Warm, dry, no erythema, no rash. [] Back: Unremarkable Extremities: No deformities, range of motion grossly intact, no lower extremity edema [] Neurologic: Alert and oriented X 3, no focal deficits noted. [] Psychologic: Affect normal, judgement normal, mood normal. [] Current Patient Data: Labs: Laboratory Tests Test 08/13/21 01:30 White Blood Count 4.3 x10^3/uL (4.0-11.0) Red Blood Count 4.15 x10^6/uL (3.50-5.40) Hemoglobin 13.1 g/dL (12.0-15.5) Hematocrit 39.7 % (36.0-47.0) Mean Corpuscular Volume 96 fL (79-100) Mean Corpuscular Hemoglobin 32 pg (25-35) Mean Corpuscular Hemoglobin Concent 33 g/dL (31-37) Red Cell Distribution Width 12.4 % (11.5-14.5) Platelet Count 151 x10^3/uL (140-400) Neutrophils (%) (Auto) 50 % (31-73) Lymphocytes (%) (Auto) 29 % (24-48) Monocytes (%) (Auto) 20 % (0-9) H Eosinophils (%) (Auto) 0 % (0-3) Basophils (%) (Auto) 1 % (0-3) Neutrophils # (Auto) 2.1 x10^3/uL (1.8-7.7) Lymphocytes # (Auto) 1.2 x10^3/uL (1.0-4.8) Monocytes # (Auto) 0.9 x10^3/uL (0.0-1.1) Eosinophils # (Auto) 0.0 x10^3/uL (0.0-0.7) Basophils # (Auto) 0.1 x10^3/uL (0.0-0.2) Segmented Neutrophils % 46 % (35-66) Band Neutrophils % 4 % (0-9) Lymphocytes % 33 % (24-48) Monocytes % 17 % (0-10) H Platelet Estimate Adequate (ADEQUATE) Sodium Level 138 mmol/L (136-145) Potassium Level 3.8 mmol/L (3.5-5.1) Chloride Level 105 mmol/L (98-107) Carbon Dioxide Level 28 mmol/L (21-32) Anion Gap 5 (6-14) L Blood Urea Nitrogen 25 mg/dL (7-20) H Creatinine 2.3 mg/dL (0.6-1.0) H Estimated GFR (Cockcroft-Gault) 20.8 BUN/Creatinine Ratio 11 (6-20) Glucose Level 128 mg/dL (70-99) H Calcium Level 8.2 mg/dL (8.5-10.1) L Total Bilirubin 0.2 mg/dL (0.2-1.0) Aspartate Amino Transferase (AST) 19 U/L (15-37) Alanine Aminotransferase (ALT) 20 U/L (14-59) Alkaline Phosphatase 78 U/L (46-116) Troponin I High Sensitivity 11 ng/L (4-50) CD-Dtc-U-Type Natriuretic Peptide 706 pg/mL (0-124) H Total Protein 6.4 g/dL (6.4-8.2) Albumin 3.2 g/dL (3.4-5.0) L Albumin/Globulin Ratio 1.0 (1.0-1.7) Lipase 64 U/L (73-393) L Influenza Type A Antigen Negative (NEGATIVE) Influenza Type B Antigen Negative (NEGATIVE) SARS-CoV-2 Antigen (Rapid) Positive (NEGATIVE) *A Laboratory Tests 08/13/21 01:30 Laboratory Tests 08/13/21 01:30 EKG: EKG: Sinus rhythm, heart rate 50 bpm, right bundle and left anterior fascicular block, left axis deviation, no STEMI. No significant change when compared to EKG dated 05-01-21 Heart Score: C/O Chest Pain: Yes HEART Score for Chest Pain: HEART Score for Chest Pain Response (Comments) Value History Slighlty/Non-Suspicious 0 ECG Nonspecific Repolarizatio 1 Age > 65 2 Risk Factors >3 Risk Factors or Hx CAD 2 Troponin < Normal Limit 0 Total 5 Risk Factors: Risk Factors: DM, Current or recent (<one month) smoker, HTN, HLP, family history of CAD, obesity. Risk Scores: Score 0 - 3: 2.5% MACE over next 6 weeks - Discharge Home Score 4 - 6: 20.3% MACE over next 6 weeks - Admit for Clinical Observation Score 7 - 10: 72.7% MACE over next 6 weeks - Early Invasive Strategies Radiology/Procedures: Radiology/Procedures: [facility] [address] [place] [address] IMAGING REPORT Signed PATIENT: CRYS SANON ACCOUNT: [id number] : 1945 LOCATION: ER AGE: 75 SEX: F EXAM STATUS: REG ER ORD. PHYSICIAN: KARMEN IRBY MD REASON: chest pain PROCEDURE: CHEST AP ONLY XR CHEST 1V Clinical Indication: Reason: chest pain / Spl. Instructions: / History: Comparison: AP chest May 01, 2021. Findings: There are median sternotomy wires. The cardiomediastinal silhouette is normal. Lungs are clear. There is no pneumothorax. No pleural effusion is appreciated. No acute bone abnormality. IMPRESSION: No acute cardiopulmonary process. Electronically signed by: Dustin Traore MD (08/13/2021 12:33 AM) [facility] DICTATED and SIGNED BY: DUSTIN TRAORE MD DATE: 08/13/21 [id number] [] Course & Med Decision Making: Course & Med Decision Making Pertinent Labs and Imaging studies reviewed. (See chart for details) [] Dragon Disclaimer: Dragon Disclaimer: This electronic medical record was generated, in whole or in part, using a voice recognition dictation system. Departure Departure Impression: Primary Impression: COVID Disposition: HOME / SELF CARE / HOMELESS Condition: STABLE Referrals: TERRY HICKMAN MD (PCP) Additional Instructions: You have been tested for or diagnosed with COVID-19. It is an infection caused by a new type of coronavirus. COVID-19 will cause cold-like or mild flu symptoms in most. It can cause more severe symptoms like problems breathing in some. There is no treatment for COVID-19. The body will clear the infection over time. Self-care will help to ease discomfort. Steps to Take: Self-Care Rest as needed. Healthy habits may help you feel better. Steps include: Choose healthy foods including fruits and vegetables. Drink water throughout the day. Get plenty of sleep each night. If you smoke, try to quit. It may ease breathing. Avoid alcohol. Keep Others Healthy The virus can spread to others. Droplets are released every time you sneeze or cough. The droplets can get into the mouth, nose, or eyes of people near you and lead to infection. To lower the chances of spreading COVID-19 to others: Stay at home until your doctor has said it is safe to leave. If you tested positive this will mean staying isolated until both of the following are true: At least 7 days have passed since the start of illness. You are free of fever for at least 72 hours without the use of medicine. During this time: - Avoid public areas, events, or transportation. Do not return to work or school until your doctor has said it is safe to do so. - Call ahead if you need to go to a medical center. Let them know you may have COVID-19. It will help them guide you where to go. They may also ask you to wear a facemask when you come to the office. - If you call for emergency medical services, let them know you may have COVID- 19. While at home: - Try to avoid close contact with others. Stay about 6 feet away. - If possible, spend most of your time in a separate room from others. - Use a face mask if you will be in close contact with others such as sharing a room or vehicle. - Have someone wipe down common surfaces in the home. Use household credit portfolio manager every day on areas like doorknobs, counters, or sinks. - Cough or sneeze into a tissue. Throw the tissue away right after use. If a tissue is not available, cough or sneeze into your elbow. - Wash your hands often. Wash them after sneezing or coughing. Use soap and water and wash for at least 20 seconds. Alcohol based hand welt stitch cleaner can be used if soap and water is not available. - Do not prepare food for others. Avoid sharing personal items like forks, spoons, or toothbrushes. - Avoid close contact with pets while you are sick. There is no evidence of the virus passing to pets. This is a safety step until more is known about this virus. Isolation can be frustrating. Social interaction can help. Keep in touch with friends and family through phone and tech options. You can still interact with others in your home, just keep a safe distance of about 6 feet. Follow-up: Your doctors office will check in with you to see if there are any changes in your health. You may be asked to keep track of symptoms to share with them. They will also let you know when you are clear to be in public again. Problems to Look Out For: Contact your doctor if your recovery is not going as you expect. Get emergency care if you have problems such as: - Trouble breathing - Nonstop chest pain or pressure - Changes in awareness, confusion, or problems waking - Lips or face have bluish color - Worsening of symptoms If you think you have an emergency, call for emergency medical services right away. As taken from [facility] Albuterol Sulfate (PROAIR HFA INHALER) 8.5 Gm Hfa.aer.ad 2 PUFF IH PRN Q4-6HRS PRN for wheezing for 21 Days, #1 INHALER 0 Refills Prov: KARMEN IRBY MD 08/13/21 KARMEN IRBY MD Aug 13, 2021 00:05
--- NOTE | 2021-08-13 00:35 | RAD ---
XR CHEST 1V Clinical Indication: Reason: chest pain / Spl. Instructions: / History: Comparison: AP chest May 01, 2021. Findings: There are median sternotomy wires. The cardiomediastinal silhouette is normal. Lungs are clear. There is no pneumothorax. No pleural effusion is appreciated. No acute bone abnormality. IMPRESSION: No acute cardiopulmonary process. Electronically signed by: Dustin Traore MD (08/13/2021 12:33 AM) [facility]
[2021-08-13 01:43] LABS: BASO # 0.1 x10^3/uL (0.0-0.2); BASO % 1 % (0-3); EOS % 0 % (0-3); HEMATOCRIT 39.7 % (36.0-47.0); HEMOGLOBIN 13.1 g/dL (12.0-15.5); LYMPH # 1.2 x10^3/uL (1.0-4.8); LYMPH % 29 % (24-48); MEAN CORPUSCULAR HEMOGLOBIN 32 pg (25-35); MEAN CORPUSCULAR HGB CONC 33 g/dL (31-37); MEAN CORPUSCULAR VOLUME 96 fL (79-100); MONO # 0.9 x10^3/uL (0.0-1.1); MONO % 20 % (0-9); NEUT # 2.1 x10^3/uL (1.8-7.7); NEUT % 50 % (31-73); PLATELET COUNT 151 x10^3/uL (140-400); RED BLOOD COUNT 4.15 x10^6/uL (3.50-5.40); RED CELL DISTRIBUTION WIDTH 12.4 % (11.5-14.5); WHITE BLOOD COUNT 4.3 x10^3/uL (4.0-11.0)
[2021-08-13 01:53] LABS: CALCIUM 8.2 mg/dL (8.5-10.1); CREATININE 2.3 mg/dL (0.6-1.0); GFR 20.8; POTASSIUM 3.8 mmol/L (3.5-5.1)
[2021-08-13 01:58] LABS: INFLUENZA A PATIENT NEGATIVE (NEGATIVE); INFLUENZA B PATIENT NEGATIVE (NEGATIVE)
[2021-08-13 01:59] LABS: ALBUMIN 3.2 g/dL (3.4-5.0); TOTAL BILIRUBIN 0.2 mg/dL (0.2-1.0); TOTAL PROTEIN 6.4 g/dL (6.4-8.2)
[2021-08-13 02:11] LABS: % BANDS 4 % (0-9); % LYMPHS 33 % (24-48); % MONOS 17 % (0-10); % SEGS 46 % (35-66); PLT ESTIMATE ADEQUATE (ADEQUATE)
[2021-08-13 02:26] VITALS: BP 119/56
[2021-08-13] MEDS ORDERED: ALBU2.5V8 IH (02:42)
--- NOTE | 2021-08-13 04:31 | EKG ---
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
== END 2021-08-13 02:59 | disposition home or self-care (01) ==
LOC: ER 23:43
DX: U07.1 COVID-19 (principal); I12.9 Hypertensive chronic kidney disease with stage 1 through stage 4 chronic kidney disease, or unspecified chronic kidney disease; N18.9 Chronic kidney disease, unspecified; E78.00 Pure hypercholesterolemia, unspecified; I25.2 Old myocardial infarction; Z95.1 Presence of aortocoronary bypass graft; Z87.891 Personal history of nicotine dependence; Z91.018 Allergy to other foods
CPT/HCPCS: 36415; 71045; 80053; 83690; 83880; 84484; 85007; 85025; 87428; 93005; 99285-25